=== PATIENT | female | born 1960 | race Caucasian/White ===

== ENCOUNTER 2016-12-20 06:02 | Observation (INO) | payer BC ==
[2016-12-20] MEDS ORDERED: NITROGLYCERIN SL TABS 0.4 MG TAB SUBLINGUAL STA ×3 (06:17)
[2016-12-20] MEDS ORDERED: SODIUM CHLORIDE 0.9% 1,000 ML IV STA (06:17)
[2016-12-20] MEDS ORDERED: ASPIRIN 81 MG CHEW PO STA (06:17)
--- NOTE | 2016-12-20 06:19 | ED ---
General Adult HPI - General Source: patient, RN notes reviewed Limitations: no limitations <Elian Burnham - Last Filed: 12/20/16 06:18> <Kevin Miller - Last Filed: 12/20/16 08:54> - General Stated complaint: Chest Pain Time Seen by Provider: 12/20/16 06:04 - History of Present Illness Initial comments: Patient is a pleasant 56-year-old female presenting to the emergency department complaining of chest discomfort. Onset was just prior to arrival. Patient was making pizza. Patient plaints of tightness in her chest with radiation to the back. There is some improvement since onset. Discomfort is currently rated 6/ 10. Patient does have some associated dyspnea. No nausea or diaphoresis. No history of similar symptoms previously. No leg pain or leg swelling. (Elian Burnham) - Related Data Home Medications Medication Instructions Recorded Confirmed Atenolol [Tenormin] 50 mg PO DAILY 11/26/14 12/20/16 Aspirin EC [Ecotrin] 81 mg PO DAILY 03/18/15 12/20/16 Niacin 500 mg PO DAILY 03/18/15 12/20/16 Vit C/E/Zn/Coppr/Lutein/Zeaxan 1 cap PO DAILY 03/18/15 12/20/16 [Preservision Areds 2 Softgel] Atorvastatin [Lipitor] 40 mg PO DAILY 12/20/16 12/20/16 Cholecalciferol [Vitamin D3] 1,000 unit PO DAILY 12/20/16 12/20/16 FLUoxetine HCL [PROzac] 20 mg PO DAILY 12/20/16 12/20/16 Omeprazole [PriLOSEC] 40 mg PO DAILY 12/20/16 12/20/16 metFORMIN HCL [Glucophage] 1,000 mg PO BID 12/20/16 12/20/16 sitaGLIPtin [Januvia] 100 mg PO DAILY 12/20/16 12/20/16 Allergies Allergy/AdvReac Type Severity Reaction Status Date / Time Gladwin And Derivatives Allergy Rash/Hives Verified 12/20/16 06:14 [Gladwin] metronidazole [From Flagyl] Allergy Rash/Hives Verified 12/20/16 06:14 adhesive AdvReac Rash/Hives Verified 12/20/16 06:14 Review of Systems ROS Other: All systems not noted in ROS Statement are negative. Constitutional: Denies: fever Eyes: Denies: eye pain ENT: Denies: ear pain Respiratory: Reports: dyspnea. Denies: cough Cardiovascular: Reports: chest pain Endocrine: Denies: fatigue Gastrointestinal: Denies: abdominal pain Genitourinary: Denies: dysuria Musculoskeletal: Denies: back pain Skin: Denies: rash Neurological: Denies: weakness <Elian Burnham Last Filed: 12/20/16 06:18> ROS Other: All systems not noted in ROS Statement are negative. <Kevin Miller - Last Filed: 12/20/16 08:54> ROS Statement: Those systems with pertinent positive or pertinent negative responses have been documented in the HPI. Past Medical History Past Medical History: Diabetes Mellitus, GERD/Reflux, Hyperlipidemia, Hypertension Additional Past Medical History / Comment(s): Kidney stones History of Any Multi-Drug Resistant Organisms: MRSA Date of last positivie culture/infection: 2007 MDRO Source:: buttock Past Surgical History: Cholecystectomy, Hysterectomy, Orthopedic Surgery Additional Past Surgical History / Comment(s): abd tumor, d & c, hammer toe, I& D OF ABSCESS, MYOMECTOMY Past Anesthesia/Blood Transfusion Reactions: No Reported Reaction Past Psychological History: Depression Smoking Status: Never smoker Past Alcohol Use History: Rare Past Drug Use History: None Reported - Past Family History Father Family Medical History: Cancer Additional Family Medical History / Comment(s): COLON <Elian Burnham - Last Filed: 12/20/16 06:18> General Exam Limitations: no limitations General appearance: alert, in no apparent distress Head exam: Present: atraumatic Eye exam: Present: normal appearance, PERRL ENT exam: Present: normal oropharynx Neck exam: Present: normal inspection Respiratory exam: Present: normal lung sounds bilaterally. Absent: chest wall tenderness Cardiovascular Exam: Present: regular rate, normal rhythm GI/Abdominal exam: Present: soft. Absent: tenderness Extremities exam: Present: normal inspection. Absent: pedal edema, calf tenderness Back exam: Present: normal inspection Neurological exam: Present: alert Psychiatric exam: Present: normal affect, normal mood Skin exam: Absent: rash <Elian Burnham Last Filed: 12/20/16 06:18> EKG Findings - EKG Comments: EKG Findings:: Normal sinus rhythm at 64. Normal intervals. Normal axis. Normal QRS. Normal ST-T. <Burnham,Elian - Last Filed: 12/20/16 06:18> Medical Decision Making <Elian Burnham - Last Filed: 12/20/16 06:18> - Lab Data Result diagrams: 12/20/16 06:27 12/20/16 06:27 <Kevin Miller - Last Filed: 12/20/16 08:54> - Medical Decision Making The patient was seen and examined. Report was received from previous shift. The patient does relate having some chest pain and shortness of breath which started at approximately 6 AM today. She describes it as a tightness and there is a pleuritic component. It seems to radiate posteriorly. She does relate that she had a heart catheterization 2 years ago which was negative. She denies any leg pain or swelling. She denies a history of known coronary artery disease, DVT, or pulmonary embolism. She denies any previous similar incidents. The chest x-ray did not show any acute processes. The laboratory is unremarkable. A CT angiogram of the chest was completed and this is negative for any pulmonary embolus. The possibility of her symptoms being related to cardiac disease certainly is possible. It is felt best that she be admitted to rule out the possibility of acute coronary syndrome. She is agreeable to this plan. Case will be discussed with primary care physician and patient be admitted to the hospital for further treatment. (Kevin Miller) - Lab Data Lab Results 12/20/16 12/20/16 12/20/16 Range/Units 06:27 06:27 06:27 WBC 7.6 (3.8-10.6) k/uL RBC 3.85 (3.80-5.40) m/uL Hgb 11.4 (11.4-16.0) gm/dL Hct 34.9 (34.0-46.0) % MCV 90.6 (80.0-100.0) fL MCH 29.5 (25.0-35.0) pg MCHC 32.5 (31.0-37.0) g/dL RDW 13.2 (11.5-15.5) % Plt Count 223 (150-450) k/uL Neutrophils % 72 % Lymphocytes % 21 % Monocytes % 4 % Eosinophils % 2 % Basophils % 0 % Neutrophils # 5.4 (1.3-7.7) k/uL Lymphocytes # 1.6 (1.0-4.8) k/uL Monocytes # 0.3 (0-1.0) k/uL Eosinophils # 0.1 (0-0.7) k/uL Basophils # 0.0 (0-0.2) k/uL PT (9.0-12.0) sec INR (<1.1) APTT (22.0-30.0) sec Sodium 142 (137-145) mmol/L Potassium 4.3 (3.5-5.1) mmol/L Chloride 104 (98-107) mmol/L Carbon Dioxide 26 (22-30) mmol/L Anion Gap 12 mmol/L BUN 20 H (7-17) mg/dL Creatinine 0.62 (0.52-1.04) mg/dL Est GFR (MDRD) Af Amer >60 (>60 ml/min/1.73 sqM) Est GFR (MDRD) Non-Af >60 (>60 ml/min/1.73 sqM) Glucose 145 H (74-99) mg/dL Calcium 9.5 (8.4-10.2) mg/dL Magnesium 1.6 (1.6-2.3) mg/dL Total Bilirubin 0.6 (0.2-1.3) mg/dL AST 13 L (14-36) U/L ALT 22 (9-52) U/L Alkaline Phosphatase 106 (38-126) U/L Total Creatine Kinase 30 (30-135) U/L CK-MB (CK-2) <0.2 (0.0-2.4) ng/mL CK-MB (CK-2) Rel Index Troponin I <0.012 (0.000-0.034) ng/mL Total Protein 6.7 (6.3-8.2) g/dL Albumin 3.8 (3.5-5.0) g/dL 12/20/16 Range/Units 06:27 WBC (3.8-10.6) k/uL RBC (3.80-5.40) m/uL Hgb (11.4-16.0) gm/dL Hct (34.0-46.0) % MCV (80.0-100.0) fL MCH (25.0-35.0) pg MCHC (31.0-37.0) g/dL RDW (11.5-15.5) % Plt Count (150-450) k/uL Neutrophils % % Lymphocytes % % Monocytes % % Eosinophils % % Basophils % % Neutrophils # (1.3-7.7) k/uL Lymphocytes # (1.0-4.8) k/uL Monocytes # (0-1.0) k/uL Eosinophils # (0-0.7) k/uL Basophils # (0-0.2) k/uL PT 10.2 (9.0-12.0) sec INR 1.0 (<1.1) APTT 22.5 (22.0-30.0) sec Sodium (137-145) mmol/L Potassium (3.5-5.1) mmol/L Chloride (98-107) mmol/L Carbon Dioxide (22-30) mmol/L Anion Gap mmol/L BUN (7-17) mg/dL Creatinine (0.52-1.04) mg/dL Est GFR (MDRD) Af Amer (>60 ml/min/1.73 sqM) Est GFR (MDRD) Non-Af (>60 ml/min/1.73 sqM) Glucose (74-99) mg/dL Calcium (8.4-10.2) mg/dL Magnesium (1.6-2.3) mg/dL Total Bilirubin (0.2-1.3) mg/dL AST (14-36) U/L ALT (9-52) U/L Alkaline Phosphatase (38-126) U/L Total Creatine Kinase (30-135) U/L CK-MB (CK-2) (0.0-2.4) ng/mL CK-MB (CK-2) Rel Index Troponin I (0.000-0.034) ng/mL Total Protein (6.3-8.2) g/dL Albumin (3.5-5.0) g/dL Disposition <Elian Burnham - Last Filed: 12/20/16 06:18> Time of Disposition: 08:54 <Kevin Miller - Last Filed: 12/20/16 08:54> Clinical Impression: Chest pain, Dyspnea, Unstable angina Disposition: ADMITTED IP TO THIS HOSP Condition: Fair
[2016-12-20 06:44] LABS: Basophils % (A) 0 %; CH 29.9; CHCM 33.1; Eosinophils # (A) 0.1 k/uL (0-0.7); Eosinophils % (A) 2 %; HCT 34.9 % (34.0-46.0); HDW 2.42; HGB 11.4 gm/dL (11.4-16.0); Luc # (Auto) 0.11; Luc % (Auto) 1; Lymphocytes # (A) 1.6 k/uL (1.0-4.8); Lymphocytes % (A) 21 %; MCH 29.5 pg (25.0-35.0); MCHC 32.5 g/dL (31.0-37.0); MCV 90.6 fL (80.0-100.0); Mean Platelet Volume 6.9; Monocytes # (A) 0.3 k/uL (0-1.0); Monocytes % (A) 4 %; Neutrophils # (A) 5.4 k/uL (1.3-7.7); Neutrophils % (A) 72 %; RBC 3.85 m/uL (3.80-5.40); RDW 13.2 % (11.5-15.5); WBC 7.6 k/uL (3.8-10.6); WBC (Perox) 7.91
[2016-12-20 06:49] LABS: ALT 22 U/L (9-52); AST 13 U/L (14-36); Alkaline Phosphatase 106 U/L (38-126); Anion Gap 12 mmol/L; Blood Urea Nitrogen 20 mg/dL (7-17); Calcium 9.5 mg/dL (8.4-10.2); Carbon Dioxide 26 mmol/L (22-30); Chloride 104 mmol/L (98-107); Glucose 145 mg/dL (74-99); Magnesium 1.6 mg/dL (1.6-2.3); Non-African American GFR(MDRD) >60 (>60 ml/min/1.73 sqM); Potassium 4.3 mmol/L (3.5-5.1); Prothrombin Time 10.2 sec (9.0-12.0); Sodium 142 mmol/L (137-145); Total Bilirubin 0.6 mg/dL (0.2-1.3); Total Protein 6.7 g/dL (6.3-8.2)
[2016-12-20 06:55] LABS: Partial Thromboplastin Time 22.5 sec (22.0-30.0)
--- NOTE | 2016-12-20 06:58 | XR ---
EXAM: XR Chest, 2 Views. CLINICAL HISTORY: Reason: Chest Pain TECHNIQUE: Frontal and lateral views of the chest. COMPARISON: 10/19/13 FINDINGS: Lungs: Unremarkable. No consolidation. Pleural spaces: Unremarkable. No pneumothorax. Heart: Unremarkable. No cardiomegaly. Mediastinum: Unremarkable. Bones: Unremarkable. No acute fracture. IMPRESSION: No evidence of active cardiopulmonary abnormality.
[2016-12-20 07:08] LABS: Creatine Kinase 30 U/L (30-135)
[2016-12-20 07:21] LABS: Creatine Kinase MB <0.2 ng/mL (0.0-2.4); Troponin I <0.012 ng/mL (0.000-0.034)
[2016-12-20] MEDS ORDERED: RX INFO: IV CONTRAST WAS GIVEN 1 EACH MISC MISCELLANE PRN (07:50)
--- NOTE | 2016-12-20 08:41 | CT ---
EXAMINATION TYPE: CT angio chest DATE OF EXAM: 12/20/2016 8:34 AM COMPARISON: NONE HISTORY: Chest pain. PE. CT DLP: 707 mGycm Automated exposure control for dose reduction was used. CONTRAST: CTA scan of the thorax is performed with IV Contrast, patient injected with 100 ml mL of Omnipaque 35 0, pulmonary embolism protocol. . FINDINGS: The lungs are clear. There is no significant axillary, internal mammary, mediastinal or hilar adenopathy. There is no evidence of pulmonary embolus. The aorta is normal in caliber without evidence of dissection. The heart is mildly enlarged. There is no pleural or pericardial fluid. Within the abdomen, the gallbladder is been removed. There is a small sliding hiatal hernia. The visu alized viscera are unremarkable. Mild hypertrophic spondylosis within the spine. IMPRESSION: 1. THIS EXAMINATION IS NEGATIVE FOR PULMONARY EMBOLUS. 2. CARDIOMEGALY. 3. MILD DEGENERATIVE CHANGES WITHIN THE SPINE.
[2016-12-20] MEDS ORDERED: HEPARIN SODIUM,PORCINE 5,000 UNIT/ML 1 ML VIAL IV ONE (08:55)
[2016-12-20] MEDS ORDERED: HEPARIN SODIUM,PORCINE 5,000 UNIT/ML 1 ML VIAL IV PRN (08:55)
[2016-12-20] MEDS ORDERED: NITROGLYCERIN SL TABS 0.4 MG TAB SUBLINGUAL PRN (08:55)
[2016-12-20] MEDS: HEPARIN SODIUM,PORCINE/D5W PMX 25,000 UNIT in DEXTROSE/WATER 1 500ML.BAG IV SCH ×2 (09:36→18:31)
[2016-12-20 09:37] LABS: Glucose,Whole Blood 125 mg/dL (75-99)
[2016-12-20 13:01] LABS: Creatine Kinase 31 U/L (30-135)
[2016-12-20 13:11] LABS: Creatine Kinase MB <0.2 ng/mL (0.0-2.4); Troponin I <0.012 ng/mL (0.000-0.034)
[2016-12-20] MEDS: FLUoxetine HCL 20 MG CAP PO SCH ×2 (13:21→13:22)
[2016-12-20] MEDS: CHOLECALCIFEROL 1,000 UNIT TAB PO SCH (13:23)
[2016-12-20] MEDS: ATENOLOL 50 MG TAB PO SCH (13:23)
[2016-12-20] MEDS: LINAGLIPTIN 5 MG TABLET PO SCH (13:23)
[2016-12-20] MEDS: ATORVASTATIN 40 MG TAB PO SCH (13:23)
[2016-12-20] MEDS: VIT A,C & E-LUTEIN-MINERALS 1 EACH TAB PO SCH (13:24)
[2016-12-20] MEDS: PANTOPRAZOLE 40 MG TABLET PO SCH (13:24)
[2016-12-20] MEDS: NIACIN TR 500 MG CAPSULE.ER PO SCH (13:24)
[2016-12-20] MEDS: metFORMIN 500 MG TAB PO SCH ×2 (13:24→22:13)
[2016-12-20] MEDS: NITROGLYCERIN OINT 1 INCH/GM PACKET TOPICAL SCH ×2 (13:25→20:25)
--- NOTE | 2016-12-20 14:07 | P.HPIM ---
History of Present Illness H&P Date: 12/20/16 Chief Complaint: chest pain Vonda is a nice 56 y/o female with h/o hypertension, hyperlipidemia and diabetes.she presented to the ER with Chest Pressure radiating to her back that was constant prressure like. she was ? dyspnic with pain. No nausea or vomitting she indicates sx better with NTG. Review of Systems All systems: negative Past Medical History Past Medical History: Coronary Artery Disease (CAD), Chest Pain / Angina, Diabetes Mellitus, GERD/Reflux, Hyperlipidemia, Hypertension, Renal Disease, Sleep Apnea/CPAP/BIPAP Additional Past Medical History / Comment(s): Mild CAD, NIDDM type II, KHOA with bipap, recently tx for R foot ingrown toenail with ABX, kidney stones, sinus problems. History of Any Multi-Drug Resistant Organisms: MRSA Date of last positivie culture/infection: 2007 MDRO Source:: buttock Past Surgical History: Bladder Surgery, Cholecystectomy, Hysterectomy, Orthopedic Surgery, Tubal Ligation Additional Past Surgical History / Comment(s): 2013 cardiac cath, EGD/ colonoscopy, open cholecystectomy, MYOMECTOMY, dermoid tumor removed from abdomin, R foot hammer toe, I&D perirectal abscess, anal fistula repair, monarc procedure. Past Anesthesia/Blood Transfusion Reactions: No Reported Reaction Past Psychological History: Anxiety, Depression Additional Psychological History / Comment(s): Pt resides with her spouse. She is independent. Smoking Status: Never smoker Past Alcohol Use History: Rare Past Drug Use History: None Reported - Past Family History Father Family Medical History: Cancer Additional Family Medical History / Comment(s): Father from COLON cancer in his 60's. Mother Family Medical History: Coronary Artery Disease (CAD), Diabetes Mellitus, Liver Disease, Renal Disease Medications and Allergies Home Medications Medication Instructions Recorded Confirmed Type Atenolol [Tenormin] 50 mg PO DAILY 11/26/14 12/20/16 History Aspirin EC [Ecotrin] 81 mg PO DAILY 03/18/15 12/20/16 History Niacin 500 mg PO DAILY 03/18/15 12/20/16 History Vit C/E/Zn/Coppr/Lutein/Zeaxan 1 cap PO DAILY 03/18/15 12/20/16 History [Preservision Areds 2 Softgel] Atorvastatin [Lipitor] 40 mg PO DAILY 12/20/16 12/20/16 History Cholecalciferol [Vitamin D3] 1,000 unit PO DAILY 12/20/16 12/20/16 History FLUoxetine HCL [PROzac] 20 mg PO DAILY 12/20/16 12/20/16 History Omeprazole [PriLOSEC] 40 mg PO DAILY 12/20/16 12/20/16 History metFORMIN HCL [Glucophage] 1,000 mg PO BID 12/20/16 12/20/16 History sitaGLIPtin [Januvia] 100 mg PO DAILY 12/20/16 12/20/16 History Allergies Allergy/AdvReac Type Severity Reaction Status Date / Time Mccrory And Derivatives Allergy Rash/Hives Verified 12/20/16 06:14 [Mccrory] metronidazole [From Flagyl] Allergy Rash/Hives Verified 12/20/16 06:14 adhesive AdvReac Rash/Hives Verified 12/20/16 06:14 Physical Exam Vitals: Vital Signs Temp Pulse Resp BP Pulse Ox 12/20/16 13:26 97.3 F L 56 L 16 137/65 96 12/20/16 11:32 97.6 F 64 16 137/75 95 12/20/16 10:10 97.5 F L 57 L 16 160/77 97 12/20/16 09:41 58 L 16 159/76 98 12/20/16 09:11 96.8 F L 61 14 170/74 97 - Constitutional General appearance: morbidly obese - EENT Eyes: EOMI, PERRLA - Neck Neck: no lymphadenopathy, no thyromegaly - Respiratory Respiratory: bilateral: CTA - Cardiovascular Rhythm: regular Heart sounds: normal: S1, S2 - Gastrointestinal General gastrointestinal: normal bowel sounds, no organomegaly - Neurologic Neurologic: CNII-XII intact Results CBC & Chem 7: 12/20/16 06:27 12/20/16 06:27 Labs: Abnormal Lab Results - Last 24 Hours (Table) 12/20/16 Range/Units 09:35 POC Glucose (mg/dL) 125 H (75-99) mg/dL Chest x-ray: report reviewed CT scan - chest: report reviewed Thrombosis Risk Factor Assmnt - DVT/VTE Prophylaxis DVT/VTE Prophylaxis: Pharmacologic Prophylaxis ordered - Choose All That Apply Any of the Below Risk Factors Present?: Yes Each Factor Represents 1 point: Age 41-60 years, Obesity (BMI >25) Other Risk Factors: No Other congenital or acquired thrombophilia - If yes, enter type in comment: No Thrombosis Risk Factor Assessment Total Risk Factor Score: 2 Thrombosis Risk Factor Assessment Level: Low Risk Assessment and Plan Plan: chest pain/eval for Unstable ANgina: cardiology consult to determine a proper test for her. IESHA given in ER DM2: cont januvia and Metformin. Metformin may need to be held depending on dye studies done Htn: cont atenolol hyperlipidemia; Cont atorvastatin morbid obesity: life style mods outpt gi prophylaxis: add pepcid DVT prophylaxis: cont Heparin drip await cardiology recommendations, possible D/C today
[2016-12-20] MEDS: FAMOTIDINE 20 MG TAB PO SCH (14:31)
--- NOTE | 2016-12-20 17:43 | CONS ---
DATE OF CONSULTATION: 12/20/2016 Mrs. Haley is a 56-year-old female with known history of hypertension, hyperlipidemia, history of diabetes mellitus, who presented to the emergency room with symptoms of chest discomfort. The discomfort occurred while she was standing today, radiating to her back, and worse when she takes a deep breath. It was not related to physical activity. She did not have any associated dizziness, palpitations or syncope. She has not been very active physically. She was last seen in our office in October of 2015. This is the first time she has had symptoms of chest discomfort since that time. She underwent cardiac catheterization in October of 2013. That showed minimal CAD, and her left ventricular systolic function by echocardiography in 2012 was normal. Patient denies any clear PND or orthopnea. She has no dizziness. No palpitation. No syncope. Her coronary risk factors are remarkable for diabetes, hypertension and hyperlipidemia. She is a nonsmoker. Her medications at home include: 1. Januvia. 2. Metformin 1 gram twice a day. 3. Omeprazole. 4. Fluoxetine. 5. Lipitor 40 mg daily. 6. Atenolol 50 mg daily. 7. Aspirin once a day. 8. Niacin. REVIEW OF SYSTEMS: RESPIRATORY SYSTEM: She has no history of obstructive lung disease. No recent wheezing or cough. GI SYSTEM: No recent GI bleeding. No peptic ulcer disease. She does have history of gastroesophageal reflux disease. SYSTEM: No dysuria or hematuria. NERVOUS SYSTEM: No stroke or seizure. MUSCULOSKELETAL: She has history of arthritis. PHYSICAL EXAMINATION: She is a 56-year-old female, alert, oriented, in no apparent distress. Obese. Blood pressure 137/70 with a heart rate in the 60s. HEAD: Normocephalic. EYES: Sclerae anicteric. NECK: Good carotid upstroke. No bruit. No jugular venous distention. LUNGS: Clear to auscultation. HEART: Regular rate, rhythm. S1, S2. No S3. Systolic murmur heard at the base, ejection type; no diastolic murmur. No rub. ABDOMEN: Soft, obese, nontender. Positive bowel sounds. No organomegaly. EXTREMITIES: No edema. Plus one distal pulses. Lab data revealed troponin less than 0.012. BUN and creatinine of 20 and 0.62. Hemoglobin 11.4. EKG reveals sinus mechanism, normal axis and intervals. Normal electrocardiogram. Chest x-ray revealed no evidence of acute infiltrate. CT angiogram of the chest revealed no evidence of pulmonary embolism. IMPRESSION: 1. Chest discomfort of unclear etiology; has some atypical features for ischemic heart disease, respirophasic in pattern in a patient with history of mild coronary artery disease by cardiac catheterization in 2013 as well as a history of hypertension, hyperlipidemia and diabetes mellitus. 2. History of hypertension. 3. Hyperlipidemia. 4. Diabetes mellitus. 5. Morbid obesity. RECOMMENDATION: I will obtain serial enzymes. If there is no evidence of any significant changes, then I would recommend proceeding with dobutamine stress echocardiogram. On the other hand, if she has abnormal lab data, then I would recommend proceeding with cardiac catheterization. The rationale behind that as well as the risks and complications were discussed with the patient, who was in full understanding and agreement. Thank you for this consult. Will follow with you.
[2016-12-20] MEDS ORDERED: ACETAMINOPHEN TAB 325 MG TAB PO PRN (19:35)
[2016-12-20 20:36] VITALS: RESP 16
[2016-12-20 20:54] LABS: Glucose,Whole Blood 143 mg/dL (75-99)
[2016-12-20 21:40] LABS: Creatine Kinase 28 U/L (30-135)
[2016-12-20 21:52] LABS: Creatine Kinase MB <0.2 ng/mL (0.0-2.4); Troponin I <0.012 ng/mL (0.000-0.034)
[2016-12-21] MEDS: NITROGLYCERIN OINT 1 INCH/GM PACKET TOPICAL SCH (03:15)
[2016-12-21] MEDS ORDERED: DOBUTamine DRIP for NUC MED 500 MG in DEXTROSE/WATER 1 250ML.BAG IV ONE (05:00)
[2016-12-21 06:43] LABS: Glucose,Whole Blood 146 mg/dL (75-99)
[2016-12-21 07:27] LABS: Mean Platelet Volume 6.9
[2016-12-21 07:33] LABS: Cholesterol 119 mg/dL (<200); HDL Cholesterol 38 mg/dL (40-60); Triglycerides 180 mg/dL (<150)
[2016-12-21] MEDS ORDERED: ASPIRIN 325 MG TAB PO SCH (09:00)
--- NOTE | 2016-12-21 10:24 | P.PN ---
Progress Note - Text Patient was seen and evaluated. The patient is pain free now. Cardiac enzymes are negative. Stress echo is pending. We will await those results and cardiology recommendations. Possible discharge this afternoon
--- NOTE | 2016-12-21 11:23 | PN ---
Mrs. Haley is a 56-year-old female with known history of hypertension, hyperlipidemia, and diabetes mellitus, who presented yesterday with chest discomfort. She is pain free at this time. Her breathing is stable. She denies any dizziness. She denies any palpitation. She is feeling quite well. She continues to be at this time on aspirin once a day, atenolol 50 mg daily, Lipitor 40 mg daily and metformin. PHYSICAL EXAMINATION: Blood pressure 132/60 with the heart rate in 90s. LUNGS: Clear. HEART: Regular rate and rhythm. S1, S2, no S3, no rub. ABDOMEN: Soft, obese, nontender. EXTREMITIES: No edema. Lab data revealed cholesterol 119, LDL of 45. Troponin less than 0.012. IMPRESSION: 1. Chest discomfort of unclear etiology. No evidence of acute coronary syndrome. 2. Hypertension. 3. Hyperlipidemia. 4. Diabetes mellitus. RECOMMENDATION: Will proceed with stress echocardiogram today and if there is no evidence of inducible ischemia, then no further cardiac workup will be needed.
[2016-12-21 12:10] LABS: Hemoglobin A1C 7.1 % (4.2-6.1)
--- NOTE | 2016-12-21 12:21 | ECHOF ---
Referral Reason:cp and sob MEASUREMENTS -------- HEIGHT: 162.6 cm WEIGHT: 118.4 kg BP: 135/64 IVSd: 1.3 cm (0.6 - 1.1) LVIDd: 6.1 cm (3.9 - 5.3) LVPWd: 1.4 cm (0.6 - 1.1) IVSs: 1.8 cm LVIDs: 4.9 cm LVPWs: 1.8 cm LA Diam: 4.1 cm (2.7 - 3.8) Ao Diam: 3.3 cm (2.0 - 3.7) AV Cusp: 2.5 cm (1.5 - 2.6) LA Diam: 4.3 cm (2.7 - 3.8) MV EXCURSION: 18.655 mm (> 18.000) MV EF SLOPE: 59 mm/s (70 - 150) EPSS: 1.3 cm MV E Keith: 0.60 m/s MV DecT: 268 ms MV A Keith: 0.71 m/s MV E/A Ratio: 0.84 RAP: 5.00 mmHg RVSP: 19.26 mmHg FINDINGS -------- Sinus rhythm. Morbid Obesity This was a techncally difficult study with suboptimal views, , Definity utilized for enhancement of images. There is mild concentric left ventricular hypertrophy. Overall left ventricular systolic function is low-normal with, an EF between 50 - 55 %. The right ventricle is normal in size. The left atrium is mildly dilated. The right atrial size is normal. There is mild aortic valve sclerosis. There is no evidence of aortic regurgitation. Mild mitral annular calcification present. Mild mitral regurgitation is present. Mild tricuspid regurgitation present. There is no evidence of pulmonary hypertension. The right ventricular systolic pressure, as measured by Doppler, is 19.26mmHg. There is no pulmonic regurgitation present. The aortic root size is normal. There is no pericardial effusion. CONCLUSIONS -------- 1. This was a techncally difficult study with suboptimal views, , Definity utilized for enhancement of images. 2. The right ventricular systolic pressure, as measured by Doppler, is 19.26mmHg. 3. There is mild concentric left ventricular hypertrophy. 4. Overall left ventricular systolic function is low-normal with, an EF between 50 - 55 %. 5. The left atrium is mildly dilated. 6. There is mild aortic valve sclerosis. 7. Mild mitral annular calcification present. 8. Mild mitral regurgitation is present. 9. Mild tricuspid regurgitation present. 10. There is no evidence of pulmonary hypertension. POWERSAW SUPERVISOR: Gosia Chin RDCS
[2016-12-21 12:27] LABS: Glucose,Whole Blood 111 mg/dL (75-99)
[2016-12-21 12:38] VITALS: BP 144/74; PULSE 72; TEMP 97.7
[2016-12-21] MEDS: metFORMIN 500 MG TAB PO SCH (12:38)
--- NOTE | 2016-12-21 12:47 | ECHOS ---
DATE OF SERVICE: 12/21/2016 AGE: 56Y SEX: F HT: 64" WT: 261 lbs. Protocol Bg: Others: Dobutamine Stress Echo Stage: 3 Dur. of Exercise: 7:45 *Heart Rate Blood Pressure *Rest: 65 Rest: 124/61 * *Max. Achieved: 151 Maximum BP: 174/70 85% PMHR: 140 100% PMHR: 165 *METS: - INDICATIONS: Chest pain. MEDICATIONS: - Patient was given dobutamine infusion according to the standard protocol. Peak heart rate of 151 was achieved. Maximum blood pressure of 174/70 mmHg was noted. The resting EKG shows normal sinus rhythm with normal VT interval and QRS duration and normal ST-T waves. No ST segment depression suggestive of ischemia is noted. The baseline echocardiographic images reveal a normal left ventricular chamber size with normal left ventricular systolic function. At the peak dose of dobutamine infusion, normal increase in the wall thickness and contractility is noted. FINAL IMPRESSION: 1. This dobutamine stress echocardiographic study is negative for stress-induced ischemia. 2. EKG portion of the stress test is not suggestive of ischemia.
[2016-12-21] MEDS: PANTOPRAZOLE 40 MG TABLET PO SCH (13:21)
[2016-12-21] MEDS: ATORVASTATIN 40 MG TAB PO SCH (13:21)
[2016-12-21] MEDS: CHOLECALCIFEROL 1,000 UNIT TAB PO SCH (13:21)
[2016-12-21] MEDS: VIT A,C & E-LUTEIN-MINERALS 1 EACH TAB PO SCH (13:21)
[2016-12-21] MEDS: FLUoxetine HCL 20 MG CAP PO SCH (13:21)
[2016-12-21] MEDS: FAMOTIDINE 20 MG TAB PO SCH (13:21)
[2016-12-21] MEDS: ATENOLOL 50 MG TAB PO SCH (13:21)
[2016-12-21] MEDS: LINAGLIPTIN 5 MG TABLET PO SCH (13:21)
[2016-12-21] MEDS: NIACIN TR 500 MG CAPSULE.ER PO SCH (13:21)
== END 2016-12-21 15:45 | disposition home or self-care (01) ==
LOC: EC 06:02 → 3OBS 08:55
PROVIDERS: ADMIT Family Medicine; ATTEND Family Medicine
DX: R07.89 Other chest pain (principal); K21.9 Gastro-esophageal reflux disease without esophagitis; E78.5 Hyperlipidemia, unspecified; I10 Essential (primary) hypertension; E11.9 Type 2 diabetes mellitus without complications; I25.110 Atherosclerotic heart disease of native coronary artery with unstable angina pectoris; G47.33 Obstructive sleep apnea (adult) (pediatric); F32.9 Major depressive disorder, single episode, unspecified; F41.9 Anxiety disorder, unspecified; Z82.49 Family history of ischemic heart disease and other diseases of the circulatory system; Z83.3 Family history of diabetes mellitus; Z79.82 Long term (current) use of aspirin; Z90.710 Acquired absence of both cervix and uterus; Z86.14 Personal history of Methicillin resistant Staphylococcus aureus infection; Z87.442 Personal history of urinary calculi; Z80.0 Family history of malignant neoplasm of digestive organs; Z79.84 Long term (current) use of oral hypoglycemic drugs; Z90.49 Acquired absence of other specified parts of digestive tract; Z79.899 Other long term (current) drug therapy
CPT/HCPCS: 99285 ×2; 96365 ×2; 96366 ×9; 96376 ×3; 36415; 93005; 93350; 93017; 93306; 80061; 80053; 83036; 82550; 82553; 83735; 84484; 85025; 85049; 85610; 85730 ×2; 71020; 71275; G0378 ×2; J1250; J1644 ×2; Q9967; Q9957 ×2

== ENCOUNTER → 2017-08-08 | Outpatient (CLI) | payer BC ==
--- NOTE | 2017-08-10 09:16 | MM ---
Reason for exam: screening (asymptomatic). Last mammogram was performed 1 year and 1 month ago. History: Patient is postmenopausal and is nulliparous. Family history of breast cancer in 2 maternal aunts at age 45. Took hormonal contraceptives for 7 years beginning at age 31. Physical Findings: A clinical breast exam by your physician is recommended on an annual basis and results should be correlated with mammographic findings. MG Screening Mammo w CAD Bilateral CC and MLO view(s) were taken. Prior study comparison: June 30, 2016, bilateral MG 3d screening mammo w/cad. June 11, 2015, bilateral MG screening mammo w CAD. The breast tissue is heterogeneously dense. This may lower the sensitivity of mammography. No suspicious abnormality. No significant changes when compared with prior studies. ASSESSMENT: Negative, BI-RAD 1 RECOMMENDATION: Routine screening mammogram of both breasts in 1 year.
== END | disposition home or self-care (01) ==
LOC: RADMAMWWP 14:11
PROVIDERS: ATTEND Obstetrics & Gynecology
DX: Z12.31 Encounter for screening mammogram for malignant neoplasm of breast (principal); Z80.3 Family history of malignant neoplasm of breast

== ENCOUNTER → 2018-04-19 | Outpatient (CLI) | payer BC ==
[2018-04-19 08:26] LABS: ALT 25 U/L (9-52); AST 27 U/L (14-36); Alkaline Phosphatase 99 U/L (38-126); Anion Gap 11 mmol/L; Blood Urea Nitrogen 18 mg/dL (7-17); Calcium 9.4 mg/dL (8.4-10.2); Carbon Dioxide 26 mmol/L (22-30); Chloride 104 mmol/L (98-107); Cholesterol 137 mg/dL (<200); Glucose 131 mg/dL (74-99); HDL Cholesterol 47 mg/dL (40-60); LDL Cholesterol,Calculated 76 mg/dL (0-99); Potassium 4.3 mmol/L (3.5-5.1); Sodium 141 mmol/L (137-145); Total Bilirubin 0.6 mg/dL (0.2-1.3); Total Protein 6.7 g/dL (6.3-8.2); Triglycerides 71 mg/dL (<150)
== END | disposition home or self-care (01) ==
LOC: LABWHC1 07:38
PROVIDERS: ATTEND Internal Medicine Interventional Cardiology
DX: E78.2 Mixed hyperlipidemia (principal)
CPT/HCPCS: 36415; 80053; 80061

== ENCOUNTER → 2018-08-11 | Outpatient (CLI) | payer BC ==
--- NOTE | 2018-08-14 11:56 | MM ---
Reason for exam: screening (asymptomatic). Last mammogram was performed 1 year ago. History: Patient is postmenopausal and is nulliparous. Family history of breast cancer in 2 maternal aunts at age 45. Took hormonal contraceptives for 7 years beginning at age 31. Physical Findings: A clinical breast exam by your physician is recommended on an annual basis and results should be correlated with mammographic findings. MG Screening Mammo w CAD Bilateral CC and MLO view(s) were taken. Prior study comparison: August 08, 2017, bilateral MG screening mammo w CAD. June 30, 2016, bilateral MG 3d screening mammo w/cad. The breast tissue is heterogeneously dense. This may lower the sensitivity of mammography. No significant changes when compared with prior studies. ASSESSMENT: Benign, BI-RAD 2 RECOMMENDATION: Routine screening mammogram of both breasts in 1 year.
== END | disposition home or self-care (01) ==
LOC: RADMAMWWP 07:32
PROVIDERS: ATTEND Obstetrics & Gynecology
DX: Z12.31 Encounter for screening mammogram for malignant neoplasm of breast (principal)
CPT/HCPCS: 77067

== ENCOUNTER → 2019-07-26 | Outpatient (CLI) | payer BC ==
[2019-07-26 08:02] LABS: Basophils % (A) 0 %; Eosinophils # (A) 0.2 k/uL (0-0.7); Eosinophils % (A) 2 %; HCT 35.2 % (34.0-46.0); HGB 11.2 gm/dL (11.4-16.0); Hypochromasia Slight; Lymphocytes # (A) 2.5 k/uL (1.0-4.8); Lymphocytes % (A) 27 %; MCH 28.1 pg (25.0-35.0); MCV 87.7 fL (80.0-100.0); Monocytes # (A) 0.4 k/uL (0-1.0); Monocytes % (A) 4 %; Neutrophils # (A) 5.8 k/uL (1.3-7.7); Neutrophils % (A) 64 %; Platelet Count 293 k/uL (150-450); RBC 4.01 m/uL (3.80-5.40); RDW 14.7 % (11.5-15.5)
[2019-07-26 12:04] LABS: T4, Free (Free Thyroxine) 1.1 ng/dL (0.80-1.80)
[2019-07-26 15:44] LABS: African American GFR (CKD) 110.7 (60.0-200.0); Albumin 4.4 g/dL (3.80-4.90); Albumin/Globulin Ratio 2.1 (1.60-3.17); Anion Gap 9.8 mmol/L (4.00-12.00); BUN/Creat Ratio 15.71 Ratio (12.00-20.00); Calcium 9.5 mg/dL (8.7-10.3); Carbon Dioxide 26.2 mmol/L (21.6-31.8); Chol/HDL Ratio 3.03; Globulin 2.1 g/dL (1.6-3.3); LDL Cholesterol,Calculated 64.8 mg/dL (0.0-131.0); Potassium 4.3 mmol/L (3.5-5.5); Total Bilirubin 0.5 mg/dL (0.3-1.2); Total Protein 6.5 g/dL (6.2-8.2); VLDL Calculation 14.2 mg/dL (5.00-40.00)
== END | disposition home or self-care (01) ==
LOC: LABWHC1 06:58
PROVIDERS: ATTEND Nurse Practitioner Women's Health
DX: Z00.00 Encounter for general adult medical examination without abnormal findings (principal); I10 Essential (primary) hypertension; E55.9 Vitamin D deficiency, unspecified; E11.9 Type 2 diabetes mellitus without complications; Z79.899 Other long term (current) drug therapy
CPT/HCPCS: 36415; 80053; 80061; 82306; 84439; 84443; 85025

== ENCOUNTER → 2019-09-13 | Outpatient (CLI) | payer BC ==
--- NOTE | 2019-09-14 10:22 | MM ---
Reason for exam: screening (asymptomatic). Last mammogram was performed 1 year and 1 month ago. History: Patient is postmenopausal and is nulliparous. Family history of breast cancer in 2 maternal aunts at age 45. Took hormonal contraceptives for 7 years beginning at age 31. Physical Findings: A clinical breast exam by your physician is recommended on an annual basis and results should be correlated with mammographic findings. MG Screening Mammo w CAD Bilateral CC and MLO view(s) were taken. XCCL view(s) were taken of the right breast. XCCM view(s) were taken of the left breast. Prior study comparison: August 11, 2018, bilateral MG screening mammo w CAD. August 08, 2017, bilateral MG screening mammo w CAD. There are scattered fibroglandular densities. No significant changes when compared with prior studies. ASSESSMENT: Negative, BI-RAD 1 RECOMMENDATION: Routine screening mammogram of both breasts in 1 year.
== END | disposition home or self-care (01) ==
LOC: RADMAMWWP 06:50
PROVIDERS: ATTEND Family Medicine
DX: Z12.31 Encounter for screening mammogram for malignant neoplasm of breast (principal); Z80.3 Family history of malignant neoplasm of breast
CPT/HCPCS: 77067

== ENCOUNTER → 2020-07-03 | Outpatient (CLI) | payer BC ==
--- NOTE | 2020-07-04 10:02 | MR ---
EXAMINATION TYPE: MR knee LT wo con DATE OF EXAM: 07/03/2020 COMPARISON: None HISTORY: Pain in left knee CONTRAST: None Technique: Multiplanar, multiecho imaging on a 3.0 Andreina magnet is performed through the knee. FINDINGS: There is a small joint effusion present. The posterior medial meniscus appears small. No d iscrete meniscal tears are identified. Minimal increased signal within the posterior horn lateral men iscus may be present which can be compatible with degenerative change or type I internal tear. There is loss of the articular cartilage within the medial compartment. There is increased signal wit hin the medial femoral condyle plateau. Milder loss of articular cartilage is present on the lateral compartment. Patellofemoral compartment has mild patellar thinning of articular cartilage. Posterior superior posterior inferior patellar spurring is noted. Distal quadriceps tendon and patellar tendon are intact. Posterior cruciate ligament is intact. The a nterior cruciate ligament may have a partial tear. The superior communication with the femur is poorl y visualized. Complete tear could be considered within the differential. Correlate with the history a nd clinical symptoms. Medial collateral ligament appears intact. Lateral collateral ligament appears intact. IMPRESSIONS: 1. There is at least partial tear of the anterior cruciate ligament. Orientation appears preserved. T he insertion on the femur however is not identified incomplete tear should be considered. 2. Small joint effusion. 3. Advanced osteoarthritic degenerative change with loss of the articular cartilage within the medial compartment. Adjacent bone contusion and edema is evident.
== END | disposition home or self-care (01) ==
LOC: RADMRIMAIN 11:06
PROVIDERS: ATTEND Orthopaedic Surgery
DX: M17.12 Unilateral primary osteoarthritis, left knee (principal); S83.512A Sprain of anterior cruciate ligament of left knee, initial encounter; S80.02XA Contusion of left knee, initial encounter; R60.0 Localized edema

== ENCOUNTER → 2020-07-18 | Outpatient (CLI) | payer BC ==
[2020-07-18 09:15] LABS: Basophils % (A) 1 %; Eosinophils # (A) 0.1 k/uL (0-0.7); Eosinophils % (A) 1 %; HGB 11.1 gm/dL (11.4-16.0); Lymphocytes # (A) 2.8 k/uL (1.0-4.8); Lymphocytes % (A) 38 %; MCH 29.6 pg (25.0-35.0); MCHC 31.7 g/dL (31.0-37.0); MCV 93.4 fL (80.0-100.0); Mean Platelet Volume 7.4; Monocytes # (A) 0.3 k/uL (0-1.0); Monocytes % (A) 4 %; Neutrophils # (A) 3.9 k/uL (1.3-7.7); Neutrophils % (A) 54 %; Platelet Count 218 k/uL (150-450); RBC 3.75 m/uL (3.80-5.40); RDW 13.4 % (11.5-15.5); WBC 7.3 k/uL (3.8-10.6)
[2020-07-18 09:24] LABS: Potassium 4.1 mmol/L (3.5-5.1)
== END | disposition home or self-care (01) ==
LOC: LABPAT 08:41
PROVIDERS: ATTEND Orthopaedic Surgery
DX: M23.92 Unspecified internal derangement of left knee (principal)
CPT/HCPCS: 80051; 85025; 93005

== ENCOUNTER → 2020-07-31 | Day surgery (SDC) | payer BC ==
[2020-07-29 15:59] VITALS: BMI 43.2
--- NOTE | 2020-07-30 15:23 | HP ---
HISTORY AND PHYSICAL DATE OF SURGERY: 07/31/2020 Vonda Haley is a 60-year-old patient seen with progressive left knee pain. We discussed options for treatment. She elected to proceed with left knee arthroscopy. Consent regarding the procedure was obtained. PAST MEDICAL HISTORY: Hypertension, hyperlipidemia, xkz-qjrmtik-vxmzsjxcc diabetes. PAST SURGICAL HISTORY: Cholecystectomy, foot surgery, hysterectomy, bladder suspension surgery. MEDICATIONS: Atenolol, Januvia, Lipitor, metformin. ALLERGIES: FLAGYL. SOCIAL HISTORY: She denies tobacco use. PHYSICAL EVALUATION OF THE LEFT KNEE: Range of motion is -3 to 115. Mild effusion. Tenderness medial joint line. Positive medial Howie's. Tenderness lateral joint line. Positive lateral Howie's. Ligaments stable. Hip rotation without pain. Distal neurovascular exam intact. RADIOGRAPHS OF THE LEFT KNEE: Revealed osteoarthritic changes. A left knee MRI revealed with the lateral meniscus and ACL tear, partial, along with osteoarthritis. IMPRESSION: 1. Internal derangement, left knee with meniscal tear, partial ACL tear. 2. Left knee osteoarthritis. 3. Hypertension. 4. Hyperlipidemia. 5. Dxd-ilfsxdn-ahuyuecam diabetes. PLAN: Left knee arthroscopy with partial meniscectomy, partial synovectomy, debridement, partial ACL tear. MMODL / IJN: [id number] /
[~2020-07-31] MED LIST: DEXAMETHASONE SOD PHOSPHATE 4 MG/ML 1 ML VIAL IV ONE; HYDROmorphone 0.5 MG/0.5 ML SYRINGE IVP PRN; LACTATED RINGERS 1,000 ML IV SCH; ONDANSETRON 4 MG/2 ML VIAL IVP ONE
[2020-07-31 09:37] VITALS: BP 177/81; PULSE 76; RESP 16; TEMP 97.4
== END ==
LOC: OR 08:52
PROVIDERS: ATTEND Orthopaedic Surgery
DX: Z53.8 Procedure and treatment not carried out for other reasons (principal)

== ENCOUNTER → 2020-08-20 | Outpatient (CLI) | payer BC ==
[2020-08-20 09:14] LABS: Basophils % (A) 0 %; Eosinophils # (A) 0.1 k/uL (0-0.7); Eosinophils % (A) 1 %; HGB 11.5 gm/dL (11.4-16.0); Lymphocytes # (A) 2.5 k/uL (1.0-4.8); Lymphocytes % (A) 32 %; MCH 28.4 pg (25.0-35.0); MCHC 31.9 g/dL (31.0-37.0); MCV 89.1 fL (80.0-100.0); Mean Platelet Volume 7.4; Monocytes # (A) 0.4 k/uL (0-1.0); Monocytes % (A) 5 %; Neutrophils # (A) 4.8 k/uL (1.3-7.7); Neutrophils % (A) 60 %; Platelet Count 246 k/uL (150-450); RBC 4.04 m/uL (3.80-5.40); RDW 13.6 % (11.5-15.5); WBC 8.1 k/uL (3.8-10.6)
[2020-08-20 15:09] LABS: African American GFR (CKD) 93.5 (60.0-200.0); Albumin 4.5 g/dL (3.80-4.90); Albumin/Globulin Ratio 2.05 (1.60-3.17); Anion Gap 9.5 mmol/L (4.00-12.00); BUN/Creat Ratio 23.75 Ratio (12.00-20.00); Carbon Dioxide 25.5 mmol/L (21.6-31.8); Chol/HDL Ratio 2.93; Globulin 2.2 g/dL (1.6-3.3); Non-African American GFR(CKD) 80.7 (60.0-200.0); Potassium 4.7 mmol/L (3.5-5.5); Total Bilirubin 0.6 mg/dL (0.2-1.2); Total Protein 6.7 g/dL (6.2-8.2)
[2020-08-20 15:16] LABS: T4, Free (Free Thyroxine) 0.9 ng/dL (0.80-1.80)
== END | disposition home or self-care (01) ==
LOC: LABWHC1 07:53
PROVIDERS: ATTEND Nurse Practitioner Women's Health
DX: Z13.21 Encounter for screening for nutritional disorder (principal); I10 Essential (primary) hypertension; E78.00 Pure hypercholesterolemia, unspecified; Z79.899 Other long term (current) drug therapy
CPT/HCPCS: 36415; 80053; 80061; 82306; 84439; 84443; 85025

== ENCOUNTER 2020-08-28 13:46 | Day surgery (SDC) | payer BC ==
[2020-08-26 11:54] VITALS: BMI 41.5
--- NOTE | 2020-08-27 18:21 | HP ---
HISTORY AND PHYSICAL DATE OF SURGERY: 08/28/2020 Vonda Haley is a 60-year-old patient seen with progressive left knee pain. Options for treatment were discussed. She elected to proceed with arthroscopy. Consent was obtained. PAST MEDICAL HISTORY: Hypertension, thi-nujwfys-zipjomfvk diabetes, hyperlipidemia. PAST SURGICAL HISTORY: Cholecystectomy, hysterectomy, bladder suspension surgery. DAILY MEDICATIONS: Atenolol, Januvia, Lipitor, metformin, omeprazole. ALLERGIES: FLAGYL. SOCIAL HISTORY: She denies tobacco use. PHYSICAL EVALUATION OF THE LEFT KNEE: Her range of motion is negative 3 to 115. Mild effusion. Tenderness along the medial and lateral joint lines. Positive medial Howie's. Positive lateral Howie's. Ligaments appear stable. Distal neurovascular exam is intact. IMAGING: Radiographs of the left knee revealed moderate osteoarthritic changes. Left knee MRI revealed an abnormal signal, lateral meniscus, partial ACL tear and osteoarthritic changes. IMPRESSION: 1. Internal derangement, left knee, with medial meniscal tear and partial ACL tear. 2. Left knee osteoarthritis. 3. Hypertension. 4. Hyperlipidemia. 5. Eqg-rmmjigr-wrmpwegnk diabetes. PLAN: Left knee arthroscopy with partial meniscectomy, partial synovectomy, debridement, partial ACL tear. MMODL / IJN: [id number] /
[~2020-08-28 13:46] MED LIST changes: +LIDOCAINE 1% (10MG/ML) FOR IV START INTRADERMA PRN; +MIDAZOLAM 2 MG/2 ML VIAL IV PRN
[2020-08-28] MEDS ORDERED: LACTATED RINGERS 1,000 ML IV ONE (14:03)
[2020-08-28 14:08] LABS: Glucose,Whole Blood 116 mg/dL (75-99)
[2020-08-28] MEDS ORDERED: LIDOCAINE 1% INJ 10MG/ML (20 ML MDV) ONE (14:46)
[2020-08-28] MEDS ORDERED: SUCCINYLCHOLINE CHLORIDE VIAL 200 MG/10 ML VIAL IV ONE (14:46)
[2020-08-28] MEDS ORDERED: MIDAZOLAM 2 MG/2 ML VIAL ONE (14:46)
[2020-08-28] MEDS ORDERED: fentaNYL (PF) 50 MCG/ML 2 ML AMP ONE (14:46)
[2020-08-28] MEDS ORDERED: PROPOFOL 10 MG/ML 20 ML VIAL IV ONE (14:46)
[2020-08-28] MEDS ORDERED: BUPIVACAINE (PF) 0.5% 30 ML VIAL SQ ONE (15:17)
[2020-08-28 15:43] LABS: Glucose,Whole Blood 120 mg/dL (75-99)
--- NOTE | 2020-08-28 15:43 | P.OP ---
Date of Procedure: 08/28/20 Preoperative Diagnosis: Internal derangement left knee Postoperative Diagnosis: 1. Tear medial meniscus left knee 2. Grade 4 chondromalacia medial femoral condyle left knee 3. Reactive synovitis medial, lateral and suprapatellar compartments left knee Procedure(s) Performed: 1. Arthroscopic partial medial meniscectomy left knee 2. Arthroscopic chondroplasty medial femoral condyle left knee 3. Arthroscopic partial synovectomy medial, lateral and suprapatellar compartments left knee Anesthesia: NKECHIA, local Surgeon: Nacho Narvaez Estimated Blood Loss (ml): 9 Pathology: none sent Condition: stable Disposition: PACU Indications for Procedure: 60-year-old patient seen with progressive left knee pain. After treatment options were discussed, she elected to proceed with arthroscopy. Operative Findings: See description of procedure Description of Procedure: Patient was taken to the operative suite. Patient underwent a general anesthetic by the department of anesthesia. Patient was given preoperative antibiotics. The left lower extremity was placed in a well-padded arthroscopic leg mohan. The left leg was prepped and draped in the normal sterile orthopedic fashion. A lateral parapatellar and suprapatellar incision was made. Trochars were inserted. Arthroscopy was initiated. Suprapatellar pouch revealed diffuse thick reactive synovitis. The patellofemoral joint appeared to articulate congruently. There was grade 2/3 chondromalacia of the patellofemoral joint with no osteochondral tears present. The scope was guided into the medial gutter. No loose bodies or plica were identified. The scope was then guided into the medial compartment. A medial parapatellar incision was made. Trocar inserted followed by probe. There was a complex tear involving the posterior horn of the medial meniscus. There were grade 4 chondromalacia changes of the medial femoral condyle and tibial plateau. There was a large area of exposed bone involving the medial femoral condyle and tibial plateau on the most medial aspect of the joint. There was thick reactive synovitis anteriorly. I performed a partial medial meniscectomy getting down to stable meniscal tissue. I performed a chondroplasty of the medial femoral condyle getting down to stable osteochondral tissue. I performed a partial synovectomy decompressing the reactive synovitis. The residual meniscus was stable there was good decompression of the synovitis and I again noted ajbc-hz-xxye arthritis involving the medial compartment. Scope and probe were then guided into the intercondylar notch. Cruciates were identified, probed and found to have some fraying of the ACL. That was debrided out. The residual ACL was stable. The scope and probe were then guided into lateral compartment. Lateral meniscus reveals some mild fraying along the mid body. There were grade 1/2 chondromalacia changes but no osteochondral tears. There was thick reactive synovitis anteriorly. I introduced a motorized shaver and performed a partial synovectomy. The shaver was removed. There was good decompression of the synovitis. The scope was in guided back into the suprapatellar compartment. Used a motorized shaver into the super patellar compartment. I debrided some piecemeal fragments of meniscus I encountered. I performed a partial synovectomy decompressing reactive synovitis. The shaver was removed. There was good decompression of the synovitis. I took one more look on the entire knee, no residual debris. Instruments were now removed from the joint. The joint was infiltrated with .25% Marcaine. Steri-Strips were applied to the portal sites. Sterile dressings were applied. The patient was placed into a ROHAN hose. No tourniquet was utilized. The patient was awakened, transferred to a bed and taken to recovery stable satisfactory condition.
[2020-08-28 15:45] VITALS: TEMP 96.9
[2020-08-28 15:55] VITALS: RESP 16
[2020-08-28] MEDS ORDERED: HYDROcodone/APAP 5-325MG 1 EACH TAB ONE (16:32)
[2020-08-28] MEDS ORDERED: HYDROcodone/APAP 5-325MG 1 EACH TAB PO ONE (16:35)
[2020-08-28 16:38] VITALS: BP 137/85; PULSE 64
== END 2020-08-28 17:10 | disposition home or self-care (01) ==
LOC: OR 13:46
PROVIDERS: ATTEND Orthopaedic Surgery
DX: M23.222 Derangement of posterior horn of medial meniscus due to old tear or injury, left knee (principal); M94.262 Chondromalacia, left knee; M65.862 Other synovitis and tenosynovitis, left lower leg; M17.12 Unilateral primary osteoarthritis, left knee; E11.9 Type 2 diabetes mellitus without complications; I10 Essential (primary) hypertension; E78.5 Hyperlipidemia, unspecified; G47.33 Obstructive sleep apnea (adult) (pediatric); F32.9 Major depressive disorder, single episode, unspecified; K21.9 Gastro-esophageal reflux disease without esophagitis; E66.01 Morbid (severe) obesity due to excess calories; Z88.1 Allergy status to other antibiotic agents; Z90.49 Acquired absence of other specified parts of digestive tract; Z90.710 Acquired absence of both cervix and uterus; Z98.890 Other specified postprocedural states; Z79.899 Other long term (current) drug therapy; Z79.84 Long term (current) use of oral hypoglycemic drugs; Z68.41 Body mass index [BMI] 40.0-44.9, adult; Z91.018 Allergy to other foods
CPT/HCPCS: 29881; J2250; J0330; J1100; J0690; J2405; J2001; J3010; J2704

== ENCOUNTER → 2020-11-05 | Outpatient (CLI) | payer BC ==
--- NOTE | 2020-11-07 11:09 | MM ---
Reason for exam: screening (asymptomatic). Last mammogram was performed 1 year and 2 months ago. History: Patient is postmenopausal and is nulliparous. Family history of breast cancer in 2 maternal aunts at age 45. Took hormonal contraceptives for 7 years beginning at age 31. Physical Findings: A clinical breast exam by your physician is recommended on an annual basis and results should be correlated with mammographic findings. MG Screening Mammo w CAD Bilateral CC, MLO, and XCCL view(s) were taken. Prior study comparison: September 13, 2019, bilateral MG screening mammo w CAD. August 11, 2018, bilateral MG screening mammo w CAD. The breast tissue is heterogeneously dense. This may lower the sensitivity of mammography. Scattered benign punctate calcifications on the right breast. No significant changes when compared with prior studies. ASSESSMENT: Negative, BI-RAD 1 RECOMMENDATION: Routine screening mammogram of both breasts in 1 year.
== END | disposition home or self-care (01) ==
LOC: RADMAMWWP 13:22
PROVIDERS: ATTEND Family Medicine
DX: Z12.31 Encounter for screening mammogram for malignant neoplasm of breast (principal); Z80.3 Family history of malignant neoplasm of breast
CPT/HCPCS: 77067

== ENCOUNTER → 2021-01-20 | Outpatient (CLI) | payer BC ==
[2021-01-20 07:56] LABS: Basophils % (A) 0 %; Eosinophils # (A) 0.1 k/uL (0-0.7); Eosinophils % (A) 2 %; HCT 32.6 % (34.0-46.0); HGB 10.5 gm/dL (11.4-16.0); Lymphocytes # (A) 2.2 k/uL (1.0-4.8); Lymphocytes % (A) 33 %; MCH 29.6 pg (25.0-35.0); MCHC 32.1 g/dL (31.0-37.0); MCV 92.2 fL (80.0-100.0); Mean Platelet Volume 6.8; Monocytes # (A) 0.3 k/uL (0-1.0); Monocytes % (A) 5 %; Neutrophils # (A) 3.9 k/uL (1.3-7.7); Neutrophils % (A) 59 %; Platelet Count 243 k/uL (150-450); RBC 3.54 m/uL (3.80-5.40); RDW 13.9 % (11.5-15.5); WBC 6.6 k/uL (3.8-10.6)
[2021-01-20 08:01] LABS: INR 0.9 (<1.2); Prothrombin Time 10.2 sec (9.0-12.0)
[2021-01-20 08:04] LABS: Potassium 4.8 mmol/L (3.5-5.1)
== END | disposition home or self-care (01) ==
LOC: LABPAT 06:53
PROVIDERS: ATTEND Orthopaedic Surgery
DX: Z01.812 Encounter for preprocedural laboratory examination (principal); E78.5 Hyperlipidemia, unspecified; I10 Essential (primary) hypertension; E11.9 Type 2 diabetes mellitus without complications; Z79.899 Other long term (current) drug therapy
CPT/HCPCS: 36415; 80051; 85025; 85610; 87070

== ENCOUNTER 2021-02-09 10:40 | Day surgery (SDC) | payer BC ==
[2021-02-03 15:21] VITALS: BMI 42.2
--- NOTE | 2021-02-08 12:05 | HP ---
HISTORY AND PHYSICAL REASON FOR ADMISSION: Surgery scheduled for 02/09/2021 HISTORY OF PRESENT ILLNESS: Vonda Haley is a 60-year-old patient seen with symptomatic left knee osteoarthritis. We discussed options for treatment. She elected to proceed with left total knee arthroplasty. Consent regarding the procedure was obtained. Medical clearance was provided by Dr. Dunlap. PAST MEDICAL HISTORY: Hypertension, hyperlipidemia, rvs-tdavqkz-iaepjxxuh diabetes, gastroesophageal reflux disease. PAST SURGICAL HISTORY: Cholecystectomy, hysterectomy, knee arthroscopy, bladder suspension surgery. MEDICATIONS: Atenolol, Januvia, Lipitor, metformin, omeprazole, Trulicity. ALLERGIES: FLAGYL. SOCIAL HISTORY: She denies tobacco use. PHYSICAL EXAMINATION: Evaluation of the left knee: Range of motion is -2/3-100. Mild effusion. Tenderness medial joint line. Crepitus medial patellofemoral compartments with range of motion. Pain with patellofemoral compression. Ligaments are stable. Hip rotation is without pain. Her distal neurovascular exam is intact. RADIOGRAPHS: Radiographs of the left knee reveal severe osteoarthritic changes. IMPRESSION: 1. Left knee osteoarthritis. 2. Hypertension. 3. Hyperlipidemia. 4. Insulin-dependent diabetes. PLAN: Left total knee arthroplasty. Surgery 02/09/2021. MMODL / IJN: [id number] /
[~2021-02-09 10:40] MED LIST changes: +ACETAMINOPHEN TAB 500 MG TAB PO PRN; -HYDROmorphone 0.5 MG/0.5 ML SYRINGE IVP PRN; -LIDOCAINE 1% (10MG/ML) FOR IV START INTRADERMA PRN; +MELOXICAM 7.5 MG TAB PO PRN; -MIDAZOLAM 2 MG/2 ML VIAL IV PRN; -ONDANSETRON 4 MG/2 ML VIAL IVP ONE; +ROPIVACAINE/EPI/CLONIDINE/KET 50 ML SYRINGE MISCELLANE PRN; +TRANEXAMIC ACID 1,000 MG in SODIUM CHLORIDE 0.9% 100 ML IVPB PRN
[2021-02-09 11:42] VITALS: RESP 16
[2021-02-09 11:55] LABS: Glucose,Whole Blood 102 mg/dL (75-99)
[2021-02-09] MEDS: ONDANSETRON 4 MG/2 ML VIAL IVP ONE ×2 (11:55→16:27)
[2021-02-09] MEDS ORDERED: MIDAZOLAM 2 MG/2 ML VIAL IVP ONE (12:05)
[2021-02-09] MEDS ORDERED: fentaNYL (PF) 50 MCG/ML 2 ML AMP IVP ONE (12:05)
[2021-02-09] MEDS ORDERED: LIDOCAINE 1% INJ 10MG/ML (20 ML MDV) ONE (12:41)
[2021-02-09] MEDS ORDERED: fentaNYL (PF) 50 MCG/ML 2 ML AMP ONE (12:41)
[2021-02-09] MEDS ORDERED: PROPOFOL 10 MG/ML 20 ML VIAL IV ONE (12:41)
[2021-02-09] MEDS ORDERED: SODIUM CHLORIDE 0.9% 100 ML BAG ONE (12:41)
[2021-02-09] MEDS ORDERED: SODIUM CHLORIDE 0.9% (PF) 10 ML VIAL ONE (12:41)
[2021-02-09] MEDS ORDERED: TRANEXAMIC ACID 1,000 MG/10 ML VIAL ONE (12:41)
[2021-02-09] MEDS ORDERED: SUCCINYLCHOLINE CHLORIDE VIAL 200 MG/10 ML VIAL IV ONE (12:41)
[2021-02-09] MEDS ORDERED: HYDROmorphone (PF) 1 MG/ML ONE (12:41)
[2021-02-09] MEDS ORDERED: ROPIVACAINE 5 MG/ML 30 ML VIAL ONE (12:41)
[2021-02-09] MEDS ORDERED: MIDAZOLAM 2 MG/2 ML VIAL ONE (12:41)
[2021-02-09] MEDS ORDERED: ceFAZolin 1,000 MG in SODIUM CHLORIDE 0.9% 1,000 ML IRRIGATION ONE (12:45)
[2021-02-09] MEDS ORDERED: LACTATED RINGERS 1,000 ML IV ONE ×2 (13:42→14:49)
[2021-02-09] MEDS ORDERED: HYDROcodone/APAP 5-325MG 1 EACH TAB PO PRN ×2 (14:49)
[2021-02-09] MEDS ORDERED: NALOXONE 0.4 MG/ML 1 ML VIAL IV PRN (14:49)
[2021-02-09] MEDS ORDERED: ONDANSETRON 4 MG/2 ML VIAL IVP PRN (14:49)
[2021-02-09] MEDS ORDERED: HYDROmorphone 0.5 MG/0.5 ML SYRINGE IVP PRN (14:49)
[2021-02-09] MEDS ORDERED: HYDROmorphone 1 MG/ML 1 ML SYRINGE IVP PRN (14:49)
[2021-02-09] MEDS ORDERED: HYDROmorphone 0.2 MG/1 ML SYRINGE IVP PRN (14:49)
--- NOTE | 2021-02-09 14:49 | P.OP ---
Date of Procedure: 02/09/21 Preoperative Diagnosis: Left knee osteoarthritis Postoperative Diagnosis: Left knee osteoarthritis Procedure(s) Performed: Left total knee arthroplasty Implants: 1. Depuy attune size 6 narrow left cruciate retaining cemented femur 2. Depuy attune size 6 cemented fixed bearing tibial baseplate 3. Depuy attune size 6 fixed bearing cruciate retaining 10 mm polyethylene tibial insert 4. Depuy attune 35 mm all polyethylene cemented patella Anesthesia: GETA, regional (Adductor canal catheter, I pack block) Surgeon: Nacho Narvaez Predatory Animal Exterminator #1: Alfonso Rowland Estimated Blood Loss (ml): 50 Pathology: other (Bone) Condition: stable Disposition: PACU Indications for Procedure: 60-year-old patient seen with symptomatic left knee osteoarthritis. After treatment options were discussed, she elected to proceed with total knee arthroplasty Operative Findings: See description of procedure Description of Procedure: Patient was taken to the operative suite after having an adductor canal catheter placed by the department of anesthesia. Patient underwent a general anesthetic by the department of anesthesia. Patient was given preoperative IV intake antibiotics and TXA. A well-padded tourniquet was placed about the left lower extremity. The lower extremity was then prepped and draped in the normal sterile orthopedic fashion. The extremity was elevated, a tourniquet was insufflated to 300. A standard anterior incision was made sharply through skin. Dissection was taken down through the subcutaneous soft tissues down to the extensor mechanism. A medial arthrotomy was performed, patella was everted and knee was flexed. There was advanced osteoarthritis noted. I introduced my distal intramedullary femoral drill. I then introduced the distal femoral cutting jig. Alfonso BASSETT secured the cutting jig with 2 pins. I held retractors in position while Syd BASSETT performed the distal femoral resection through the guide area we now removed her distal femoral cutting guide. We now placed our 4-in-1 femoral cutting block and positioned and it was secured with 2 pins by Alfonso BASSETT while I held the block in position. The distal femoral finishing was now completed. A proximal tibial cutting guide was positioned. I held the guide in the appropriate position with both hands well Alfonso BASSETT inserted stabilizing pins into the guide. Proximal tibial cut was made. We now placed a trial femoral component into position, along with an appropriate size tibial tray and insert. We now took the knee through range of motion and had full extension good flexion and good overall soft tissue balance noted. The patella was everted and stabilized with 2 towel clips held by Alfonso BASSETT while I performed a flush with patellar quad tendon utilizing a fresh sawblade. We templated the patella, appropriate drill holes were made. An appropriate trial patella was positioned, knee was taken through full range of motion with the patella tracking very nicely. The trial patella was removed. Drill holes were made through the femoral component. All trial components were removed after marking off the appropriate rotation of the tibia. Retractors were now positioned along the proximal tibia. An appropriate keel punch was made with the appropriate size tibial guide by myself on Alfonso BASSETT assisted by holding retractors. At this point appropriate size implants were chosen and opened. The joint was irrigated copiously with pulse lavage mechanical irrigation. The posterior capsule was infiltrated with local analgesic. The wound was irrigated with pulse lavage mechanical irrigation. We mixed antibiotic methylmethacrylate. We placed the knee into flexion. We placed multiple retractors assisted by Alfonso BASSETT to expose the proximal tibia. Once the methyl methacrylate was ready, the tibial component was cemented into place removing any excess methylmethacrylate form by both myself and Alfonso BASSETT. The femoral component was cemented into place removing the removing any excess methylmethacrylate performed by both myself and Alfonso BASSETT. We then inserted the appropriate size polyethylene tibial insert. We made sure that it was locked into position. We took the knee into full extension, and then back in a flexion making sure we had removed any excess methylmethacrylate. The patellar component was then cemented down and secured with clamp. Excess methylmethacrylate removed. We kept the knee in full extension, patellar clamp in position until methylmethacrylate had hardened. Once it had hardened the pat ellar clamp was removed. The knee was taken through full range of motion. The patella tracked nicely. There was good soft tissue balancing. The tourniquet was now released. Additional hemostasis was achieved via electrocautery. A second gram of TXA was given. The wound again was irrigated with pulse lavage mechanical irrigation. The superficial soft tissues were infiltrated local analgesic. The extensor mechanism was repaired with Ethibond. We checked the repair with range of motion and it was stable. The subcutaneous soft tissues were repaired with Vicryl in layers. The skin was approximated with pernio/Dermabond. Sterile dressings were applied followed by loose web roll and Adrian bandage. The patient was transferred to a bed, and taken to recovery in stable and satisfactory condition. Alfonso BASSETT assisted with this complex procedure.
[2021-02-09 15:09] VITALS: TEMP 97.6
[2021-02-09] MEDS: HYDROmorphone 0.5 MG/0.5 ML SYRINGE IVP PRN ×2 (15:10→15:15)
--- NOTE | 2021-02-09 15:29 | P.ANPRN ---
Procedure Note - Anesthesia - Nerve Block Performed Left Adductor Canal Infusion Time Out Performed: Yes (1203) Date of Procedure: 02/09/21 Procedure Start Time: 12:05 Procedure Stop Time: 12:12 Location of Patient: PreOp Indication: Acute Post-Operative Pain, Requested by Surgeon Specifically requested for management of pain by DrCelina: Nacho Narvaez Sedation Type: Sedate with meaningful contact maintained Preparation: Sterile Prep Position: Supine Catheter Depth at Skin (cm): 8 Catheter: Indwelling Needle Types: Pajunk Needle Gauge: 21 Ultrasound used to visualize needle placement: Yes Ultrasound used to observe medication spread: Yes Injectate: 0.5% Ropivacaine (see comment for volume) (15cc) Blood Aspirated: No Pain Paresthesia on Injection Noted: No Resistance on Injection: Normal Image Stored and Saved: Yes Events: Uneventful and Well Tolerated Left Popliteal Single Time Out Performed: Yes (1203) Date of Procedure: 02/09/21 Procedure Start Time: 12:13 Procedure Stop Time: 12:16 Location of Patient: PreOp Indication: Acute Post-Operative Pain, Requested by Surgeon Specifically requested for management of pain by DrCelina: Nacho Narvaez Sedation Type: Sedate with meaningful contact maintained Preparation: Sterile Prep Position: Supine Catheter: None Needle Types: Pajunk Needle Gauge: 21 Ultrasound used to visualize needle placement: Yes Ultrasound used to observe medication spread: Yes Injectate: 0.5% Ropivacaine (see comment for volume) (15cc) Blood Aspirated: No Pain Paresthesia on Injection Noted: No Resistance on Injection: Normal Image Stored and Saved: Yes Events: Uneventful and Well Tolerated
[2021-02-09] MEDS ORDERED: ONDANSETRON 4 MG/2 ML VIAL IVP ONE (15:31)
[2021-02-09] MEDS ORDERED: ROPIVACAINE 0.2%-NS ON-Q PUMP 2 MG/ML EACH MISCELLANE ONE (15:32)
--- NOTE | 2021-02-09 15:49 | XR ---
EXAMINATION TYPE: XR knee limited LT DATE OF EXAM: 02/09/2021 CLINICAL HISTORY: Left knee pain and arthritis status post total knee replacement. TECHNIQUE: Portable AP and crosstable lateral views of the left knee are obtained immediately postop eratively. COMPARISON: Outside left knee x-ray December 09, 2020 FINDINGS: Metallic hardware from total left knee arthroplasty is seen and appears satisfactory in al ignment and position. [place] osseous structures are somewhat demineralized. There is evidence of rec ent surgery with diffuse subcutaneous gas and some overlying superior vertical skin reginaldo are noted . IMPRESSION: METALLIC HARDWARE FROM TOTAL LEFT KNEE ARTHROPLASTY IS SATISFACTORY IN ALIGNMENT.
[2021-02-09 18:56] VITALS: BP 122/75; PULSE 88
== END 2021-02-09 19:15 | disposition home health service (06) ==
LOC: OR 10:40
PROVIDERS: ATTEND Orthopaedic Surgery
DX: M17.12 Unilateral primary osteoarthritis, left knee (principal); E78.00 Pure hypercholesterolemia, unspecified; G47.33 Obstructive sleep apnea (adult) (pediatric); Z87.442 Personal history of urinary calculi; K21.9 Gastro-esophageal reflux disease without esophagitis; Z79.84 Long term (current) use of oral hypoglycemic drugs; Z90.49 Acquired absence of other specified parts of digestive tract; Z98.890 Other specified postprocedural states; Z90.710 Acquired absence of both cervix and uterus; Z98.51 Tubal ligation status; Z79.891 Long term (current) use of opiate analgesic; Z79.899 Other long term (current) drug therapy; Z88.1 Allergy status to other antibiotic agents; Z88.5 Allergy status to narcotic agent; Z88.8 Allergy status to other drugs, medicaments and biological substances
CPT/HCPCS: 97110; 97161; 64999; 64448; 76942; 88300; 73560; 27447; C1776; C1713; J2250; J0330; J1100; J0690 ×2; J2405; J2001; J3010; J1170 ×2; J2795 ×2; J2704

== ENCOUNTER → 2021-09-02 | Outpatient (CLI) | payer BC ==
[2021-09-02 12:26] LABS: Basophils # (A) 0.05 X 10*3/uL (0.00-0.10); Basophils % (A) 0.7 %; Eosinophils # (A) 0.13 X 10*3/uL (0.04-0.35); Eosinophils % (A) 1.7 %; HCT 32.9 % (37.2-46.3); HGB 10.1 g/dL (12.0-15.0); Lymphocytes # (A) 2.12 X 10*3/uL (0.90-5.00); Lymphocytes % (A) 27.7 %; MCH 28.9 pg (27.0-32.0); MCHC 30.7 g/dL (32.0-37.0); MCV 94.3 fL (80.0-97.0); Mean Platelet Volume 10.3 fL (9.5-12.2); Monocytes # (A) 0.51 X 10*3/uL (0.20-1.00); Monocytes % (A) 6.7 %; Neutrophils # (A) 4.82 X 10*3/uL (1.80-7.70); Neutrophils % (A) 62.8 %; Platelet Count 279 X 10*3/uL (140-440); RBC 3.49 X 10*6/uL (4.10-5.20); RDW 13.8 % (11.5-14.5); WBC 7.66 X 10*3/uL (4.50-10.00)
[2021-09-02 13:07] LABS: ALT 20 U/L (8-44); AST 23 U/L (13-35); African American GFR (CKD) 79.2 (60.0-200.0); Albumin 4.4 g/dL (3.8-4.9); Albumin/Globulin Ratio 1.67 (1.60-3.17); Alkaline Phosphatase 116 U/L (41-126); Blood Urea Nitrogen 16.8 mg/dL (9.0-27.0); Calcium 9.7 mg/dL (8.7-10.3); Carbon Dioxide 22.8 mmol/L (20.0-27.5); Chloride 104 mmol/L (96-109); Chol/HDL Ratio 3.48 Ratio; Globulin 2.7 g/dL (1.6-3.3); Glucose 122 mg/dL (70-110); LDL Cholesterol,Calculated 75.2 mg/dL (0.0-131.0); Non-African American GFR(CKD) 68.3 (60.0-200.0); Potassium 4.6 mmol/L (3.5-5.5); Sodium 140 mmol/L (135-145); Total Protein 7.1 g/dL (6.2-8.2)
== END | disposition home or self-care (01) ==
LOC: LABWHC1 07:08
PROVIDERS: ATTEND Family Medicine
DX: Z00.00 Encounter for general adult medical examination without abnormal findings (principal); E78.00 Pure hypercholesterolemia, unspecified; I10 Essential (primary) hypertension; E11.9 Type 2 diabetes mellitus without complications; E55.9 Vitamin D deficiency, unspecified; F33.1 Major depressive disorder, recurrent, moderate; E66.01 Morbid (severe) obesity due to excess calories; Z68.41 Body mass index [BMI] 40.0-44.9, adult
CPT/HCPCS: 36415; 80053; 80061; 82306; 83036; 84439; 84443; 85025

== ENCOUNTER → 2021-09-08 | Outpatient (CLI) | payer BC ==
--- NOTE | 2021-09-08 16:17 | CONS ---
CONSULTATION DATE OF SERVICE: 09/08/2021 This 61-year-old lady has [facility] for obstructive sleep apnea- hypopnea. HISTORY OF PRESENT ILLNESS/SLEEP-WAKE EVALUATION: The last time I saw this patient was in 2013. She was on treatment with BiPAP 16/12 cm of water. The patient was diagnosed with obstructive sleep apnea in 2009; obstructive sleep apnea- hypopnea syndrome in severe range, apnea-hypopnea index 65.7 at that time. At present she continues to use her BiPAP unit every night. At present her BiPAP unit is not working properly. Her sleep schedule is from 5 p.m. until 4 a.m. on weekdays and from 6 p.m. until 6 a.m. on weekends. She does have problems with falling asleep, although no TV in the bedroom. She wakes up multiple times from sleep and has 2 episodes of nocturia. No history of hypnagogic hallucinations, sleep paralysis or cataplexy. [place] Sleepiness Scale is 2. PAST MEDICAL HISTORY: Positive for periodic limb movements, hypertension, depression, diabetes mellitus, acid reflux. PAST SURGICAL HISTORY: Total left knee replacement, partial hysterectomy, bladder suspension. MEDICATIONS: 1. Atenolol 50 mg once a day. 2. Januvia 100 mg once a day. 3. Metformin 1000 mg once a day. 4. Trulicity 1.5 mg once a week. 5. Atorvastatin 40 mg once a day. 6. Prozac 20 mg once a day. 7. Omeprazole 40 mg once a day. SOCIAL HISTORY: Negative for smoking. Alcohol consumption occasional. FAMILY HISTORY: Positive for hyperlipidemia, heart problems. PHYSICAL EXAMINATION: GENERAL APPEARANCE: Pleasant lady without distress. VITAL SIGNS: BP 128/64, HR 83, RR 15, height 5 feet 3-3/4 inches, weight 259.4 pounds, body mass index 44.8, temperature 97.1, oxygen saturation at room air 97%. HEENT: PERRLA, EOMI, evaluation of oropharynx showed tongue protrudes midline. Low position of soft palate. NECK: Supple, no JVD. Thyroid is not palpable. Neck measures 18 inches in circumference. LUNGS: Clear to percussion and to auscultation. Good air exchange. No wheezing or rhonchi. HEART: S1, S2 regular. No murmurs, gallops, or rubs. ABDOMEN: Obese. EXTREMITIES: No clubbing or cyanosis. HEALTH MANAGEMENT CONSULTANT: Awake, alert, and oriented X3. Cranial nerves 2 to 7 intact. There is no fasciculation or atrophy. noted. No focal deficits observed. IMPRESSION: 1. History of snoring, multiple awakenings from sleep, low position of soft palate, wide neck, 18 inches in circumference, history of obstructive sleep apnea-hypopnea syndrome; obstructive sleep apnea-hypopnea syndrome. Patient is on treatment with BiPAP but has some awakenings from sleep while on therapy. 2. Obesity. Body mass index 44.8. 3. History of periodic limb movements. 4. Hypertension. 5. History of depression. 6. Status post partial hysterectomy. 7. Status post bladder suspension. 8. Status post total left knee replacement. PLAN: 1. Home sleep apnea test for reevaluation of patient's breathing at the present time. 2. Patient will need to repeat titration. She is at present on treatment with BiPAP. 3. After testing, patient should get new PAP equipment with a Mirage FX standard nasal mask. 4. Losing weight. 5. No driving if feeling any sleepiness. Thank you very much for allowing me to participate in the management of your patient. Sincerely, Perez Montes MD, PhD, FAASM Diplomat of [employer] Sleep Medicine Board of [employer] Designer of [facility] [place] MMBELINDAL / COURTNEYN: [id number] /
== END ==
LOC: SLEEP 14:05
PROVIDERS: ATTEND Internal Medicine
DX: G47.33 Obstructive sleep apnea (adult) (pediatric) (principal); E66.9 Obesity, unspecified; I10 Essential (primary) hypertension; F32.A Depression, unspecified; Z96.652 Presence of left artificial knee joint; Z90.711 Acquired absence of uterus with remaining cervical stump; Z87.448 Personal history of other diseases of urinary system; Z68.41 Body mass index [BMI] 40.0-44.9, adult; Z79.899 Other long term (current) drug therapy; Z88.1 Allergy status to other antibiotic agents; Z91.018 Allergy to other foods; Z91.048 Other nonmedicinal substance allergy status
CPT/HCPCS: 99211

== ENCOUNTER 2021-09-17 06:16 | Day surgery (SDC) | payer BC ==
[2021-09-14 14:44] VITALS: BMI 41.5
[~2021-09-17 06:16] MED LIST changes: -ACETAMINOPHEN TAB 500 MG TAB PO PRN; -DEXAMETHASONE SOD PHOSPHATE 4 MG/ML 1 ML VIAL IV ONE; -MELOXICAM 7.5 MG TAB PO PRN; -ROPIVACAINE/EPI/CLONIDINE/KET 50 ML SYRINGE MISCELLANE PRN; -TRANEXAMIC ACID 1,000 MG in SODIUM CHLORIDE 0.9% 100 ML IVPB PRN
[2021-09-17 06:47] VITALS: TEMP 97.5
[2021-09-17 07:00] LABS: Glucose,Whole Blood 139 mg/dL (75-99)
[2021-09-17] MEDS ORDERED: PROPOFOL 10 MG/ML 20 ML VIAL IV ONE (07:20)
--- NOTE | 2021-09-17 07:39 | P.PCN ---
Date of Procedure: 09/17/21 Procedure(s) Performed: BRIEF HISTORY: Patient is a 61-year-old pleasant white female scheduled for an elective colonoscopy as a part of screening for colon cancer and family history of colon cancer diagnosed in her father at age 60. PROCEDURE PERFORMED: Colonoscopy with snare polypectomy. PREOPERATIVE DIAGNOSIS: Screening for colon cancer and family history of colon cancer. IV sedation per Anesthesia. PROCEDURE: After informed consent was obtained, the patient, was brought into the endoscopy unit. IV sedation was administered by Anesthesia under continuous monitoring. Digital rectal examination was normal. Initially the Olympus CF-160 flexible video colonoscope was then inserted in the rectum, gradually advanced into the cecum without any difficulty. Careful examination was performed as the scope was gradually being withdrawn. Ileocecal valve and the appendiceal orifice were visualized and appeared normal. Prep was excellent. Mucosa of the cecum, ascending colon, appeared normal. In the proximal transverse colon there was a 7-8 mm flat polyp that was removed by snare polypectomy. The transverse colon, descending colon, sigmoid colon, and rectum appeared normal. In the proximal rectum there was a 3 mm polyp that was removed by snare polypectomy. Retroflexion was performed in the rectum and no lesions were seen. The patient tolerated the procedure well. IMPRESSION: 7-8 mm flat transverse colon polyp status post polypectomy 3 mm proximal rectal polyp status post snare polypectomy RECOMMENDATIONS: Findings of this examination were discussed with the patient as well as a family. She was advised to follow with the biopsy doesn't have a repeat colonoscopy in 5 years from now because of family history of colon cancer.
[2021-09-17 08:02] VITALS: BP 129/78; PULSE 70; RESP 16
== END 2021-09-17 08:22 | disposition home or self-care (01) ==
LOC: ORWHC2ENDO 06:16
PROVIDERS: ATTEND Internal Medicine Gastroenterology
DX: Z12.11 Encounter for screening for malignant neoplasm of colon (principal); Z80.0 Family history of malignant neoplasm of digestive organs; K63.5 Polyp of colon; K62.1 Rectal polyp; K21.9 Gastro-esophageal reflux disease without esophagitis; I10 Essential (primary) hypertension; E78.5 Hyperlipidemia, unspecified; G47.33 Obstructive sleep apnea (adult) (pediatric); Z79.899 Other long term (current) drug therapy; Z79.84 Long term (current) use of oral hypoglycemic drugs; Z88.1 Allergy status to other antibiotic agents; Z91.09 Other allergy status, other than to drugs and biological substances
CPT/HCPCS: 88305; 45385; J2704

== ENCOUNTER → 2021-09-27 | Outpatient (CLI) | payer BC | END | disposition home or self-care (01) | LOC: LABWHC1 10:38 | PROVIDERS: ATTEND Emergency Medicine | DX: U07.1 COVID-19 (principal) | CPT/HCPCS: 87635 ==

== ENCOUNTER 2021-10-06 15:26 | Emergency (ER) | payer BC ==
[2021-10-06] MEDS ORDERED: SODIUM CHLORIDE 0.9% 50 ML IVPB ONE (17:45)
--- NOTE | 2021-10-06 17:57 | ED ---
General Adult HPI - General Chief complaint: Upper Respiratory Infection Stated complaint: covid+, wants infusion Time Seen by Provider: 10/06/21 17:07 Source: patient Mode of arrival: ambulatory Limitations: no limitations - History of Present Illness Initial comments: 61-year-old female with a past medical history of diabetes mellitus, hyperlipidemia, hypertension, renal disease presents to the emergency room for a chief complaint of antibody infusion. Patient states that she is covid positive as of 10 days ago. Patient states she tested positive here at this hospital. Patient states she has had a cough. Minimal shortness of breath. No chest pain. Fevers on and off.Patient has no other complaints at this time including shortness of breath, chest pain, abdominal pain, nausea or vomiting, headache, or visual changes. - Related Data Home Medications Medication Instructions Recorded Confirmed Atorvastatin [Lipitor] 40 mg PO DAILY 12/20/16 09/17/21 FLUoxetine HCL [PROzac] 20 mg PO QAM 12/20/16 09/17/21 Omeprazole [PriLOSEC] 40 mg PO QAM 12/20/16 09/17/21 metFORMIN HCL [Glucophage] 1,000 mg PO BID 12/20/16 09/17/21 sitaGLIPtin [Januvia] 100 mg PO DAILY 12/20/16 09/17/21 Multivitamins, Thera [Multivitamin 1 tab PO DAILY 07/29/20 09/17/21 (formulary)] Dulaglutide [Trulicity] 1.5 mg SQ SA 10/06/21 10/06/21 atenoloL [Tenormin] 25 mg PO BID 10/06/21 10/06/21 Previous Rx's Medication Instructions Recorded Dexamethasone [Decadron] 6 mg PO DAILY #6 tablet 10/06/21 Allergies Allergy/AdvReac Type Severity Reaction Status Date / Time bacitracin Allergy Rash/Hives/ Verified 10/06/21 18:16 [From Triple Antibiotic] blisters [place] And Derivatives Allergy Rash/Hives Verified 10/06/21 18:16 [[place]] metronidazole [From Flagyl] Allergy Rash/Hives Verified 10/06/21 18:16 neomycin Allergy Rash/Hives/ Verified 10/06/21 18:16 [From Triple Antibiotic] blisters polymyxin B Allergy Rash/Hives/ Verified 10/06/21 18:16 [From Triple Antibiotic] blisters adhesive AdvReac Rash/Hives Verified 10/06/21 18:16 Review of Systems ROS Statement: Those systems with pertinent positive or pertinent negative responses have been documented in the HPI. ROS Other: All systems not noted in ROS Statement are negative. Past Medical History Past Medical History: Diabetes Mellitus, GERD/Reflux, Hyperlipidemia, Hypertension, Renal Disease, Sleep Apnea/CPAP/BIPAP Additional Past Medical History / Comment(s): hx of kidney stones, hx sinus problems. History of Any Multi-Drug Resistant Organisms: MRSA Date of last positivie culture/infection: 2007 MDRO Source:: buttock Past Surgical History: Bladder Surgery, Cholecystectomy, Heart Catheterization, Hysterectomy, Orthopedic Surgery, Tubal Ligation Additional Past Surgical History / Comment(s): 2013 cardiac cath, EGD/colonoscopy, open cholecystectomy, MYOMECTOMY, dermoid tumor removed from abdomen, R foot hammer toe, I&D perirectal abscess, anal fistula repair, monarc procedure. Past Anesthesia/Blood Transfusion Reactions: No Reported Reaction Additional Past Anesthesia/Blood Transfusion Reaction / Comment(s): no hx blood transfusion Past Psychological History: No Psychological Hx Reported Smoking Status: Never smoker Past Alcohol Use History: None Reported Past Drug Use History: None Reported - Past Family History Father Family Medical History: Cancer Additional Family Medical History / Comment(s): Father from COLON cancer in his 60's. Mother Family Medical History: Coronary Artery Disease (CAD), Diabetes Mellitus, Liver Disease, Renal Disease General Exam Limitations: no limitations General appearance: alert, in no apparent distress Head exam: Present: atraumatic Eye exam: Present: normal appearance, PERRL, EOMI. Absent: scleral icterus, conjunctival injection ENT exam: Present: normal exam, mucous membranes moist Neck exam: Present: normal inspection, full ROM. Absent: tenderness Respiratory exam: Present: normal lung sounds bilaterally. Absent: respiratory distress, wheezes Cardiovascular Exam: Present: regular rate, normal rhythm, normal heart sounds GI/Abdominal exam: Present: soft, normal bowel sounds. Absent: distended, tenderness Neurological exam: Present: alert Course Vital Signs 10/06/21 10/06/21 16:58 18:21 Temperature 98.2 F 98.4 F Pulse Rate 90 Pulse Rate [ 79 Pulse Oximetery ] Respiratory 20 18 Rate Blood Pressure 121/72 Blood Pressure 129/76 [Left Arm] O2 Sat by Pulse 94 L 94 L Oximetry Medical Decision Making - Medical Decision Making Vitals are stable. Patient is 94% on room air.Chest x-ray was obtained which did show a patchy pneumonia. Patient was given Decadron for Covid pneumonia. Patient was given antibody infusion as this is what she was sent in by her doctor for. At this time she is stable for outpatient follow-up. However due discussed return parameters. She'll return here for any worsening symptoms. Disposition Clinical Impression: COVID-19 Disposition: HOME SELF-CARE Condition: Good Instructions (If sedation given, give patient instructions): Coronavirus Disease 2019 (COVID-19) Additional Instructions: Take steroid as directed. Follow-up with your doctor. Return to the emergency room for any worsening symptoms. Prescriptions: Dexamethasone [Decadron] 6 mg PO DAILY #6 tablet Is patient prescribed a controlled substance at d/c from ED?: No Referrals: Skip Dunlap MD [Primary Care Provider] - 1-2 days Time of Disposition: 19:00
[2021-10-06] MEDS ORDERED: BAMLANIVIMAB (EUA) 700 MG, ETESEVIMAB (EUA) 1,400 MG in SODIUM CHLORIDE 0.9% 100 ML IVPB ONE (18:00)
[2021-10-06 18:22] VITALS: RESP 18
[2021-10-06 18:42] VITALS: TEMP 98.4
--- NOTE | 2021-10-06 18:51 | XR ---
EXAMINATION TYPE: XR chest 2V DATE OF EXAM: 10/06/2021 COMPARISON: 12/20/2016 HISTORY: Cough TECHNIQUE: 2 views FINDINGS: There is some patchy interstitial and airspace infiltrate in the right upper lobe and right lower lobe. Left lung is fairly clear. Heart size is normal. There are no hilar masses. There is no heart failure. IMPRESSION: There is patchy right-sided pneumonia. Normal heart. Pneumonia appears new compared to ol d exam.
[2021-10-06] MEDS ORDERED: DEXAMETHASONE SOD PHOSPHATE 10 MG/ML 1 ML VIAL IVP STA (18:59)
[2021-10-06 19:40] VITALS: BP 117/72; PULSE 84
== END 2021-10-06 19:57 | disposition home or self-care (01) ==
LOC: EC 15:26
DX: U07.1 COVID-19 (principal); E11.9 Type 2 diabetes mellitus without complications; I10 Essential (primary) hypertension; E78.5 Hyperlipidemia, unspecified; K21.9 Gastro-esophageal reflux disease without esophagitis; Z79.84 Long term (current) use of oral hypoglycemic drugs; Z79.899 Other long term (current) drug therapy
CPT/HCPCS: 71046; 99283; 96374; J1100; J3490

== ENCOUNTER → 2021-11-19 | Outpatient (CLI) | payer BC ==
--- NOTE | 2021-11-20 12:41 | MM ---
Reason for exam: screening (asymptomatic). Last mammogram was performed 1 year ago. History: Patient is postmenopausal and is nulliparous. Family history of breast cancer in 2 maternal aunts at age 45. Took hormonal contraceptives for 7 years beginning at age 31. Physical Findings: A clinical breast exam by your physician is recommended on an annual basis and results should be correlated with mammographic findings. MG Screening Mammo w CAD Bilateral CC, MLO, and XCCL view(s) were taken. Prior study comparison: November 05, 2020, bilateral MG screening mammo w CAD. September 13, 2019, bilateral MG screening mammo w CAD. The breast tissue is heterogeneously dense. This may lower the sensitivity of mammography. Stable benign calcifications. Focal asymmetry upper outer left breast is stable since 06/30/16. ASSESSMENT: Benign, BI-RAD 2 RECOMMENDATION: Routine screening mammogram of both breasts in 1 year.
== END | disposition home or self-care (01) ==
LOC: RADMAMWWP 13:37
PROVIDERS: ATTEND Family Medicine
DX: Z12.31 Encounter for screening mammogram for malignant neoplasm of breast (principal); Z78.0 Asymptomatic menopausal state; Z80.3 Family history of malignant neoplasm of breast
CPT/HCPCS: 77067

== ENCOUNTER → 2021-12-02 | Outpatient (CLI) | payer BC | END | disposition home or self-care (01) | LOC: LABWHC1 13:32 | PROVIDERS: ATTEND Nurse Practitioner Family | DX: E11.9 Type 2 diabetes mellitus without complications (principal) | CPT/HCPCS: 36415; 83036 ==

== ENCOUNTER → 2022-01-18 | Outpatient (CLI) | payer BC ==
[2022-01-18 18:05] LABS: Basophils # (A) 0.06 X 10*3/uL (0.00-0.10); Basophils % (A) 0.6 %; Eosinophils # (A) 0.14 X 10*3/uL (0.04-0.35); Eosinophils % (A) 1.5 %; HCT 32.1 % (37.2-46.3); Immature Grans, Automated 0.3 %; Lymphocytes # (A) 3.32 X 10*3/uL (0.90-5.00); Lymphocytes % (A) 35.2 %; MCH 29.3 pg (27.0-32.0); MCHC 31.2 g/dL (32.0-37.0); MCV 94.1 fL (80.0-97.0); Mean Platelet Volume 10.4 fL (9.5-12.2); Monocytes # (A) 0.56 X 10*3/uL (0.20-1.00); Monocytes % (A) 5.9 %; NRBC Per 100 WBC 0 /100 WBCS (0.0-0.0); Neutrophils # (A) 5.31 X 10*3/uL (1.80-7.70); Neutrophils % (A) 56.5 %; Platelet Count 246 X 10*3/uL (140-440); RBC 3.41 X 10*6/uL (4.10-5.20); RDW 13.8 % (11.5-14.5); WBC 9.42 X 10*3/uL (4.50-10.00)
[2022-01-19 03:51] LABS: Potassium 4.4 mmol/L (3.5-5.5)
[2022-01-19 03:53] LABS: Anion Gap 14.9 mmol/L (10.00-18.00); Carbon Dioxide 19.7 mmol/L (20.0-27.5)
== END | disposition home or self-care (01) ==
LOC: LABPAT 13:29
PROVIDERS: ATTEND Orthopaedic Surgery
DX: Z01.812 Encounter for preprocedural laboratory examination (principal); M65.311 Trigger thumb, right thumb; G56.03 Carpal tunnel syndrome, bilateral upper limbs
CPT/HCPCS: 80051; 85025

== ENCOUNTER 2022-01-27 10:39 | Day surgery (SDC) | payer BC ==
[2022-01-26 10:53] VITALS: BMI 42.9
--- NOTE | 2022-01-26 19:12 | HP ---
HISTORY AND PHYSICAL DATE OF SURGERY: 01/27/2022 Vonda Haley is a 61-year-old patient seen with symptomatic right carpal tunnel syndrome and a right trigger thumb. We discussed options for treatment. She elected to proceed with decompression of right median nerve and release of A1 marilia, right thumb. Consent was obtained. PAST MEDICAL HISTORY: Usx-fvkdqrv-uatgudria diabetes, hyperlipidemia, hypertension. PAST SURGICAL HISTORY: Cholecystectomy, hysterectomy, bladder suspension surgery, left knee arthroscopy, left total knee arthroplasty. DAILY MEDICATIONS: Atenolol, Januvia, Lipitor, metformin, Trulicity. ALLERGIES: FLAGYL. SOCIAL HISTORY: She denies tobacco use. PHYSICAL EVALUATION OF THE RIGHT HAND: She has positive carpal compression, positive carpal Tinel's, increasing numbness. Tender throughout the median nerve distribution. She has some decreased sensation throughout the median nerve distribution. She is tender along the A1 marilia of the right thumb. There is clicking and catching of the right thumb with range of motion. She has a good radial pulse present. Radiographs of the right wrist reveal some osteoarthritic changes. MRI right upper extremities revealed carpal tunnel. IMPRESSION: 1. Right carpal tunnel syndrome. 2. Right trigger thumb. 3. Hypertension. 4. Hyperlipidemia. 5. Gvv-jmhmrcr-lzbtlxjhp diabetes. PLAN: 1. Decompression of right median nerve. 2. Release of A1 marilia, right thumb. MMODL / IJN: [id number] /
[~2022-01-27 10:39] MED LIST changes: +HYDROmorphone 0.5 MG/0.5 ML SYRINGE IVP PRN; +LIDOCAINE 1% (10MG/ML) FOR IV START INTRADERMA PRN
[2022-01-27 11:31] VITALS: TEMP 98.1
[2022-01-27 11:31] LABS: Glucose,Whole Blood 100 mg/dL (75-99)
[2022-01-27] MEDS ORDERED: ONDANSETRON 4 MG/2 ML VIAL ONE (11:32)
[2022-01-27] MEDS ORDERED: ONDANSETRON 4 MG/2 ML VIAL IVP ONE (11:33)
[2022-01-27] MEDS ORDERED: BUPIVACAINE (PF) 0.25% 30 ML VIAL SQ ONE (12:14)
[2022-01-27] MEDS ORDERED: LIDOCAINE 2% INJ 20 MG/ML (2 ML VIAL) ONE (12:19)
[2022-01-27] MEDS ORDERED: PROPOFOL 10 MG/ML 20 ML VIAL IV ONE (12:19)
[2022-01-27] MEDS ORDERED: MIDAZOLAM 2 MG/2 ML VIAL ONE (12:19)
[2022-01-27] MEDS ORDERED: fentaNYL (PF) 50 MCG/ML 2 ML AMP ONE (12:19)
--- NOTE | 2022-01-27 13:00 | P.OP ---
Date of Procedure: 01/27/22 Preoperative Diagnosis: 1. Right carpal tunnel syndrome 2. Right trigger thumb Postoperative Diagnosis: Same Procedure(s) Performed: 1. Decompression right median nerve 2. Release A1 marilia right thumb Anesthesia: MAC, local Surgeon: Nacho Narvaez Estimated Blood Loss (ml): 0 Pathology: none sent Condition: stable Disposition: PACU Indications for Procedure: 61-year-old patient seen with symptomatic right carpal tunnel syndrome as well as a symptomatic right trigger thumb. We discussed options for treatment. She elected to proceed with surgical intervention to include decompression right median nerve and release A1 marilia right thumb. Operative Findings: See description of procedure Description of Procedure: The patient was taken to the operative suite. She received preoperative IV antibiotics. A well-padded tourniquet was placed along the proximal right upper extremity. The right upper extremity was prepped and draped in the normal sterile orthopedic fashion. She underwent IV sedation by the department of anesthesia. We infiltrated the proposed incision sites with quarter percent plain Marcaine totaling 14 mL. Once sufficient local analgesia was noted the extremity was elevated and the tourniquet was insufflated to 250. I now made an incision beginning at the distal volar wrist crease extending distally approximately 3 cm in line with the fourth metacarpal. I dissected down through subcu soft tissues to the palmar fascia. I dissected through the palmar fascia to the transverse carpal ligament. I made a small incision through central portion of the transcarpal ligament. I completed the release proximally and distally with blunt Metzenbaums. I noted complete release of the transverse carpal ligament and good decompression of the median nerve. I now turned my attention to the A1 marilia area of the right thumb. Made a small incision over that area. I carefully dissected down to the A1 marilia area. I made a small leanna incision through the A1 marilia area. I completed the release proximally and distally with blunt Metzenbaums. I noted complete release of A1 marilia with good excursion of the tendon. Both wounds were irrigated. Both incisions were repaired with nylon suture. We applied sterile dressings. The tourniquet was released and immediate capillary refill all digits noted. A sterile webril and Adrian bandage were applied. The patient was awakened and taken to recovery in stable condition.
[2022-01-27 13:03] VITALS: RESP 16
[2022-01-27 13:20] VITALS: BP 118/75; PULSE 75
== END 2022-01-27 13:38 | disposition home or self-care (01) ==
LOC: OR 10:39
PROVIDERS: ATTEND Orthopaedic Surgery
DX: G56.01 Carpal tunnel syndrome, right upper limb (principal); M65.311 Trigger thumb, right thumb; E11.9 Type 2 diabetes mellitus without complications; E78.5 Hyperlipidemia, unspecified; I10 Essential (primary) hypertension; Z79.84 Long term (current) use of oral hypoglycemic drugs; Z88.1 Allergy status to other antibiotic agents; Z90.49 Acquired absence of other specified parts of digestive tract; Z90.710 Acquired absence of both cervix and uterus
CPT/HCPCS: 26055; 64721; J2250; J0690; J2405; J3010; J2704; J2001

== ENCOUNTER 2022-02-10 08:16 | Day surgery (SDC) | payer BC ==
[2022-02-09 10:27] VITALS: BMI 41.5
--- NOTE | 2022-02-09 15:51 | HP ---
HISTORY AND PHYSICAL DATE OF SURGERY: 02/10/2022 Vonda Haley is a 61-year-old patient seen with symptomatic left carpal tunnel syndrome. We discussed options for treatment. She elected to proceed with decompression of the left median nerve. Consent was obtained. PAST MEDICAL HISTORY: Ogp-mebezti-nwfotdepf diabetes, hyperlipidemia, hypertension. PAST SURGICAL HISTORY: Cholecystectomy, bladder suspension surgery, knee arthroscopy, left total knee arthroplasty, decompression of right median nerve. DAILY MEDICATIONS: Atenolol, Januvia, Lipitor, metformin, omeprazole, Trulicity. ALLERGIES: NONE REPORTED. SOCIAL HISTORY: She denies tobacco use. PHYSICAL EVALUATION OF THE LEFT WRIST: She has a positive carpal compression, carpal Tinel's, exacerbating numbness, tender throughout the median nerve distribution. There is decreased sensation throughout the median nerve distribution. There is good range of motion of the digits. There is good perfusion distally. There is a good radial pulse present. Radiographs revealed some mild osteoarthritic changes. EMG revealed carpal tunnel syndrome. IMPRESSION: 1. Left carpal tunnel syndrome. 2. Hypertension. 3. Jac-rwjzays-gjinicieh diabetes. 4. Hyperlipidemia. PLAN: Decompression of left median nerve. MMODL / IJN: [id number] /
[~2022-02-10 08:16] MED LIST changes: +DEXAMETHASONE SOD PHOSPHATE 4 MG/ML 1 ML VIAL IV ONE
[2022-02-10 09:12] VITALS: TEMP 98.5
[2022-02-10 09:23] LABS: Glucose,Whole Blood 151 mg/dL (75-99)
[2022-02-10] MEDS ORDERED: ONDANSETRON 4 MG/2 ML VIAL ONE (09:23)
[2022-02-10] MEDS ORDERED: BUPIVACAINE (PF) 0.25% 30 ML VIAL SQ ONE ×2 (10:16→10:27)
[2022-02-10] MEDS ORDERED: MIDAZOLAM 2 MG/2 ML VIAL ONE (10:25)
[2022-02-10] MEDS ORDERED: fentaNYL (PF) 50 MCG/ML 2 ML AMP ONE (10:25)
[2022-02-10] MEDS ORDERED: PROPOFOL 10 MG/ML 20 ML VIAL IV ONE (10:25)
[2022-02-10] MEDS ORDERED: KETAMINE 10 MG/ML 20 ML VIAL ONE (10:25)
--- NOTE | 2022-02-10 10:51 | P.OP ---
Date of Procedure: 02/10/22 Preoperative Diagnosis: Left carpal tunnel syndrome Postoperative Diagnosis: Left carpal tunnel syndrome Procedure(s) Performed: Decompression left median nerve Anesthesia: MAC, local Surgeon: Nacho Narvaez Estimated Blood Loss (ml): 0 Pathology: none sent Condition: stable Disposition: PACU Indications for Procedure: 61-year-old patient seen with symptomatic left carpal tunnel syndrome. After treatment options were discussed, she elected to proceed with decompression left median nerve. Operative Findings: see description of procedure Description of Procedure: The patient was taken to the operative suite. She received preoperative IV antibiotics. A well-padded tourniquet was placed proximal left upper extremity. The left upper extremity was prepped and draped in the normal sterile orthopedic fashion. The proposed incision site was infiltrated with 10 mL quarter percent plain Marcaine. When sufficient local analgesia was noted the extremity was elevated and the tourniquet was insufflated to 250. I now made an incision beginning at the distal volar wrist crease extending distally approximately 3 cm in line with the fourth metacarpal. I now dissected down through the subcutaneous soft tissues and through the palmar fascia to the transverse carpal ligament. I made a small incision through the central portion of the transverse carpal ligament. I completed the release proximally and distally with blunt Metzenbaums. There was complete release of the ligament with good decompression of the nerve. There was good hemostasis. The skin margins were approximated with nylon suture. We applied sterile dressings. The tourniquet was now released with immediate capillary refill of all digits noted. The patient was transferred to recovery stable condition.
[2022-02-10 10:55] VITALS: RESP 18
[2022-02-10 11:21] VITALS: BP 137/78; PULSE 72
== END 2022-02-10 11:24 | disposition home or self-care (01) ==
LOC: OR 08:16
PROVIDERS: ATTEND Orthopaedic Surgery
DX: G56.02 Carpal tunnel syndrome, left upper limb (principal); E11.9 Type 2 diabetes mellitus without complications; E78.5 Hyperlipidemia, unspecified; I10 Essential (primary) hypertension; Z90.49 Acquired absence of other specified parts of digestive tract; Z96.652 Presence of left artificial knee joint; Z98.890 Other specified postprocedural states; G47.33 Obstructive sleep apnea (adult) (pediatric); Z87.442 Personal history of urinary calculi; K21.9 Gastro-esophageal reflux disease without esophagitis; Z88.1 Allergy status to other antibiotic agents; Z79.899 Other long term (current) drug therapy; Z79.84 Long term (current) use of oral hypoglycemic drugs; Z88.3 Allergy status to other anti-infective agents; Z91.018 Allergy to other foods; Z91.09 Other allergy status, other than to drugs and biological substances
CPT/HCPCS: 64721; J2250; J1100; J0690; J2405; J3010; J2704

== ENCOUNTER → 2022-07-12 | Outpatient (CLI) | payer BC ==
--- NOTE | 2022-07-13 01:53 | MR ---
EXAMINATION TYPE: MR shoulder LT wo con DATE OF EXAM: 07/12/2022 COMPARISON: None HISTORY: LEFT SHOULDER PAIN AND LACK OF MOVEMENT Multiplanar multiecho imaging of the left shoulder with no contrast. There is intact subscapularis tendon. The biceps tendon is intact. Glenoid boubacar appear intact. There is severe narrowing of the shoulder joint space with spurring at the shoulder joint. There are subch ondral cystic changes in the glenoid. There is also subchondral degenerative changes in the articular humeral head. There is small effusion and fluid around the subscapularis tendon. There is large hypertrophic osteop hyte on the inferior aspect of the humeral head. There is spurring at the AC joint and subacromial leonardo int space narrowing and impingement. Supraspinatus tendon shows no retraction. There are small full-t hickness tear of the supraspinatus tendon near the attachment on the greater tuberosity. The infraspi natus tendon is intact. IMPRESSION: Moderate hypertrophic osteoarthritis with subchondral cystic changes on both sides of the shoulder leonardo int. Large hypertrophic osteophyte formation on the humeral head. Small full-thickness tear of the supraspinatus tendon at the attachment on the greater tuberosity. No retraction. Small shoulder joint effusion.
== END | disposition home or self-care (01) ==
LOC: RADMRIMAIN 10:44
PROVIDERS: ATTEND Orthopaedic Surgery
DX: M75.112 Incomplete rotator cuff tear or rupture of left shoulder, not specified as traumatic (principal); M19.012 Primary osteoarthritis, left shoulder

== ENCOUNTER 2022-08-02 06:48 | Observation (INO) | payer BC ==
[2022-08-02] MEDS ORDERED: ASPIRIN 81 MG PO STA (06:59)
--- NOTE | 2022-08-02 07:01 | ED ---
Chest Pain HPI - General Source: patient, RN notes reviewed Mode of arrival: wheelchair Limitations: no limitations <Zachary Wolfe - Last Filed: 08/02/22 09:05> <Kevin Dick - Last Filed: 08/02/22 09:19> - General Chief Complaint: Chest Pain Stated Complaint: Chest pain Time Seen by Provider: 08/02/22 06:49 - History of Present Illness Initial Comments: This is an 62-year-old female presents emergency Department with chief complaint left-sided chest pain. Patient states started approximately one hour prior a rrival. Patient states is left-sided pressure-type pain. Patient states does hurt when she takes a deep inspiration. She has meant that she take medications for hyperlipidemia, hypertension. She has no other prior cardiac disease. She is scheduled for left shoulder surgery one month from now but states this is not really containing salt in the past. She states it feels like her heart is raci ng again hurts when she takes a deep inspiration. Patient has no history DVT, PE no recent traveling no leg pain or leg swelling (Zachary Wolfe) - Related Data Home Medications Medication Instructions Recorded Confirmed Atorvastatin [Lipitor] 40 mg PO DAILY 12/20/16 08/02/22 FLUoxetine HCL [PROzac] 20 mg PO DAILY 12/20/16 08/02/22 metFORMIN HCL [Glucophage] 1,000 mg PO BID 12/20/16 08/02/22 sitaGLIPtin [Januvia] 100 mg PO DAILY 12/20/16 08/02/22 Dulaglutide [Trulicity] 1.5 mg SQ SA 10/06/21 08/02/22 atenoloL [Tenormin] 50 mg PO DAILY 10/06/21 08/02/22 Allergies Allergy/AdvReac Type Severity Reaction Status Date / Time adhesive Allergy Rash/Hives Verified 08/02/22 07:32 bacitracin Allergy Rash/Hives/ Verified 08/02/22 07:32 [From Triple Antibiotic] blisters [place] And Derivatives Allergy Rash/Hives Verified 08/02/22 07:32 [[place]] metronidazole [From Flagyl] Allergy Rash/Hives Verified 08/02/22 07:32 neomycin Allergy Rash/Hives/ Verified 08/02/22 07:32 [From Triple Antibiotic] blisters polymyxin B Allergy Rash/Hives/ Verified 08/02/22 07:32 [From Triple Antibiotic] blisters propoxyphene AdvReac Hallucinati Verified 08/02/22 07:32 [From Darvocet-N] ons Review of Systems ROS Other: All systems not noted in ROS Statement are negative. <Zachary Wolfe - Last Filed: 08/02/22 09:05> ROS Other: All systems not noted in ROS Statement are negative. <Kevin Dick - Last Filed: 08/02/22 09:19> ROS Statement: Those systems with pertinent positive or pertinent negative responses have been documented in the HPI. EKG Findings - EKG Comments: EKG Findings:: EKG performed at 7:02 to interpreted by ia sinus rhythm rate of 80 09/19/1996 QRS 106 QTC is QTC 412/449 - EKG Results: EKG: interpreted by ERMD <Zachary Wolfe - Last Filed: 08/02/22 09:05> Past Medical History Past Medical History: Diabetes Mellitus, GERD/Reflux, Hyperlipidemia, Hypertension, Renal Disease, Sleep Apnea/CPAP/BIPAP Additional Past Medical History / Comment(s): hx of kidney stones, hx sinus problems. History of Any Multi-Drug Resistant Organisms: MRSA Date of last positivie culture/infection: 2007 MDRO Source:: buttock Past Surgical History: Bladder Surgery, Cholecystectomy, Heart Catheterization, Hysterectomy, Orthopedic Surgery, Tubal Ligation Additional Past Surgical History / Comment(s): 2013 cardiac cath, EGD/colonoscopy, open cholecystectomy, MYOMECTOMY, dermoid tumor removed from abdomen, R foot hammer toe, I&D perirectal abscess, anal fistula repair, monarc procedure. Past Anesthesia/Blood Transfusion Reactions: No Reported Reaction Additional Past Anesthesia/Blood Transfusion Reaction / Comment(s): no hx blood transfusion Past Psychological History: No Psychological Hx Reported Smoking Status: Never smoker Past Alcohol Use History: None Reported Past Drug Use History: None Reported - Past Family History Father Family Medical History: Cancer Additional Family Medical History / Comment(s): Father from COLON cancer in his 60's. Mother Family Medical History: Coronary Artery Disease (CAD), Diabetes Mellitus, Liver Disease, Renal Disease Sister(s) Family Medical History: Deep Vein Thrombosis (DVT) <Zachary Wolfe - Last Filed: 08/02/22 09:05> General Exam Limitations: no limitations General appearance: alert, in no apparent distress Head exam: Present: atraumatic, normocephalic, normal inspection Eye exam: Present: normal appearance, PERRL, EOMI. Absent: scleral icterus, conjunctival injection, periorbital swelling ENT exam: Present: normal exam, mucous membranes moist Neck exam: Present: normal inspection, full ROM. Absent: tenderness, meningismus, lymphadenopathy Respiratory exam: Present: normal lung sounds bilaterally, chest wall tenderness (Mild left-sided). Absent: respiratory distress, wheezes, rales, rhonchi, stridor Cardiovascular Exam: Present: regular rate, normal rhythm, normal heart sounds. Absent: systolic murmur, diastolic murmur, rubs, gallop, clicks Neurological exam: Present: alert Skin exam: Present: warm, dry, intact, normal color. Absent: rash <Zachary Wolfe - Last Filed: 08/02/22 09:05> Course Vital Signs 08/02/22 06:50 Temperature 98.2 F Pulse Rate 90 Respiratory 16 Rate Blood Pressure 145/86 O2 Sat by Pulse 98 Oximetry Chest Pain MDM <Zachary Wolfe - Last Filed: 08/02/22 09:05> - [facility] 62-year-old female presented for chest pain. Initial workup including labs, EKG and chest x-ray revealed mild hypomagnesemia, elevated d-dimer. CT was read showing no evidence of PE. Patiently admitted for cardiac rule out. Patient does have multiple risk factors. (Zachary Wolfe) Disposition Time of Disposition: 08:50 <Zachary Wolfe - Last Filed: 08/02/22 09:05> <Kevin Dick - Last Filed: 08/02/22 09:19> Clinical Impression: Chest pain Disposition: ADMITTED IP TO THIS HOSP Referrals: Deandre Roper Jr, DO [Primary Care Provider] - 1-2 days
[2022-08-02 07:21] LABS: Basophils # (A) 0.1 k/uL (0-0.2); Basophils % (A) 1 %; Eosinophils # (A) 0.1 k/uL (0-0.7); Eosinophils % (A) 1 %; HCT 34.5 % (34.0-46.0); HGB 11.8 gm/dL (11.4-16.0); Lymphocytes # (A) 2.6 k/uL (1.0-4.8); Lymphocytes % (A) 28 %; MCH 30.8 pg (25.0-35.0); MCHC 34.1 g/dL (31.0-37.0); MCV 90.4 fL (80.0-100.0); Mean Platelet Volume 7.5; Monocytes # (A) 0.4 k/uL (0-1.0); Monocytes % (A) 5 %; Neutrophils % (A) 64 %; Platelet Count 258 k/uL (150-450); RBC 3.82 m/uL (3.80-5.40); WBC 9.4 k/uL (3.8-10.6)
--- NOTE | 2022-08-02 07:27 | XR ---
EXAMINATION TYPE: XR chest 2V DATE OF EXAM: 08/02/2022 COMPARISON: Chest x-ray October 06, 2021 HISTORY: Chest pain. TECHNIQUE: Frontal and lateral views of the chest are obtained. FINDINGS: There is mild bibasilar linear scarring and/or atelectasis. No pleural effusion or pneumot horax seen bilaterally. The cardiac silhouette size is stable and upper limits of normal. The osse ous structures are intact. Cholecystectomy clips are redemonstrated. IMPRESSION: Mild bibasilar linear scarring and/or atelectasis.
[2022-08-02 07:38] LABS: Partial Thromboplastin Time 22.5 sec (22.0-30.0); Prothrombin Time 10.5 sec (9.0-12.0)
[2022-08-02 07:40] LABS: Albumin 4.6 g/dL (3.5-5.0); Calcium 9.5 mg/dL (8.4-10.2); Magnesium 1.4 mg/dL (1.6-2.3); Potassium 4.3 mmol/L (3.5-5.1); Total Bilirubin 0.8 mg/dL (0.2-1.3); Total Protein 7.4 g/dL (6.3-8.2)
[2022-08-02] MEDS ORDERED: MAGNESIUM OXIDE 400 MG TAB PO STA (08:01)
--- NOTE | 2022-08-02 08:41 | CT ---
EXAMINATION TYPE: CT chest angio for PE DATE OF EXAM: 08/02/2022 COMPARISON: Same-day chest x-ray HISTORY: pe. Chest pain. Elevated d-dimer. Shortness of breath. CT DLP: 916.5 mGycm. Automated Exposure Control for Dose Reduction was Utilized. CONTRAST: CTA scan of the thorax is performed with IV Contrast, patient injected with 75 mL of Isovue 370, pulm onary embolism protocol. MIP Images are created on CT scanner and reviewed. FINDINGS: LUNGS: Mild bibasilar linear scarring and/or atelectasis is confirmed. No suspicious focal consolidat ion. No concerning masses. There is no pleural effusion or pneumothorax seen. The tracheobronchial tree is patent. MEDIASTINUM: Suboptimal study with more dense contrast in the aorta versus pulmonary arteries. Most d ense contrast in the SVC is noted. Bovine type arch is seen which is normal variant. Ascending aorta measures up to 3.7 cm in diameter. No linear density to suggest aortic dissection. No central pulmona ry embolism. Heterogeneity in the periphery. Cannot entirely exclude peripheral segmental and subsegm ental PE in this exam. There are no greater than 1 cm hilar or mediastinal lymph nodes. No cardiome zaina or pericardial effusion is seen. Coronary artery calcification is present which is noted marker for underlying coronary artery disease. OTHER: Cholecystectomy clips are present. Slight scoliotic curvature with mild to moderate multilevel spurring of the spine. Probable deep lower chest wall lipoma lateral right upper abdomen measuring 4 .0 x 1.5 cm axial image 136 is partially imaged. Inverted right breast nipple axial image 67 should b e correlated clinically. IMPRESSION: 1. No CT evidence for acute central pulmonary embolism. Cannot entirely exclude smaller segmental and subsegmental PE.No suspicious acute pulmonary process.
[2022-08-02] MEDS ORDERED: NITROGLYCERIN SL TABS 0.4 MG TAB SUBLINGUAL PRN (09:06)
[2022-08-02] MEDS ORDERED: Magnesium Replacement Protocol 1 EACH MISC MISCELLANE PRN (10:10)
[2022-08-02] MEDS ORDERED: DOBUTamine DRIP for NUC MED 500 MG in DEXTROSE/WATER 1 250ML.BAG IV PRN (10:44)
--- NOTE | 2022-08-02 11:52 | P.CRDCN ---
History of Present Illness Consult date: 08/02/22 History of present illness: History of Present Illness: The patient is a 62-year-old female with no prior documented history of CAD who has been complaining of chest discomfort. She presented with left-sided chest discomfort, respirophasic and worse with palpation associated with mild dyspnea. She is not very active physically. She has no prior history of cardiac d isease, CHF or myocardial infarction. She denies any PND, orthopnea or peripheral edema. She has no recent viral infection or unusual physical activity. In the emergency room her EKG showed no acute changes and her initial troponin was unremarkable. She underwent a CT angiogram of the chest because of mild elevation of her d-dimer, there was no evidence of central pulmonary embolus. Her coronary risks factor are positive for hypertension, diabetes and hyperlipidemia, she is a nonsmoker. Medications: Januvia 100 mg daily, metformin 1 g twice a day, atenolol 50 mg daily, Trulicity, Lipitor 40 mg daily, Prozac Review of Systems: Respiratory: She had dyspnea on exertion but no cough or fever GI: No nausea or vomiting . No history of peptic ulcer disease. No recent GI bleed. : No hematuria or dysuria. Nervous System: No stroke or seizure. Physical Examination: 62-year-old female, alert and oriented no apparent distress ,Blood pressure 139/80, Heart rate 75 Head: Normocephalic. Eyes: Sclerae nonicteric. Neck: Good carotid upstroke, no bruit, no jugular venous distention. Lungs: Clear to auscultation. Heart: Regular rate and rhythm, S1-S2, no S3, no rub. No murmur. Abdomen: Soft nontender, positive bowel sounds no organomegaly. Extremities: No edema, intact distal pulses. Labs: Hemoglobin 11.8, d-dimer 0.68, BUN 20, creatinine 0.94. Troponin less than 0.012. Chest x-ray mild bibasilar linear scarring EKG: Sinus mechanism, rate of 81, no acute ST segment changes Impression: 1. Chest discomfort, appears to be noncardiac, respirophasic in pattern 2. History of hypertension 3. History of hyperlipidemia 4. History of diabetes Plan: 1. Continue home medications 2. Obtain serial enzymes 3. Obtain an echocardiogram with Doppler 4. Depending on her progress and the results for lab data she may benefit from dobutamine stress echocardiogram in view of her multiple risk factors 5. Thank you for this consult we will follow with you Past Medical History Past Medical History: Diabetes Mellitus, GERD/Reflux, Hyperlipidemia, Hypertension, Renal Disease, Sleep Apnea/CPAP/BIPAP Additional Past Medical History / Comment(s): hx of kidney stones, hx sinus problems. History of Any Multi-Drug Resistant Organisms: MRSA Date of last positivie culture/infection: 2007 MDRO Source:: buttock Past Surgical History: Bladder Surgery, Cholecystectomy, Heart Catheterization, Hysterectomy, Orthopedic Surgery, Tubal Ligation Additional Past Surgical History / Comment(s): 2013 cardiac cath, EGD/colonoscopy, open cholecystectomy, MYOMECTOMY, dermoid tumor removed from abdomen, R foot hammer toe, I&D perirectal abscess, anal fistula repair, monarc procedure. Past Anesthesia/Blood Transfusion Reactions: No Reported Reaction Additional Past Anesthesia/Blood Transfusion Reaction / Comment(s): no hx blood transfusion Past Psychological History: No Psychological Hx Reported Smoking Status: Never smoker Past Alcohol Use History: None Reported Past Drug Use History: None Reported - Past Family History Father Family Medical History: Cancer Additional Family Medical History / Comment(s): Father from COLON cancer in his 60's. Mother Family Medical History: Coronary Artery Disease (CAD), Diabetes Mellitus, Liver Disease, Renal Disease Sister(s) Family Medical History: Deep Vein Thrombosis (DVT) Medications and Allergies Home Medications Medication Instructions Recorded Confirmed Type Atorvastatin [Lipitor] 40 mg PO DAILY 12/20/16 08/02/22 History FLUoxetine HCL [PROzac] 20 mg PO DAILY 12/20/16 08/02/22 History metFORMIN HCL [Glucophage] 1,000 mg PO BID 12/20/16 08/02/22 History sitaGLIPtin [Januvia] 100 mg PO DAILY 12/20/16 08/02/22 History Dulaglutide [Trulicity] 1.5 mg SQ SA 10/06/21 08/02/22 History atenoloL [Tenormin] 50 mg PO DAILY 10/06/21 08/02/22 History Allergies Allergy/AdvReac Type Severity Reaction Status Date / Time adhesive Allergy Rash/Hives Verified 08/02/22 07:32 bacitracin Allergy Rash/Hives/ Verified 08/02/22 07:32 [From Triple Antibiotic] blisters [place] And Derivatives Allergy Rash/Hives Verified 08/02/22 07:32 [[place]] metronidazole [From Flagyl] Allergy Rash/Hives Verified 08/02/22 07:32 neomycin Allergy Rash/Hives/ Verified 08/02/22 07:32 [From Triple Antibiotic] blisters polymyxin B Allergy Rash/Hives/ Verified 08/02/22 07:32 [From Triple Antibiotic] blisters propoxyphene AdvReac Hallucinati Verified 08/02/22 07:32 [From Darvocet-N] ons Physical Exam Vitals: Vital Signs Temp Pulse Resp BP Pulse Ox 08/02/22 06:50 98.2 F 90 16 145/86 98 Intake and Output 08/01/22 08/02/22 08/02/22 22:59 06:59 14:59 Other: Weight 110.677 kg Results 08/02/22 07:12 08/02/22 07:12 Cardiac Enzymes 08/02/22 08/02/22 Range/Units 07:12 07:12 AST 22 (14-36) U/L Troponin I <0.012 (0.000-0.034) ng/mL Coagulation 08/02/22 Range/Units 07:12 PT 10.5 (9.0-12.0) sec APTT 22.5 (22.0-30.0) sec CBC 08/02/22 Range/Units 07:12 WBC 9.4 (3.8-10.6) k/uL RBC 3.82 (3.80-5.40) m/uL Hgb 11.8 (11.4-16.0) gm/dL Hct 34.5 (34.0-46.0) % Plt Count 258 (150-450) k/uL Comprehensive Metabolic Panel 08/02/22 Range/Units 07:12 Sodium 139 (137-145) mmol/L Potassium 4.3 (3.5-5.1) mmol/L Chloride 104 (98-107) mmol/L Carbon Dioxide 20 L (22-30) mmol/L BUN 20 H (7-17) mg/dL Creatinine 0.94 (0.52-1.04) mg/dL Glucose 134 H (74-99) mg/dL Calcium 9.5 (8.4-10.2) mg/dL AST 22 (14-36) U/L ALT 23 (4-34) U/L Alkaline Phosphatase 106 (38-126) U/L Total Protein 7.4 (6.3-8.2) g/dL Albumin 4.6 (3.5-5.0) g/dL Current Medications Generic Name Dose Route Start Last Admin Trade Name Freq PRN Reason Stop Dose Admin Aspirin 325 mg 08/03/22 09:00 Aspirin 325 Mg Tab PO DAILY YASMANY Dobutamine HCl/Dextrose 500 mg 250 mls @ 33.203 mls/hr 08/02/22 10:44 / IV Solution IV 08/02/22 14:44 .[id number] PRN Per Protocol Protocol 10 MCG/KG/MIN Miscellaneous Information 1 each 08/02/22 10:10 Magnesium Replacement Protocol 1 Each Misc MISCELLANE DAILY PRN Per Protocol Protocol Nitroglycerin 0.4 mg 08/02/22 09:06 Nitroglycerin Sl Tabs 0.4 Mg Tab SUBLINGUAL Q5M PRN Chest Pain Intake and Output 08/01/22 08/02/22 08/02/22 22:59 06:59 14:59 Other: Weight 110.677 kg 08/02/22 07:12 08/02/22 07:12
[2022-08-02] MEDS ORDERED: HEPARIN SODIUM 1,000 UN/ML (10ML VL) IV ONE (14:23)
[2022-08-02] MEDS ORDERED: HEPARIN SODIUM 1,000 UN/ML (10ML VL) IV PRN (14:23)
--- NOTE | 2022-08-02 14:28 | P.HPIM ---
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 Mildly elevated d-dimer 0.68. Denies lightheadedness dizziness or focal deficits. Denies diaphoresis. Reports event occurred while at work removing something from the oven, denies heavy lifting or strenuous activity t hat day or prior to the event. She described left-sided chest pain as both pressure and sharp, worsened by moving her left arm, from left to right. Reports she is scheduled to have left rotator surgery with Dr. Narvaez in 1 month. Left-sided chest pain reproducible.Reports event lasted approximately 2 hours until she received aspirin in the ER. Troponins negative 2. Magnesium 1.4, potassium 4.3, BUN 20, creatinine 0.94. Chest CT reported no evidence for acute central PE,cannot entirely exclude smaller segmental and subsegmental PE. EKG reporting sinus rhythm. Cardiology consult in place, recommendations pending. Review of Systems ROS Other: All systems not noted in ROS Statement are negative. ROS Statement: Those systems with pertinent positive or pertinent negative responses have been documented in the HPI. Past Medical History Past Medical History: Diabetes Mellitus, GERD/Reflux, Hyperlipidemia, Hypertension, Renal Disease, Sleep Apnea/CPAP/BIPAP Additional Past Medical History / Comment(s): hx of kidney stones, hx sinus problems. History of Any Multi-Drug Resistant Organisms: MRSA Date of last positivie culture/infection: 2007 MDRO Source:: buttock Past Surgical History: Bladder Surgery, Cholecystectomy, Heart Catheterization, Hysterectomy, Orthopedic Surgery, Tubal Ligation Additional Past Surgical History / Comment(s): 2013 cardiac cath, EGD/colonoscopy, open cholecystectomy, MYOMECTOMY, dermoid tumor removed from abdomen, R foot hammer toe, I&D perirectal abscess, anal fistula repair, monarc procedure. Past Anesthesia/Blood Transfusion Reactions: No Reported Reaction Additional Past Anesthesia/Blood Transfusion Reaction / Comment(s): no hx blood transfusion Past Psychological History: No Psychological Hx Reported Smoking Status: Never smoker Past Alcohol Use History: None Reported Past Drug Use History: None Reported - Past Family History Father Family Medical History: Cancer Additional Family Medical History / Comment(s): Father from COLON cancer in his 60's. Mother Family Medical History: Coronary Artery Disease (CAD), Diabetes Mellitus, Liver Disease, Renal Disease Sister(s) Family Medical History: Deep Vein Thrombosis (DVT) Medications and Allergies Home Medications Medication Instructions Recorded Confirmed Type Atorvastatin [Lipitor] 40 mg PO DAILY 12/20/16 08/02/22 History FLUoxetine HCL [PROzac] 20 mg PO DAILY 12/20/16 08/02/22 History metFORMIN HCL [Glucophage] 1,000 mg PO BID 12/20/16 08/02/22 History sitaGLIPtin [Januvia] 100 mg PO DAILY 12/20/16 08/02/22 History Dulaglutide [Trulicity] 1.5 mg SQ SA 10/06/21 08/02/22 History atenoloL [Tenormin] 50 mg PO DAILY 10/06/21 08/02/22 History Allergies Allergy/AdvReac Type Severity Reaction Status Date / Time adhesive Allergy Rash/Hives Verified 08/02/22 07:32 bacitracin Allergy Rash/Hives/ Verified 08/02/22 07:32 [From Triple Antibiotic] blisters [place] And Derivatives Allergy Rash/Hives Verified 08/02/22 07:32 [[place]] metronidazole [From Flagyl] Allergy Rash/Hives Verified 08/02/22 07:32 neomycin Allergy Rash/Hives/ Verified 08/02/22 07:32 [From Triple Antibiotic] blisters polymyxin B Allergy Rash/Hives/ Verified 08/02/22 07:32 [From Triple Antibiotic] blisters propoxyphene AdvReac Hallucinati Verified 08/02/22 07:32 [From Darvocet-N] ons Physical Exam Vitals: Vital Signs Temp Pulse Resp BP Pulse Ox 08/02/22 06:50 98.2 F 90 16 145/86 98 Intake and Output 08/01/22 08/02/22 08/02/22 22:59 06:59 14:59 Other: Weight 110.677 kg PHYSICAL EXAM: VITAL SIGNS: [As above] GENERAL: Obese, Sitting up at side of bed, no acute distress HEENT: Conjunctivae normal. eyes normal. MMM/ NECK: No JVD. No thyroid enlargement. No LNs CARDIOVASCULAR: S1, S2 regular. No murmur RESPIRATION: Breath sounds diminished in the bases. No rhonchi or crackles. No bronchial breathing. ABDOMEN: Soft, nontender . No guarding. no masses palpable. No ascites, No hepatosplenomegaly.Bowel sounds heard. LEGS: No edema. no swelling PSYCHIATRY: Alert and oriented X3, mood and affect normal. NERVOUS SYSTEM: Cranial N 2-12 grossly normal. No focal deficits. Strength and sensation grossly intact. Skin: Warm and dry,no rash Results CBC & Chem 7: 08/02/22 07:12 08/02/22 07:12 Labs: Abnormal Lab Results - Last 24 Hours (Table) 08/02/22 08/02/22 Range/Units 07:12 07:12 D-Dimer 0.68 H (<0.60) mg/L FEU Carbon Dioxide 20 L (22-30) mmol/L BUN 20 H (7-17) mg/dL Glucose 134 H (74-99) mg/dL Magnesium 1.4 L (1.6-2.3) mg/dL Assessment and Plan Assessment: Acute left chest pain, negative troponins, reproducible, suspect muscle s keletal, in a patient scheduled for left rotator cuffs surgery in 1 month. Possible acute PE Chest CTA reported no evidence for acute central PE,cannot entirely exclude smaller segmental and subsegmental PE. D-dimer 0.68 Hypertension Hyperlipidemia Diabetes mellitus, hemoglobin A1c pending. Morbid obesity, BMI 43.2 Obstructive sleep apnea, uses CPAP Hypomagnesemia Chronic kidney disease, stage II Plan: Continue on current medication regime ,monitoring and symptomatic treatment. Echo pending. Pulmonary to review CTA. Heparin drip initiated. Evaluated by cardiology and patient scheduled for stress test in a.m. discharge planning in progress for tomorrow pending stress test results, final DC recommendations and clearance per cardiology. The impression and plan of care has been dictated as directed. : I performed a history and examination of this patient, discussed the same with the dictator. I agree with the dictator's note ,documented as a scribe. Any additional findings or plans will be noted.
[2022-08-02 15:03] LABS: Partial Thromboplastin Time 22.6 sec (22.0-30.0); Prothrombin Time 10.5 sec (9.0-12.0)
[2022-08-02] MEDS: HEPARIN SOD,PORK IN 0.45% NACL 25,000 UNIT in 0.45% NACL 1 250ML.BAG IV SCH (15:27)
[2022-08-03] MEDS: HEPARIN SOD,PORK IN 0.45% NACL 25,000 UNIT in 0.45% NACL 1 250ML.BAG IV SCH (04:12)
--- NOTE | 2022-08-03 06:40 | P.CNPUL ---
History of Present Illness Consult date: 08/03/22 Requesting physician: Deandre Roper Jr Reason for consult: chest pain Chief complaint: Chest pain. History of present illness: Pulmonary/critical care consultation dated 08/03/2022. 62-year-old female, who is employed at this hospital, in the kitchen, who presents to the emergency department on August 02, with chest pain. The pain is sharp. It is definitely worse on deep breathing, coughing, and moving about. It's actually also reproducible. The pain started about 1 day prior to admi ssion. The pain is worse when she takes a deep breath. It is sharp. It does not radiate. She denies any shortness of breath, cough, fever, chills, phlegm production, etc. She does not smoke, does not have any history of any lung disease. She does have a history of diabetes, hyperlipidemia, and hypertension. She is currently on IV heparin, and room air. Her chest x-ray was essentially normal. Her CT angiogram in my opinion was normal. CBC was normal. D-dimer was minimally abnormal at 0.68. Sodium potassium chloride all normal. CO2 was 20, anion gap 15, BUN 20, creatinine 0.94. Glucose 134. Hemoglobin A1c 6.7. Magnesium 1.4. Troponins are negative 3. Review of Systems REVIEW OF SYSTEMS: CONSTITUTIONAL: [Negative.] NEUROLOGIC: [ Negative.] HEENT: [ Negative.] CARDIAC: Sharp chest pain, over the left chest and left breast area. PULMONARY: [Negative.] GI: [Negative.] : [Negative.] RHEUMATOLOGIC: [ Negative.] IMMUNOLOGIC: [ Negative.] ENDOCRINE: [Negative. ] DERMATOLOGIC: [Negative.] Past Medical History Past Medical History: Diabetes Mellitus, GERD/Reflux, Hyperlipidemia, Hypertension, Renal Disease, Sleep Apnea/CPAP/BIPAP Additional Past Medical History / Comment(s): hx of kidney stones, hx sinus problems. History of Any Multi-Drug Resistant Organisms: MRSA Date of last positivie culture/infection: 2007 MDRO Source:: buttock Past Surgical History: Bladder Surgery, Cholecystectomy, Heart Catheterization, Hysterectomy, Orthopedic Surgery, Tubal Ligation Additional Past Surgical History / Comment(s): 2013 cardiac cath, EGD/[place] py, open cholecystectomy, MYOMECTOMY, dermoid tumor removed from abdomen, R foot hammer toe, I&D perirectal abscess, anal fistula repair, monarc procedure. Past Anesthesia/Blood Transfusion Reactions: No Reported Reaction Additional Past Anesthesia/Blood Transfusion Reaction / Comment(s): no hx blood transfusion Past Psychological History: No Psychological Hx Reported Smoking Status: Never smoker Past Alcohol Use History: None Reported Past Drug Use History: None Reported - Past Family History Father Family Medical History: Cancer Additional Family Medical History / Comment(s): Father from COLON cancer in his 60's. Mother Family Medical History: Coronary Artery Disease (CAD), Diabetes Mellitus, Liver Disease, Renal Disease Sister(s) Family Medical History: Deep Vein Thrombosis (DVT) Medications and Allergies Home Medications Medication Instructions Recorded Confirmed Type Atorvastatin [Lipitor] 40 mg PO DAILY 12/20/16 08/02/22 History FLUoxetine HCL [PROzac] 20 mg PO DAILY 12/20/16 08/02/22 History metFORMIN HCL [Glucophage] 1,000 mg PO BID 12/20/16 08/02/22 History sitaGLIPtin [Januvia] 100 mg PO DAILY 12/20/16 08/02/22 History Dulaglutide [Trulicity] 1.5 mg SQ SA 10/06/21 08/02/22 History atenoloL [Tenormin] 50 mg PO DAILY 10/06/21 08/02/22 History Allergies Allergy/AdvReac Type Severity Reaction Status Date / Time adhesive Allergy Rash/Hives Verified 08/02/22 07:32 bacitracin Allergy Rash/Hives/ Verified 08/02/22 07:32 [From Triple Antibiotic] blisters [place] And Derivatives Allergy Rash/Hives Verified 08/02/22 07:32 [[place]] metronidazole [From Flagyl] Allergy Rash/Hives Verified 08/02/22 07:32 neomycin Allergy Rash/Hives/ Verified 08/02/22 07:32 [From Triple Antibiotic] blisters polymyxin B Allergy Rash/Hives/ Verified 08/02/22 07:32 [From Triple Antibiotic] blisters propoxyphene AdvReac Hallucinati Verified 08/02/22 07:32 [From Darvocet-N] ons Physical Exam Osteopathic Statement: *. No significant issues noted on an osteopathic structural exam other than those noted in the History and Physical/Consult. Vitals: Vital Signs Temp Pulse Pulse Resp BP BP Pulse Ox 08/03/22 02:44 97.7 F 70 16 138/81 96 08/02/22 19:54 97.6 F 66 17 117/72 96 08/02/22 15:00 97.7 F 76 16 131/71 95 08/02/22 14:00 74 08/02/22 12:40 97.8 F 74 16 144/81 94 L 08/02/22 11:47 75 15 139/82 97 08/02/22 06:50 98.2 F 90 16 145/86 98 Intake and Output 08/02/22 08/02/22 08/03/22 14:59 22:59 06:59 Intake Total 120.86 118.348 Balance 120.86 118.348 Intake: Intake, IV Titration 120.86 118.348 Amount Heparin Sod,Pork in 0.45% 120.86 118.348 NaCl 25,000 unit In 0.45 % NaCl 1 250ml.bag @ 18 UNITS/KG/HR 19.922 mls/hr IV .[id number] PENDING SALE TO [facility] Rx#: [id number] Other: # Voids 1 1 1 # Bowel Movements 1 Weight 110.677 kg No acute distress, oriented 3. Currently on room air. HEENT examination is grossly unremarkable. Neck supple. Full range of motion. No adenopathy thyromegaly or neck vein distention. Cardiovascular examination reveals regular rhythm rate. S1-S2 normal. No S3 or S4. No discernible murmur noted. Heart rate 70 bpm. Lungs reveal clear breath sounds. Breath sounds are equal bilaterally. No adventitious lung sounds including wheezes rhonchi or crackles. Room air resting saturation is 96%. Palpation of the left chest area, reproduces the pa in. Abdomen soft bowel sounds are heard. No masses or tenderness. Extremities are intact. No cyanosis clubbing or edema. Skin is without rash or lesion. Neurologic examination is brief but nonfocal. Results - Laboratory Findings CBC and BMP: 08/02/22 07:12 08/02/22 07:12 PT/INR, D-dimer PT 10.5 sec (9.0-12.0) 08/02/22 14:40 INR 1.0 (<1.2) 08/02/22 14:40 D-Dimer 0.68 mg/L FEU (<0.60) H 08/02/22 07:12 Abnormal lab findings: Abnormal Labs 08/02/22 08/02/22 08/02/22 07:12 07:12 07:12 APTT D-Dimer 0.68 H Carbon Dioxide 20 L BUN 20 H Glucose 134 H Hemoglobin A1c 6.7 H Magnesium 1.4 L 08/02/22 08/03/22 20:26 02:50 APTT 86.3 H 60.3 H D-Dimer Carbon Dioxide BUN Glucose Hemoglobin A1c Magnesium - Diagnostic Findings Chest x-ray: image reviewed CT scan - chest: image reviewed Assessment and Plan Assessment: Sharp left-sided chest pain, in part reproducible, also, with features of pleurisy. I suspect coxsackie B infection, i.e. viral pleurisy ([employer]), with a component of chest wall syndrome. Underlying cardiac disease should be ruled out. I do not think the patient has had a pulmonary embolism. History of hypertension. History of diabetes. History of hyperlipidemia. Obesity. Plan: Plan dated 08/03/2022. We'll await cardiology input. The patient states that she may have a stress test today. I doubt that she has pulmonary embolism. If cardiac disease is ruled out, I would treat the patient with anti-inflammatories, and a short course of corticosteroids. I believe she has chest wall syndrome, in addition to viral pleurisy/coxsackie B infection. Time with Patient: Greater than 30
--- NOTE | 2022-08-03 08:09 | P.PN ---
Subjective Progress Note Date: 08/03/22 PROGRESS NOTE The patient is a 62-year-old female with known history of hypertension, hyperlipidemia and diabetes who presented with symptoms of chest discomfort. She continues to have mild chest discomfort with deep breathing or in certain position. She denies any dizziness or palpitations. Her breathing has been stable. She denies any nausea or vomiting. Medications: Aspirin, Tenormin 50 mg daily, Lipitor 40 mg daily PHYSICAL EXAMINATION: Blood pressure 127/70 heart rate 70 LUNGS: Clear to auscultation HEART: Regular rate and rhythm, S1, S2. No S3. No systolic murmur ABDOMEN: Soft, nontender, no organomegaly EXTREMETIES: No edema LAB: Troponin less than 0.012 IMPRESSION: 1. Chest discomfort probably noncardiac 2. History of hypertension 3. History of hyperlipidemia 4. Diabetes mellitus PLAN: 1. Proceed with dobutamine stress echocardiogram today 2. Obtain an echocardiogram with Doppler 3. Stop IV heparin 4. Depending on the results of the testing further recommendations will be made Objective - Vital Signs Vital signs: Vital Signs Temp 97.6 F 08/03/22 06:58 Pulse 72 08/03/22 06:58 Resp 16 08/03/22 06:58 BP 127/73 08/03/22 06:58 Pulse Ox 96 08/03/22 06:58 FiO2 Intake & Output 08/02/22 08/03/22 08/03/22 18:59 06:59 18:59 Intake Total 239.208 Balance 239.208 Weight 110.677 kg Intake: Intake, IV Titration 239.208 Amount Heparin Sod,Pork in 0.45% 239.208 NaCl 25,000 unit In 0.45 % NaCl 1 250ml.bag @ 18 UNITS/KG/HR 19.922 mls/hr IV .[id number] [facility]AS[facility]Y Rx#: [id number] Other: # Voids 1 1 # Bowel Movements 1 - Labs CBC & Chem 7: 08/02/22 07:12 08/02/22 07:12 Labs: Abnormal Lab Results - Last 24 Hours (Table) 08/02/22 08/02/22 08/03/22 Range/Units 07:12 20:26 02:50 APTT 86.3 H 60.3 H (22.0-30.0) sec Hemoglobin A1c 6.7 H (0.0-6.0) %
[2022-08-03] MEDS ORDERED: ATORVASTATIN 40 MG TAB PO SCH (09:00)
[2022-08-03] MEDS ORDERED: FLUoxetine HCL 20 MG CAP PO SCH (09:00)
[2022-08-03] MEDS ORDERED: ASPIRIN 81 MG PO SCH (09:00)
[2022-08-03] MEDS ORDERED: LINAGLIPTIN 5 MG TABLET PO SCH (09:00)
[2022-08-03] MEDS ORDERED: atenoloL 25 MG TAB PO SCH (09:00)
[2022-08-03] MEDS ORDERED: metFORMIN 500 MG TAB PO SCH (09:00)
[2022-08-03] MEDS ORDERED: ASPIRIN 325 MG TAB PO SCH (09:00)
[2022-08-03 09:22] LABS: Basophils # (A) 0.03 X 10*3/uL (0.00-0.10); Basophils % (A) 0.4 %; Eosinophils # (A) 0.15 X 10*3/uL (0.04-0.35); Eosinophils % (A) 1.9 %; HCT 32.2 % (37.2-46.3); HGB 10.4 g/dL (12.0-15.0); Immature Grans, Automated 0.1 %; Lymphocytes # (A) 2.82 X 10*3/uL (0.90-5.00); Lymphocytes % (A) 36.3 %; MCH 29.9 pg (27.0-32.0); MCHC 32.3 g/dL (32.0-37.0); MCV 92.5 fL (80.0-97.0); Mean Platelet Volume 10.6 fL (9.5-12.2); Monocytes # (A) 0.52 X 10*3/uL (0.20-1.00); Monocytes % (A) 6.7 %; NRBC Per 100 WBC 0 /100 WBCS (0.0-0.0); Neutrophils # (A) 4.23 X 10*3/uL (1.80-7.70); Neutrophils % (A) 54.6 %; Platelet Count 232 X 10*3/uL (140-440); RBC 3.48 X 10*6/uL (4.10-5.20); RDW 13.2 % (11.5-14.5); WBC 7.76 X 10*3/uL (4.50-10.00)
[2022-08-03 09:38] LABS: LDL Cholesterol,Calculated 30.2 mg/dL (0.0-131.0); Magnesium 1.6 mg/dL (1.5-2.4)
[2022-08-03] MEDS ORDERED: DOBUTamine DRIP for NUC MED 500 MG in DEXTROSE/WATER 1 250ML.BAG IV PRN (11:00)
[2022-08-03] MEDS ORDERED: DOBUTamine DRIP for NUC MED 500 MG/250 ML BAG IV ONE (11:15)
--- NOTE | 2022-08-03 12:49 | CA ---
Dobutamine Stress Echocardiogram Report Vonda Haley Age: 62 Gender: F : 1960 Exam Date: 08/03/2022 11:12 Exam Location: [facility] Ordering Physician: Jacquelin Rainey Referring Physician: [id number] Dye E Commerce Marketing Manager: CLAU Technologist: Ht (in): 63 Wt (lb): 244 Procedure CPT: Indication: Chest Pain ICD-9 Codes: Rhythm: Patient History: Cardiac Medications: Medications in past 24 hours: Contrast: Lumason Total Dose (mL): 5 Stress Results Protocol: Dobutamine Peak Dose (???g/kg/min): 30 Duration (min:sec): Atropine:(mg) None Target HR: 135 Double Product: 60337 Resting HR: 72 Resting BP: 129 / 78 Peak HR: 171 Peak BP: 183 / 57 Max Predicted HR: 159 108 % Max Predicted HR Stress Summary: BP Response: Reason for Termination: Exceeded target heart rate (85% max predicted) Cardiac Symptoms: NO SYMPTOMS ECG Analysis Resting EKG: Normal sinus rhythm, normal ECG Stress EKG: No abnormal ST/T wave changes with exercise Arrhythmia: None Echo Analysis Base Echo Analysis: Normal resting echocardiogram. Low Echo Anaylsis: No wall motion changes with stress. Peak Echo Analysis: No wall motion changes with stress. Recovery Echo: No wall motion changes with stress. MEASUREMENTS (Male/Female) Normal Values CONCLUSIONS 1. Normal EKG response to dobutamine infusion 2. Normal stress echocardiogram with no evidence of stress- induced ischemia. Dr. Kadeem Guevara MD (Electronically Signed) Final Date: 03 August 2022 12:49
[2022-08-03 13:17] VITALS: BP 160/84; PULSE 73; RESP 14; TEMP 97.5
--- NOTE | 2022-08-03 18:07 | CA ---
Transthoracic Echo Report Name: Vonda Haley Age: 62 Gender: F : 1960 Exam Date: 08/03/2022 11:37 Exam Location: [facility] Ht (in): 63 Wt (lb): 344 Ordering Physician: Jacquelin Rainey Attending/Referring Phys: [id number], Brigid Manager Floor Luzma Zhang RDCS Procedure CPT: Indications: Chest Pain Cardiac Hx: Technical Quality: Technically difficult study Contrast 1: Lumason Total Dose (mL): 4 Contrast 2: Total Dose (mL): MEASUREMENTS (Male / Female) Normal Values 2D ECHO LV Diastolic Diameter PLAX 4.9 cm 4.2 - 5.9 / 3.9 - 5.3 cm LV Systolic Diameter PLAX 2.6 cm IVS Diastolic Thickness 1.2 cm 0.6 - 1.0 / 0.6 - 0.9 cm LVPW Diastolic Thickness 1.3 cm 0.6 - 1.0 / 0.6 - 0.9 cm LV Relative Wall Thickness 0.5 LA Volume 44.0 cm??? 18 - 58 / 22 - 52 cm??? M-MODE Aortic Root Diameter MM 2.5 cm LA Systolic Diameter MM 3.8 cm LA Ao Ratio MM 1.5 AV Cusp Separation MM 2.2 cm DOPPLER AV Peak Velocity 154.8 cm/s AV Peak Gradient 9.6 mmHg LVOT Peak Velocity 110.0 cm/s LVOT Peak Gradient 4.8 mmHg MV Area PHT 4.0 cm??? Mitral E Point Velocity 89.2 cm/s Mitral A Point Velocity 101.6 cm/s Mitral E to A Ratio 0.9 MV Deceleration Time 192.0 ms MV E' Velocity 9.4 cm/s Mitral E to MV E' Ratio 9.5 FINDINGS Left Ventricle Mildly increased left ventricular wall thickness. Normal left ventricular systolic function with no obvious regional wall motion abnormalities. Left ventricular ejection fraction is estimated at 55-60 %. Right Ventricle Right ventricle not well visualized. Right Atrium Right atrium not well visualized. Left Atrium Normal left atrial size. Mitral Valve Mitral valve thickened. Mild mitral annular calcification. Mild mitral regurgitation. Aortic Valve No aortic valve stenosis or regurgitation. Tricuspid Valve Tricuspid valve not well visualized. Mild tricuspid regurgitation. Pulmonic Valve Pulmonic valve not well visualized. Pericardium No pericardial effusion. Aorta Normal size aortic root and proximal ascending aorta. CONCLUSIONS 1. Normal left ventricle size and systolic function 2. Mild mitral and tricuspid regurgitation Lumason ECHO contrast used for improved visualization of the endocardial borders (inadequate visualization of two or more contiguous segments). Previewed by: Dr. Kadeem Guevara MD (Electronically Signed) Final Date: 03 August 2022 18:06
--- NOTE | 2022-08-05 14:15 | P.DS ---
Providers Date of admission: 08/02/22 09:19 Expected date of discharge: 08/05/22 Attending physician: Deandre Roper Consults: 08/02/22 09:06 Consult Physician Urgent Consulting Provider: Andreas Silverio Consult Reason/Comments: chest pain Do you want consulting provider notified?: Yes 08/02/22 13:57 Consult Physician Routine Consulting Provider: Kevin Baig Reason/Comments: ABN CTA Do you want consulting provider notified?: Yes Primary care physician: [facility] Course: Final Diagnoses: Acute left chest pain, negative troponins, reproducible, suspect muscle skeletal, in a patient scheduled for left rotator cuffs surgery in 1 month. Possible chest wall syndrome. Possible acute PE Chest CTA reported no evidence for acute central PE,cannot entirely exclude smaller segmental and subsegmental PE. D-dimer 0.68. No PE per pulmonary review of CTA. Hypertension Hyperlipidemia Diabetes mellitus, hemoglobin A1c pending. 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 Mildly elevated d-dimer 0.68. Denies lightheadedness dizziness or focal deficits. Denies diaphoresis. Reports event occurred while at work removing something from the oven, denies heavy lifting or strenuous activity that day or prior to the event. She described left-sided chest pain as both pressure and sharp, worsened by moving her left arm, from left to right. Reports she is scheduled to have left rotator surgery with Dr. Narvaez in 1 month. Left-sided chest pain reproducible.Reports event lasted approximately 2 hours until she received aspirin in the ER. Troponins negative 2. Magnesium 1.4, potassium 4.3, BUN 20, creatinine 0.94. Chest CT reported no evidence for acute central PE,cannot entirely exclude smaller segmental and subsegmental PE. EKG reporting sinus rhythm. Cardiology consult in place, recommendations pending. He evaluated by pulmonary, reviewed CTA, doubt PE, recommending short course as cost dose steroids for chest wall syndrome, pending cardiac disease is ruled out. Patient is scheduled for dobutamine stress test and will be discharged home later today in a stable condition with guarded prognosis pending stress test results, final DC recommendations and clearance per cardiology. The impression and plan of care has been dictated as directed. : I performed a history and examination of this patient, discussed the same with the dictator. I agree with the dictator's note ,documented as a scribe. Any additional findings or plans will be noted. Patient Condition at Discharge: Stable Plan - Discharge Summary Discharge Rx Participant: Yes New Discharge Prescriptions: New predniSONE 10 mg PO DIRECTED #30 tab Continue sitaGLIPtin [Januvia] 100 mg PO DAILY FLUoxetine HCL [PROzac] 20 mg PO DAILY Atorvastatin [Lipitor] 40 mg PO DAILY metFORMIN HCL [Glucophage] 1,000 mg PO BID atenoloL [Tenormin] 50 mg PO DAILY Dulaglutide [Trulicity] 1.5 mg SQ SA Discharge Medication List Atorvastatin [Lipitor] 40 mg PO DAILY 12/20/16 [History] FLUoxetine HCL [PROzac] 20 mg PO DAILY 12/20/16 [History] metFORMIN HCL [Glucophage] 1,000 mg PO BID 12/20/16 [History] sitaGLIPtin [Januvia] 100 mg PO DAILY 12/20/16 [History] Dulaglutide [Trulicity] 1.5 mg SQ SA 10/06/21 [History] atenoloL [Tenormin] 50 mg PO DAILY 10/06/21 [History] predniSONE 10 mg PO DIRECTED #30 tab 08/03/22 [Rx] Follow up Appointment(s)/Referral(s): Deandre Roper Jr, DO [Primary Care Provider] - 3 Days Patient Instructions/Handouts: Chest Pain (DC) Discharge Disposition: HOME SELF-CARE
[2022-08-07] MEDS ORDERED: Dulaglutide [Trulicity] 1.5 MG/0.5 ML SQ SCH (09:00)
== END 2022-08-03 14:55 | disposition home or self-care (01) ==
LOC: EC 06:48 → 6NMEDSUR 09:19
PROVIDERS: ADMIT Family Medicine; ATTEND Family Medicine
DX: R07.89 Other chest pain (principal); E83.42 Hypomagnesemia; I12.9 Hypertensive chronic kidney disease with stage 1 through stage 4 chronic kidney disease, or unspecified chronic kidney disease; E78.5 Hyperlipidemia, unspecified; E11.9 Type 2 diabetes mellitus without complications; K21.9 Gastro-esophageal reflux disease without esophagitis; N18.2 Chronic kidney disease, stage 2 (mild); I25.10 Atherosclerotic heart disease of native coronary artery without angina pectoris; I08.1 Rheumatic disorders of both mitral and tricuspid valves; G47.33 Obstructive sleep apnea (adult) (pediatric); E66.01 Morbid (severe) obesity due to excess calories; Z79.899 Other long term (current) drug therapy; Z79.84 Long term (current) use of oral hypoglycemic drugs; Z90.49 Acquired absence of other specified parts of digestive tract; Z90.710 Acquired absence of both cervix and uterus; Z98.51 Tubal ligation status; Z80.0 Family history of malignant neoplasm of digestive organs; Z83.3 Family history of diabetes mellitus; Z82.49 Family history of ischemic heart disease and other diseases of the circulatory system; Z68.41 Body mass index [BMI] 40.0-44.9, adult
CPT/HCPCS: 96376; 96365; 96366; 99285; 36415; 93005; 93306; 93351; 85379; 80061; 80053; 83735 ×2; 84484; 85025 ×2; 85610; 85730 ×2; 82272; 83036; 71046; 71275; G0378 ×2; J1250; J1644 ×3; Q9950; Q9967

== ENCOUNTER → 2022-08-25 | Outpatient (CLI) | payer BC ==
[2022-08-26 01:04] LABS: Basophils # (A) 0.06 X 10*3/uL (0.00-0.10); Basophils % (A) 0.7 %; Eosinophils # (A) 0.16 X 10*3/uL (0.04-0.35); Eosinophils % (A) 1.8 %; HCT 34.5 % (37.2-46.3); HGB 10.9 g/dL (12.0-15.0); Immature Grans, Automated 0.4 %; Lymphocytes # (A) 3.41 X 10*3/uL (0.90-5.00); Lymphocytes % (A) 37.3 %; MCH 29.9 pg (27.0-32.0); MCHC 31.6 g/dL (32.0-37.0); MCV 94.8 fL (80.0-97.0); Mean Platelet Volume 10.6 fL (9.5-12.2); Monocytes # (A) 0.52 X 10*3/uL (0.20-1.00); Monocytes % (A) 5.7 %; NRBC Per 100 WBC 0 /100 WBCS (0.0-0.0); Neutrophils # (A) 4.94 X 10*3/uL (1.80-7.70); Neutrophils % (A) 54.1 %; Platelet Count 258 X 10*3/uL (140-440); RBC 3.64 X 10*6/uL (4.10-5.20); RDW 13.6 % (11.5-14.5); WBC 9.13 X 10*3/uL (4.50-10.00)
== END | disposition home or self-care (01) ==
LOC: LABWHC1 13:34
PROVIDERS: ATTEND Orthopaedic Surgery
DX: Z01.812 Encounter for preprocedural laboratory examination (principal); M75.42 Impingement syndrome of left shoulder
CPT/HCPCS: 36415; 85025

== ENCOUNTER → 2022-09-08 | Day surgery (SDC) | payer BC ==
--- NOTE | 2022-09-07 13:14 | HP ---
HISTORY AND PHYSICAL DATE OF SURGERY: 09/08/2022. HISTORY OF PRESENT ILLNESS: Vonda Haley is a 62-year-old patient who is seen with progressive left shoulder pain. We discussed options for treatment. She elected to proceed with left shoulder arthroscopy. Consent was obtained. PAST MEDICAL HISTORY: Hyperlipidemia, hypertension, ohb-uztzqmz-[id number] diabetes. PAST SURGICAL HISTORY: Cholecystectomy, foot surgery, knee arthroscopy, total knee arthroplasty, and bladder suspension surgery. MEDICATIONS: 1. Atenolol. 2. Januvia. 3. Lipitor. 4. Metformin. 5. Trulicity .. 6. Ibuprofen. ALLERGIES: Flagyl. SOCIAL HISTORY: She denies tobacco use. PHYSICAL EVALUATION OF THE LEFT SHOULDER: Flexion is 90 degrees, abduction is 80 degrees, external rotation is 10 degrees with pain and weakness. Tenderness along the anterior lateral acromion and rotator cuff insertion. Impingement is positive at 90 degrees. Cross-body adduction sign is positive. Drop-arm sign is positive. Distal neurovascular exam is intact. RADIOGRAPHS: Right shoulder radiographs revealed a type 2 acromion, evidence for acromioclavicular joint osteoarthritis and osteoarthritic changes of glenohumeral joint. An MRI of left shoulder revealed a rotator cuff tear along with osteoarthritic changes and an effusion. IMPRESSION: 1. Left shoulder impingement with rotator cuff tear. 2. Acromioclavicular joint osteoarthritis. 3. Hypertension. 4. Hyperlipidemia. 5. Fbe-fiqoclm-mebgvxsai diabetes. PLAN: Left shoulder arthroscopy, subacromial decompression, arthroscopic rotator cuff repair, possible Keri procedure and debridement. MMODL / IJN: [id number] /
[~2022-09-08] MED LIST changes: -DEXAMETHASONE SOD PHOSPHATE 4 MG/ML 1 ML VIAL IV ONE; +HYDROcodone/APAP 7.5-325MG 1 EACH TAB ONE; +HYDROcodone/APAP 7.5-325MG 1 EACH TAB PO ONE; +KETOROLAC 15 MG/ML 1 ML VIAL ONE; -LACTATED RINGERS 1,000 ML IV SCH; +LIDOCAINE 2% INJ 20 MG/ML (2 ML VIAL) ONE; +MIDAZOLAM 2 MG/2 ML VIAL IVP ONE; +MIDAZOLAM 2 MG/2 ML VIAL ONE; +ONDANSETRON 4 MG/2 ML VIAL IVP ONE; +PHENYLEPHRINE-0.9% NACL SYG 1,000 MCG/10 ML SYRINGE ONE; +PROPOFOL 10 MG/ML 20 ML VIAL IV ONE; +ROPIVACAINE 5 MG/ML 30 ML VIAL ONE; +ePHEDrine 50 MG/ML 1 ML VIAL ONE; +fentaNYL (PF) 50 MCG/ML 2 ML AMP ONE
[2022-09-08 07:17] LABS: Glucose,Whole Blood 120 mg/dL (70-110)
[2022-09-08] MEDS: LACTATED RINGERS 1,000 ML IV SCH ×2 (07:17→08:23)
--- NOTE | 2022-09-08 08:24 | P.ANPRN ---
Procedure Note - Anesthesia - Nerve Block Performed Left Interscalene Time Out Performed: Yes (08:) Date of Procedure: 09/08/22 Procedure Start Time: : Procedure Stop Time: 08:05 Location of Patient: PreOp Indication: Acute Post-Operative Pain, Requested by Surgeon (Dr Narvaez) Sedation Type: Sedate with meaningful contact maintained Preparation: Sterile Prep Position: Supine Catheter: None Needle Types: Pajunk Needle Gauge: Other (see comment) (22g) Ultrasound used to visualize needle placement: Yes Ultrasound used to observe medication spread: Yes Injectate: 0.5% Ropivacaine (see comment for volume) (20cc) Blood Aspirated: No Pain Paresthesia on Injection Noted: No Resistance on Injection: Normal Image Stored and Saved: Yes Events: Uneventful and Well Tolerated
[2022-09-08 09:48] VITALS: TEMP 96.9
--- NOTE | 2022-09-08 09:49 | P.OP ---
Date of Procedure: 09/08/22 Preoperative Diagnosis: Left shoulder impingement Postoperative Diagnosis: 1. Left shoulder rotator cuff tear 2. Left shoulder impingement 3. Left shoulder grade 3/4 glenohumeral joint osteoarthritis Procedure(s) Performed: 1. Left shoulder arthroscopic rotator cuff repair 2. Left shoulder arthroscopic subacromial decompression Implants: 15.5 Arthrex swivel lock anchor Anesthesia: GETA, regional (Interscalene block) Surgeon: Nacho Narvaez Audio Specialist #1: Josue Fofana Estimated Blood Loss (ml): 10 Pathology: none sent Condition: stable Disposition: PACU Indications for Procedure: 62-year-old patient seen with progressive left shoulder pain. After having treatment options discussed, she elected to proceed with arthroscopy. Operative Findings: see description of procedure Description of Procedure: Patient underwent an interscalene block by department of anesthesia. The patient was then taken to the operative suite. The patient underwent a general anesthetic by the department of anesthesia. The patient was placed into a lateral position and secured. There was appropriate padding of the bony prominence. Left shoulder was then prepped and draped in normal sterile orthopedic fashion. We placed the extremity in 10 pounds of longitudinal traction. A posterior incision was now made for a posterior working portal site. The trocar and cannula were inserted into the glenohumeral joint. Arthroscopy was initiated. Spinal needle was now inserted anteriorly, to ascertain the anterior working portal site. An incision was now made in that area, a trocar was inserted followed by a probe. There were grade 3/4 chondromalacia changes diffusely about the glenohumeral joint without any evidence for osteochondral tears. The labrum was frayed along the inner margins with no tears. The biceps appeared stable. Instruments were now removed from the glenohumeral joint. Utilizing the posterior working portal site, the trocar and cannula were ins erted into the subacromial space. Arthroscopy initiated. I made an incision 2 fingerbreadths lateral to the acromion. I introduced my trocar followed by my ArthroCare ablator. I now began ablating thick subacromial bursal tissue, which exposed the undersurface of the anterior acromion. There was diminished subacromial space. There was a very prominent anterior acromion. A motorized bur was introduced and a subacromial decompression was performed. I also excised some osteophytes off the inferior aspect of the distal clavicle. The AC joint was visualized and noted to be moderately arthritic, I did not think enough toward a Keri procedure. I turned my attention to the rotator cuff tendon. There was a tear along the distal supraspinatus tendon. I debrided the margins getting down to stable tendon tissue. The defect/tear measuring approximately 1.5 cm and was freely mobile over the footprint. I abraded the footprint with a motorized bur. I punched hole in the footprint area for insertion of an anchor. With the assistance of Syd BASSETT past 3 everted mattress sutures through good bites of rotator cuff tendon. All 6 limbs of suture were now passed through the eyelet of a 5.5 Arthrex swivel lock anchor. I placed the eyelet into the pre-punch hole. I held it in position while Syd BASSETT tension the suture limbs and deployed the anchor with good fixation noted. All residual suture limbs were now clipped. We had good compression of the tendon along the entire footprint. Instruments now removed from the portal sites. All portal sites were approximated with nylon suture. Sterile dressings were applied followed by a shoulder sling. Josue BASSETT assisted in this case. The patient was awakened, transferred to a bed, and taken to recovery in stable condition.
[2022-09-08 10:36] VITALS: BP 125/72
[2022-09-08 11:03] VITALS: PULSE 79; RESP 15
== END | disposition home or self-care (01) ==
LOC: OR 06:37
PROVIDERS: ATTEND Orthopaedic Surgery
DX: M75.102 Unspecified rotator cuff tear or rupture of left shoulder, not specified as traumatic (principal); G89.18 Other acute postprocedural pain; M19.012 Primary osteoarthritis, left shoulder; M75.42 Impingement syndrome of left shoulder; E11.9 Type 2 diabetes mellitus without complications; E78.5 Hyperlipidemia, unspecified; I10 Essential (primary) hypertension; Z79.1 Long term (current) use of non-steroidal anti-inflammatories (NSAID); Z79.84 Long term (current) use of oral hypoglycemic drugs; Z88.1 Allergy status to other antibiotic agents; Z90.49 Acquired absence of other specified parts of digestive tract
CPT/HCPCS: 29826; 29827; 64415; 76942; C1713; J2250; J0690; J2405; J3010; J2795; J1885; J2370; J2704; J2001

== ENCOUNTER 2023-08-22 02:48 | Emergency (ER) | payer BC ==
[2023-08-22 03:54] VITALS: RESP 18
[2023-08-22] MEDS ORDERED: SODIUM CHLORIDE 0.9% 1,000 ML IV STA (04:23)
[2023-08-22] MEDS ORDERED: MORPHINE SULFATE 4 MG/ML SYRINGE IVP STA (04:23)
[2023-08-22] MEDS ORDERED: ONDANSETRON 4 MG/2 ML VIAL IVP STA (04:23)
[2023-08-22] MEDS ORDERED: KETOROLAC 15 MG/ML 1 ML VIAL IVP STA (04:23)
[2023-08-22 05:47] LABS: Basophils # (A) 0.1 k/uL (0-0.2); Basophils % (A) 0 %; Eosinophils % (A) 0 %; HGB 12.8 gm/dL (11.4-16.0); Lymphocytes % (A) 16 %; MCH 30.3 pg (25.0-35.0); MCHC 33.7 g/dL (31.0-37.0); MCV 89.8 fL (80.0-100.0); Mean Platelet Volume 7.3; Monocytes # (A) 0.4 k/uL (0-1.0); Monocytes % (A) 4 %; Neutrophils # (A) 9.7 k/uL (1.3-7.7); Neutrophils % (A) 79 %; Platelet Count 263 k/uL (150-450); RBC 4.23 m/uL (3.80-5.40); RDW 13.5 % (11.5-15.5); WBC 12.3 k/uL (3.8-10.6)
--- NOTE | 2023-08-22 05:53 | ED ---
Abdominal Pain HPI - General Source: patient, RN notes reviewed, old records reviewed Mode of arrival: ambulatory Limitations: no limitations - History of Present Illness MD Complaint: abdominal pain -: hour(s) Location: LLQ, L flank Radiation: L flank Migration to: LLQ Severity: severe Severity scale (1-10): 8 Quality: stabbing Consistency: constant, intermittent Improves With: nothing Worsens With: nothing Associated Symptoms: nausea, vomiting <vAinash Poe - Last Filed: 08/22/23 05:51> <Kevin Schafer - Last Filed: 08/22/23 07:56> - General Chief Complaint: Abdominal Pain Stated Complaint: Kidney stones - History of Present Illness Initial Comments: This is a 63-year-old female to the emergency department for evaluation abdominal pain. History of kidney stones. States that attaches x-ray stones p ain is been different this pain is currently left-sided left flank left lower quadrant in the abdomen. Patient has significant surgical history consistent for tubal ligation and gallbladder surgery. History of kidney stones bolus feels different. This was sudden onset of pain with hot and cold chills and positive nausea with vomiting (Avinash Poe) - Related Data Home Medications Medication Instructions Recorded Confirmed Atorvastatin [Lipitor] 40 mg PO QAM 12/20/16 09/08/22 FLUoxetine HCL [PROzac] 20 mg PO QAM 12/20/16 09/08/22 metFORMIN HCL [Glucophage] 1,000 mg PO BID 12/20/16 09/08/22 sitaGLIPtin [Januvia] 100 mg PO QAM 12/20/16 09/08/22 Dulaglutide [Trulicity] 1.5 mg SQ SA 10/06/21 09/08/22 atenoloL [Tenormin] 50 mg PO QAM 10/06/21 09/08/22 Acetaminophen [Tylenol] 325 - 650 mg PO Q6H PRN 09/03/22 09/08/22 Omeprazole Magnesium [PriLOSEC OTC] 20 mg PO DAILY PRN 09/03/22 09/08/22 Previous Rx's Medication Instructions Recorded HYDROcodone/APAP 7.5-325MG [Gilbert 1 each PO Q6HR PRN #28 tab 09/08/22 7.5] HYDROcodone/APAP 5-325MG [Gilbert 1 tab PO Q6HR PRN #12 tab 08/22/23 5-325] Ibuprofen [Motrin] 600 mg PO Q8HR PRN #24 tab 08/22/23 Tamsulosin [Flomax] 0.4 mg PO DAILY #7 cap 08/22/23 Allergies Allergy/AdvReac Type Severity Reaction Status Date / Time adhesive Allergy Rash/Hives Verified 08/22/23 03:42 bacitracin Allergy Rash/Hives/ Verified 08/22/23 03:42 [From Triple Antibiotic] blisters Hudspeth And Derivatives Allergy Rash/Hives Verified 08/22/23 03:42 [Hudspeth] metronidazole [From Flagyl] Allergy Rash/Hives Verified 08/22/23 03:42 neomycin Allergy Rash/Hives/ Verified 08/22/23 03:42 [From Triple Antibiotic] blisters polymyxin B Allergy Rash/Hives/ Verified 08/22/23 03:42 [From Triple Antibiotic] blisters propoxyphene AdvReac Hallucinati Verified 08/22/23 03:42 [From Darvocet-N] ons Review of Systems ROS Other: All systems not noted in ROS Statement are negative. <Avinash Poe - Last Filed: 08/22/23 05:51> ROS Other: All systems not noted in ROS Statement are negative. <Kevin Schafer - Last Filed: 08/22/23 07:56> ROS Statement: Those systems with pertinent positive or pertinent negative responses have been documented in the HPI. Past Medical History Past Medical History: Diabetes Mellitus, GERD/Reflux, Hyperlipidemia, Hypertension, Renal Disease, Sleep Apnea/CPAP/BIPAP Additional Past Medical History / Comment(s): hx of kidney stones, hx sinus problems. History of Any Multi-Drug Resistant Organisms: MRSA Date of last positivie culture/infection: 2007 MDRO Source:: buttock Past Surgical History: Bladder Surgery, Cholecystectomy, Heart Catheterization, Hysterectomy, Orthopedic Surgery, Tubal Ligation Additional Past Surgical History / Comment(s): 2013 cardiac cath, EGD/colonoscopy, open cholecystectomy, MYOMECTOMY, dermoid tumor removed from abdomen, R foot hammer toe, I&D perirectal abscess, anal fistula repair, monarc procedure. Past Anesthesia/Blood Transfusion Reactions: No Reported Reaction Additional Past Anesthesia/Blood Transfusion Reaction / Comment(s): no hx blood transfusion Past Psychological History: No Psychological Hx Reported Smoking Status: Never smoker Past Alcohol Use History: None Reported Past Drug Use History: None Reported - Past Family History Father Family Medical History: Cancer Additional Family Medical History / Comment(s): Father from COLON cancer in his 60's. Mother Family Medical History: Coronary Artery Disease (CAD), Diabetes Mellitus, Liver Disease, Renal Disease Sister(s) Family Medical History: Deep Vein Thrombosis (DVT) <Avinash Poe - Last Filed: 08/22/23 05:51> General Exam Limitations: no limitations General appearance: alert, in no apparent distress Head exam: Present: atraumatic, normocephalic, normal inspection Eye exam: Present: normal appearance, PERRL, EOMI. Absent: scleral icterus, conjunctival injection, periorbital swelling ENT exam: Present: normal exam, mucous membranes moist Neck exam: Present: normal inspection. Absent: tenderness, meningismus, lymphadenopathy Respiratory exam: Present: normal lung sounds bilaterally. Absent: respiratory distress, wheezes, rales, rhonchi, stridor Cardiovascular Exam: Present: regular rate, normal rhythm, normal heart sounds. Absent: systolic murmur, diastolic murmur, rubs, gallop, clicks GI/Abdominal exam: Present: soft, normal bowel sounds. Absent: distended, tenderness, guarding, rebound, rigid Extremities exam: Present: normal inspection, full ROM, normal capillary refill. Absent: tenderness, pedal edema, joint swelling, calf tenderness Back exam: Present: normal inspection Neurological exam: Present: alert, oriented X3, CN II-XII intact Psychiatric exam: Present: normal affect, normal mood Skin exam: Present: warm, dry, intact, normal color. Absent: rash <Avinash Poe - Last Filed: 08/22/23 05:51> Course <Avinash Poe - Last Filed: 08/22/23 05:51> Vital Signs 08/22/23 03:40 Temperature 98.2 F Pulse Rate 92 Respiratory 18 Rate Blood Pressure 178/99 O2 Sat by Pulse 95 Oximetry - Reevaluation(s) Reevaluation #1: 08/22/23 05:52 Medical records reviewed (Avinash Poe) Reevaluation #5: 08/22/23 05:52 Differential Abdominal Pain Women: Appendicitis, Cholecystitis, diverticulosis, ischemic bowel, pancreatitis, hepatitis, UTI, gastroenteritis, AAA, incarcerated hernia, bowel obstruction, constipation, inflammatory bowel, hepatitis, peptic ulcer disease, splenic infarction, perforated viscus, vulvitis, ovarian torsion, PID, kidney stone, pipo centa abruption, this is not meant to be an all-inclusive list (Avinash Poe) Medical Decision Making - Lab Data Result diagrams: 08/22/23 05:12 <Avinash Poe - Last Filed: 08/22/23 05:51> - Lab Data Result diagrams: 08/22/23 05:12 08/22/23 05:12 <Kevin Schafer - Last Filed: 08/22/23 07:56> - Medical Decision Making I finished quick note portion of this exam, Vikash Poe (Avinash Poe) Was pt. sent in by a medical professional or institution (, PA, CLINIC CLERK, urgent care, hospital, or fci...) When possible be specific @ -No Did you speak to anyone other than the patient for history (EMS, parent, family, police, friend...)? What history was obtained from this source @ -No Did you review nursing and triage notes (agree or disagree)? Why? @ -I reviewed and agree with nursing and triage notes Were old charts reviewed (outside hosp., previous admission, EMS record, old EKG, old radiological studies, urgent care reports/EKG's, fci records)? Report findings @ -No old charts were reviewed Differential Diagnosis (chest pain, altered mental status, abdominal pain women, abdominal pain men, vaginal bleeding, weakness, fever, dyspnea, syncope, headache, dizziness, GI bleed, back pain, seizure, CVA, palpatations, mental health, musculoskeletal)? @ -Differential Abdominal Pain Women: Appendicitis, Cholecystitis, diverticulosis, ischemic bowel, pancreatitis, hepatitis, UTI, gastroenteritis, AAA, incarcerated hernia, bowel obstruction, constipation, inflammatory bowel, hepatitis, peptic ulcer disease, splenic infarction, perforated viscus, vulvitis, ovarian torsion, PID, kidney stone, placenta abruption, this is not meant to be an all-inclusive list EKG interpreted by me (3pts min.). @ -As above X-rays interpreted by me (1pt min.). @ -None done CT interpreted by me (1pt min.). @ -CT showing a mid obstructing kidney stone in the left ureter with associated hydronephrosis and perinephric edema. U/S interpreted by me (1pt. min.). @ -None done What testing was considered but not performed or refused? (CT, X-rays, U/S, labs)? Why? @ -None What meds were considered but not given or refused? Why? @ -None Did you discuss the management of the patient with other professionals (professionals i.e. Dr., PA, CLINIC CLERK, lab, RT, psych nurse, social services assistant, temperature inspector, teacher, licensing officer, mattress spring encaser)? Give summary @ -No Was smoking cessation discussed for >3mins.? @ -No Was critical care preformed (if so, how long)? @ -No Were there social determinants of health that impacted care today? How? (Homelessness, low income, unemployed, alcoholism, drug addiction, transportation, low edu. Level, literacy, decrease access to med. care, long term, rehab)? @ -No Was there de-escalation of care discussed even if they declined (Discuss DNR or withdrawal of care, Hospice)? DNR status @ -No What co-morbidities impacted this encounter? (DM, HTN, Smoking, COPD, CAD, Cancer, CVA, ARF, Chemo, Hep., AIDS, mental health diagnosis, sleep apnea, morbid obesity)? @ -[History of kidney stones Was patient admitted / discharged? Hospital course, mention meds given and route, prescriptions, significant lab abnormalities, going to OR and other pertinent info. @ -63-year-old female with left-sided flank pain and abdominal pain, history of stones. CT confirms an obstructing stone on the left. Patient's laboratory testing is unremarkable. She feels 100% better after pain medication. She will be given pain medication and close follow-up with urology. Undiagnosed new problem with uncertain prognosis? @ -No Drug Therapy requiring intensive monitoring for toxicity (Heparin, Nitro, Insulin, Cardizem)? @ -No Were any procedures done? @ -No Diagnosis/symptom? @Renal colic, obstructing kidney stone Acute, or Chronic, or Acute on Chronic? @Acute Uncomplicated (without systemic symptoms) or Complicated (systemic symptoms)? @ -default Side effects of treatment? @ -No Exacerbation, Progression, or Severe Exacerbation? @ -No Poses a threat to life or bodily function? How? (Chest pain, USA, MA, pneumonia, PE, COPD, DKA, ARF, appy, cholecystitis, CVA, Diverticulitis, Homicidal, Suicidal, threat to staff... and all critical care pts) @ -[Low risk at this time (Kevin Schafer) - Lab Data Lab Results 08/22/23 08/22/23 08/22/23 Range/Units 05:12 05:12 05:12 WBC 12.3 H (3.8-10.6) k/uL RBC 4.23 (3.80-5.40) m/uL Hgb 12.8 (11.4-16.0) gm/dL Hct 38.0 (34.0-46.0) % MCV 89.8 (80.0-100.0) fL MCH 30.3 (25.0-35.0) pg MCHC 33.7 (31.0-37.0) g/dL RDW 13.5 (11.5-15.5) % Plt Count 263 (150-450) k/uL MPV 7.3 Neutrophils % 79 % Lymphocytes % 16 % Monocytes % 4 % Eosinophils % 0 % Basophils % 0 % Neutrophils # 9.7 H (1.3-7.7) k/uL Lymphocytes # 2.0 (1.0-4.8) k/uL Monocytes # 0.4 (0-1.0) k/uL Eosinophils # 0.0 (0-0.7) k/uL Basophils # 0.1 (0-0.2) k/uL Sodium 137 (137-145) mmol/L Potassium 4.3 (3.5-5.1) mmol/L Chloride 100 (98-107) mmol/L Carbon Dioxide 22 (22-30) mmol/L Anion Gap 15 mmol/L BUN 19 H (7-17) mg/dL Creatinine 0.98 (0.52-1.04) mg/dL Est GFR (CKD-EPI)AfAm 71 (>60 ml/min/1.73 sqM) Est GFR (CKD-EPI)NonAf 62 (>60 ml/min/1.73 sqM) Glucose 176 H (74-99) mg/dL Calcium 9.9 (8.4-10.2) mg/dL Total Bilirubin 0.7 (0.2-1.3) mg/dL AST 24 (14-36) U/L ALT 24 (4-34) U/L Alkaline Phosphatase 111 (38-126) U/L Total Protein 7.4 (6.3-8.2) g/dL Albumin 4.3 (3.5-5.0) g/dL Amylase 42 (30-110) U/L Lipase 124 (23-300) U/L Urine Color Yellow Urine Appearance Clear (Clear) Urine pH 5.5 (5.0-8.0) Ur Specific Vicco 1.020 (1.001-1.035) Urine Protein Trace H (Negative) Urine Glucose (UA) Negative (Negative) Urine Ketones Negative (Negative) Urine Blood Trace (Negative) Urine Nitrite Negative (Negative) Urine Bilirubin Negative (Negative) Urine Urobilinogen <2.0 (<2.0) mg/dL Ur Leukocyte Esterase Negative (Negative) Urine RBC 4 (0-5) /hpf Urine WBC 2 (0-5) /hpf Ur Squamous Epith Cells 1 (0-4) /hpf Urine Mucus Rare H (None) /hpf Disposition <Avinash Poe - Last Filed: 08/22/23 05:51> Is patient prescribed a controlled substance at d/c from ED?: No Time of Disposition: 07:50 <Kevin Schafer - Last Filed: 08/22/23 07:56> Clinical Impression: Kidney stone on left side, Renal colic on left side Disposition: HOME SELF-CARE Condition: Fair Instructions (If sedation given, give patient instructions): Kidney Stones (ED), Renal Colic (ED) Prescriptions: Tamsulosin [Flomax] 0.4 mg PO DAILY #7 cap Ibuprofen [Motrin] 600 mg PO Q8HR PRN #24 tab PRN Reason: Pain HYDROcodone/APAP 5-325MG [Gilbert 5-325] 1 tab PO Q6HR PRN #12 tab PRN Reason: Pain Referrals: Skip Dunlap MD [Primary Care Provider] - 1-2 days Gorge Delacruz MD [STAFF PHYSICIAN] - 1-2 days
[2023-08-22 06:03] LABS: ALT 24 U/L (4-34); AST 24 U/L (14-36); African American GFR (CKD) 71 (>60 ml/min/1.73 sqM); Albumin 4.3 g/dL (3.5-5.0); Alkaline Phosphatase 111 U/L (38-126); Amylase 42 U/L (30-110); Anion Gap 15 mmol/L; Blood Urea Nitrogen 19 mg/dL (7-17); Calcium 9.9 mg/dL (8.4-10.2); Carbon Dioxide 22 mmol/L (22-30); Chloride 100 mmol/L (98-107); Glucose 176 mg/dL (74-99); Lipase 124 U/L (23-300); Non-African American GFR(CKD) 62 (>60 ml/min/1.73 sqM); Potassium 4.3 mmol/L (3.5-5.1); Sodium 137 mmol/L (137-145); Total Bilirubin 0.7 mg/dL (0.2-1.3); Total Protein 7.4 g/dL (6.3-8.2)
[2023-08-22 06:05] LABS: Appearance,Urine Clear (Clear); Bilirubin,Urine Negative (Negative); Blood,Urine Trace (Negative); Color,Urine Yellow; Glucose,Urine (UA) Negative (Negative); Ketones,Urine Negative (Negative); Mucus,Urine Rare /hpf; PH, Urine 5.5 (5.0-8.0); Protein,Urine Trace (Negative); RBC,Urine 4 /hpf (0-5); Squamous Epithelial Cell,Urine 1 /hpf (0-4); Urobilinogen,Urine <2.0 mg/dL (<2.0); WBC,Urine 2 /hpf (0-5)
[2023-08-22 06:06] LABS: Leukocyte Esterase,Urine Negative (Negative); Nitrite,Urine Negative (Negative)
--- NOTE | 2023-08-22 07:36 | CT ---
EXAMINATION TYPE: CT abdomen pelvis wo con CT DLP: 1382 mGycm, Automated exposure control for dose reduction was used. DATE OF EXAM: 08/22/2023 6:22 AM COMPARISON: CT abdomen pelvis most recent from 08/02/2013, 08/02/2022 CLINICAL INDICATION:Female, 63 years old with history of abdominal pain; TECHNIQUE: Axial CT of the ;CT abdomen pelvis wo con;Sagittal and coronal reformats were created on a separate workstation. Contrast used: mL of , (none if empty) Oral contrast used: (none if empty) FINDINGS: LOWER CHEST: Unremarkable ABDOMEN LIVER: Diffusely hypoattenuating parenchyma. GALLBLADDER AND BILE DUCTS: The gallbladder surgically absent. PANCREAS: Unremarkable. SPLEEN: Unremarkable. ADRENAL GLANDS: Unremarkable. KIDNEYS AND URETERS: Mild left hydronephrosis secondary obstructing 5 mm calculus in the proximal lef t ureter. No additional calculi visualized on the left. Nonobstructing right 3 mm calculus. No right hydronephrosis. PELVIS BLADDER: Unremarkable REPRODUCTIVE: Unremarkable. ABDOMEN & PELVIS STOMACH AND BOWEL: No evidence of bowel obstruction. Appendix is dilated and filled with feces. PERITONEUM/RETROPERITONEUM: No evidence of pneumoperitoneum or free fluid. VASCULATURE: Mild atherosclerotic calcifications are present throughout the abdominal aorta and its b ranches. No evidence of aortic aneurysm. MUSCULOSKELETAL: No acute osseous abnormalities. Mild disc degeneration changes are present throughou t the thoracolumbar spine. LYMPH NODES: No gross evidence for lymphadenopathy. SOFT TISSUE/ABDOMINAL WALL: Unremarkable IMPRESSION: 1. Mild left hydronephrosis secondary obstructing 5 mm calculus in the proximal left ureter. 2. Nonobstructing right renal calculus measuring 3 mm. 3. Hepatic steatosis.
[2023-08-22 08:29] VITALS: BP 131/84; PULSE 86; TEMP 97.9
== END 2023-08-22 08:08 | disposition home or self-care (01) ==
LOC: EC 02:48
DX: K76.0 Fatty (change of) liver, not elsewhere classified (principal); N13.2 Hydronephrosis with renal and ureteral calculous obstruction; I10 Essential (primary) hypertension; G47.30 Sleep apnea, unspecified; E11.9 Type 2 diabetes mellitus without complications; K21.9 Gastro-esophageal reflux disease without esophagitis; E78.5 Hyperlipidemia, unspecified; Z79.899 Other long term (current) drug therapy; Z79.85 Long-term (current) use of injectable non-insulin antidiabetic drugs; Z88.8 Allergy status to other drugs, medicaments and biological substances; Z91.048 Other nonmedicinal substance allergy status
CPT/HCPCS: 36415; 80053; 82150; 83690; 85025; 81001; 74176; 99284; 96374; 96375 ×2; 96361 ×3; J2270; J2405; J1885

== ENCOUNTER → 2023-10-20 | Outpatient (CLI) | payer BC | END | disposition home or self-care (01) | LOC: LABPAT 13:32 | PROVIDERS: ATTEND Orthopaedic Surgery | DX: Z01.812 Encounter for preprocedural laboratory examination (principal); M17.11 Unilateral primary osteoarthritis, right knee; Z22.322 Carrier or suspected carrier of Methicillin resistant Staphylococcus aureus | CPT/HCPCS: 87070 ==

== ENCOUNTER 2023-11-07 05:42 | Day surgery (SDC) | payer BC ==
[~2023-11-07 05:42] MED LIST changes: -HYDROcodone/APAP 7.5-325MG 1 EACH TAB ONE; -HYDROcodone/APAP 7.5-325MG 1 EACH TAB PO ONE; -HYDROmorphone 0.5 MG/0.5 ML SYRINGE IVP PRN; -KETOROLAC 15 MG/ML 1 ML VIAL ONE; -LIDOCAINE 1% (10MG/ML) FOR IV START INTRADERMA PRN; -LIDOCAINE 2% INJ 20 MG/ML (2 ML VIAL) ONE; -MIDAZOLAM 2 MG/2 ML VIAL IVP ONE; -MIDAZOLAM 2 MG/2 ML VIAL ONE; -ONDANSETRON 4 MG/2 ML VIAL IVP ONE; -PHENYLEPHRINE-0.9% NACL SYG 1,000 MCG/10 ML SYRINGE ONE; -PROPOFOL 10 MG/ML 20 ML VIAL IV ONE; -ROPIVACAINE 5 MG/ML 30 ML VIAL ONE; +TRANEXAMIC 1,000 MG/100ML-NACL 1,000 MG in SALINE 1 100ML.BAG IVPB PRN; -ePHEDrine 50 MG/ML 1 ML VIAL ONE; -fentaNYL (PF) 50 MCG/ML 2 ML AMP ONE
[2023-11-07 06:25] LABS: Glucose,Whole Blood 156 mg/dL (70-110)
[2023-11-07] MEDS ORDERED: ONDANSETRON 4 MG/2 ML VIAL ONE (06:32)
[2023-11-07] MEDS: ACETAMINOPHEN TAB 500 MG TAB PO PRN (06:36)
[2023-11-07] MEDS: DEXAMETHASONE SOD PHOSPHATE 4 MG/ML 1 ML VIAL IV ONE (06:37)
[2023-11-07] MEDS: LACTATED RINGERS 1,000 ML IV SCH (06:37)
[2023-11-07] MEDS: ONDANSETRON 4 MG/2 ML VIAL IVP ONE (06:37)
[2023-11-07] MEDS: MELOXICAM 7.5 MG TAB PO PRN (06:37)
[2023-11-07] MEDS: MIDAZOLAM 2 MG/2 ML VIAL IVP ONE (06:49)
[2023-11-07] MEDS: fentaNYL (PF) 50 MCG/1 ML VIAL IVP ONE ×2 (06:49)
[2023-11-07] MEDS ORDERED: LIDOCAINE 1% INJ 10MG/ML (20 ML MDV) ONE (07:27)
[2023-11-07] MEDS ORDERED: SODIUM CHLORIDE 0.9% (PF) 10 ML VIAL ONE (07:27)
[2023-11-07] MEDS ORDERED: DEXAMETHASONE SOD PHOSPHATE 4 MG/ML 1 ML VIAL ONE (07:27)
[2023-11-07] MEDS ORDERED: ROPIVACAINE 5 MG/ML 30 ML VIAL ONE (07:27)
[2023-11-07] MEDS ORDERED: PROPOFOL 10 MG/ML 20 ML VIAL IV ONE (07:27)
[2023-11-07] MEDS ORDERED: SUCCINYLCHOLINE CHLORIDE 200 MG/10 ML VIAL IV ONE (07:27)
[2023-11-07] MEDS ORDERED: MIDAZOLAM 2 MG/2 ML VIAL ONE (07:27)
[2023-11-07] MEDS ORDERED: TRANEXAMIC 1,000 MG/100ML-NACL PREMIX BAG ONE (07:27)
[2023-11-07] MEDS ORDERED: ROCURONIUM 10 MG/ML (5 ML VIAL) IV ONE (07:27)
[2023-11-07] MEDS ORDERED: NEOSTIGMINE 1 MG/ML 10 ML VIAL ONE (07:27)
[2023-11-07] MEDS ORDERED: fentaNYL (PF) 50 MCG/ML 2 ML AMP ONE (07:27)
[2023-11-07] MEDS ORDERED: GLYCOPYRROLATE 0.2 MG/ML 2 ML VIAL ONE (07:27)
--- NOTE | 2023-11-07 07:42 | HP ---
HISTORY AND PHYSICAL DATE OF SURGERY: 11/07/2023 HISTORY OF PRESENT ILLNESS: Vonda Haley is a 63-year-old patient, seen with symptomatic right knee osteoarthritis. After treatment options were discussed with her, she elected to proceed with right total knee arthroplasty. Consent was obtained. Medical clearance was provided from Dr. Dunlap's office. PAST MEDICAL HISTORY: Dlr-jegjxal-sxjweuhxu diabetes, hypertension, hyperlipidemia, gastroesophageal reflux disease. PAST SURGICAL HISTORY: Cholecystectomy, hysterectomy, knee arthroscopy, left total knee arthroplasty, bladder suspension surgery. DAILY MEDICATIONS: 1. Trulicity. 2. Tylenol. 3. Atenolol. 4. Januvia. 5. Lipitor. 6. Metformin. 7. Omeprazole. ALLERGIES: Flagyl. SOCIAL HISTORY: She denies tobacco use. PHYSICAL EVALUATION OF THE RIGHT KNEE: Her range of motion is 0 to 120 degrees. There is a mild effusion present. She has tenderness along the medial joint line. Crepitance along the medial and patellofemoral compartments with range of motion. Pain with patellofemoral compression. Ligaments stable. Hip rotation without pain. Distal neurovascular exam is intact. IMAGING STUDIES: Right knee radiographs reveal severe medial compartment and mild patellofemoral compartment osteoarthritis. IMPRESSION: 1. Right knee osteoarthritis. 2. Hypertension. 3. Hyperlipidemia. 4. Wqw-dumnvxn-dsausvvld diabetes. PLAN: Right total knee arthroplasty. MMODL / IJN: [id number] /
[2023-11-07] MEDS: ceFAZolin 1,000 MG in SODIUM CHLORIDE 0.9% 1,000 ML IRRIGATION ONE (07:59)
--- NOTE | 2023-11-07 08:12 | P.ANPRN ---
Procedure Note - Anesthesia - Nerve Block Performed Right Adductor Canal Infusion Time Out Performed: Yes Date of Procedure: 11/07/23 Procedure Start Time: 06:49 Procedure Stop Time: 06:59 Indication: Acute Post-Operative Pain, Requested by Surgeon Sedation Type: Sedate with meaningful contact maintained Preparation: Sterile Prep, Sterile Dressing Position: Supine Catheter: Indwelling Needle Types: Pajunk Needle Gauge: 18 Ultrasound used to visualize needle placement: Yes Ultrasound used to observe medication spread: Yes Injectate: 0.5% Ropivacaine (see comment for volume) (Ropivacaine 0.5% 20 ml + 10 ml NS + 4 mg Dexamethasone) Blood Aspirated: No Pain Paresthesia on Injection Noted: No Resistance on Injection: Normal Image Stored and Saved: Yes Events: Uneventful and Well Tolerated
--- NOTE | 2023-11-07 08:13 | P.ANPRN ---
Procedure Note - Anesthesia - Nerve Block Performed Right iPack Single Time Out Performed: Yes Date of Procedure: 11/07/23 Procedure Start Time: 07:00 Procedure Stop Time: 07:07 Location of Patient: PreOp Indication: Acute Post-Operative Pain, Requested by Surgeon Sedation Type: Sedate with meaningful contact maintained Preparation: Sterile Prep Position: Left Lateral Needle Types: Pajunk Needle Gauge: 21 Ultrasound used to visualize needle placement: Yes Ultrasound used to observe medication spread: Yes Injectate: 0.5% Ropivacaine (see comment for volume) (Ropivacaine 0.5% 20 ml + 10 ml NS + 4 mg Dexamethasone) Blood Aspirated: No Pain Paresthesia on Injection Noted: No Resistance on Injection: Normal Image Stored and Saved: Yes Events: Uneventful and Well Tolerated
[2023-11-07] MEDS: LACTATED RINGERS 1,000 ML IV ONE (08:56)
[2023-11-07] MEDS ORDERED: NALOXONE 0.4 MG/ML 1 ML VIAL IV PRN (09:09)
[2023-11-07] MEDS ORDERED: HYDROcodone/APAP 5-325MG 1 EACH TAB PO PRN (09:09)
[2023-11-07] MEDS ORDERED: ONDANSETRON 4 MG/2 ML VIAL IVP PRN (09:09)
[2023-11-07] MEDS ORDERED: HYDROmorphone 0.5 MG/0.5 ML SYRINGE IVP PRN ×2 (09:09)
[2023-11-07] MEDS ORDERED: LACTATED RINGERS 1,000 ML IV ONE (09:09)
[2023-11-07] MEDS ORDERED: HYDROmorphone 1 MG/ML 1 ML SYRINGE IVP PRN (09:09)
--- NOTE | 2023-11-07 09:09 | P.OP ---
Date of Procedure: 11/07/23 Preoperative Diagnosis: Right knee osteoarthritis Postoperative Diagnosis: Right knee osteoarthritis Procedure(s) Performed: Right total knee arthroplasty Implants: 1. DePuy attune size 5 right cruciate retaining cemented femur 2. DePuy attune size 5 fixed-bearing cemented tibial baseplate 3. DePuy attune size 5 fixed-bearing cruciate retaining 8 mm polyethylene tibial insert 4. DePuy attune 35 mm all polyethylene cemented patella Anesthesia: GETA, regional (Adductor canal catheter, iPAQ block) Surgeon: Nacho Narvaez Lumber Sorter #1: Josue Fofana Estimated Blood Loss (ml): 50 Pathology: none sent Condition: stable Disposition: PACU Indications for Procedure: 63-year-old patient seen with symptomatic right knee osteoarthritis. After having treatment options discussed, she elected to proceed with total knee a rthroplasty. Operative Findings: See description of procedure Description of Procedure: Patient was taken to the operative suite after having an adductor canal catheter placed by the department of anesthesia. Patient underwent a general anesthetic by the department of anesthesia. Patient was given preoperative IV intake antibiotics and TXA. A well-padded tourniquet was placed about the right lower extremity. The lower extremity was then prepped and draped in the normal sterile orthopedic fashion. The extremity was elevated, a tourniquet was insufflated to 300. A standard anterior incision was made sharply through skin. Dissection was taken down through the subcutaneous soft tissues down to the extensor mechanism. A medial arthrotomy was performed, patella was everted and knee was flexed. There was advanced osteoarthritis noted. I introduced my distal intramedullary femoral drill. I then introduced the distal femoral cutting jig. Syd BASSETT secured the cutting jig with 2 pins. I held retractors in position while Syd BASSETT performed the distal femoral resection through the guide area we now removed her distal femoral cutting guide. We now placed our 4-in-1 femoral cutting block and positioned and it was secured with 2 pins by Syd BASSETT while I held the block in position. The distal femoral finishing was now completed. A proximal tibial cutting guide was positioned. I held the guide in the appropriate position with both hands well Syd BASSETT inserted stabilizing pins into the guide. Proximal tibial cut was made. We now placed a trial femoral component into position, along with an appropriate size tibial tray and insert. We now took the knee through range of motion and had full extension good flexion and good overall soft tissue balance noted. The patella was everted and stabilized with 2 towel clips held by Syd BASSETT while I performed a flush with patellar quad tendon utilizing a fresh sawblade. We templated the patella, appropriate drill holes were made. An appropriate trial patella was positioned, knee was taken through full range of motion with the patella tracking very nicely. The trial patella was removed. Drill holes were made through the femoral component. All trial components were removed after marking off the appropriate rotation of the tibia. Retractors were now positioned along the proximal tibia. An appropriate keel punch was made with the appropriate size tibial guide by myself on Syd BASSETT assisted by holding retractors. At this point appropriate size implants were chosen and opened. The joint was irrigated copiously with pulse lavage mechanical irrigation. The wound was irrigated with pulse lavage mechanical irrigation. We mixed antibiotic methylmethacrylate. We placed the knee into flexion. We placed multiple retractors assisted by Syd BASSETT to expose the proximal tibia. Once the methyl methacrylate was ready, the tibial component was cemented into place removing any excess methylmethacrylate form by both myself and Syd BASSETT. The femoral component was cemented into place removing the removing any excess methylmethacrylate performed by both myself and Syd BASSETT. We then inserted the appropriate size polyethylene tibial insert. We made sure that it was locked into position. We took the knee into full extension, and then back in a flexion making sure we had removed any excess methylmethacrylate. The patellar component was then cemented down and secured with clamp. Excess methylmethacrylate removed. We kept the knee in full extension, patellar clamp in position until methylmethacrylate had hardened. Once it had hardened the patellar clamp was removed. The knee was taken through full range of motion. The patella tracked nicely. There was good soft tissue balancing. The tourniquet was now released. Additional hemostasis was achieved via electrocautery. A second gram of TXA was given. The wound again was irrigated with pulse lavage mechanical irrigation. The extensor mechanism was repaired with Ethibond suture. We checked the repair with range of motion and it was stable. The subcutaneous soft tissues were repaired with Vicryl in layers. The skin was approximated with pernio/Dermabond. Sterile dressings were applied followed by loose web roll and Adrian bandage. The patient was transferred to a bed, and taken to recovery in stable and satisfactory condition. Syd BASSETT assisted with this complex procedure.
[2023-11-07 09:43] VITALS: TEMP 97.8
[2023-11-07] MEDS: ROPIVACAINE 0.75% 1,100 MG, SODIUM CHLORIDE 0.9% 500 ML 403 ML, EMPTY PAIN BALL 1 EACH MISCELLANE PRN (09:45)
[2023-11-07] MEDS: HYDROmorphone 0.5 MG/0.5 ML SYRINGE IVP PRN (09:46)
[2023-11-07 10:38] LABS: Glucose,Whole Blood 218 mg/dL (70-110)
[2023-11-07] MEDS: INSULIN ASPART (NovoLOG) 100 UNIT/ML VIAL SQ ONE (10:44)
--- NOTE | 2023-11-07 10:47 | XR ---
EXAMINATION TYPE: XR knee limited RT DATE OF EXAM: 11/07/2023 10:33 AM CLINICAL INDICATION:Female, 63 years old with history of Evaluation for Postop abnormality and alignm ent; H COMPARISON: 09/28/2023 TECHNIQUE: XR knee limited RT; examined in Frontal, lateral and oblique projections. FINDINGS: Status post total knee arthroplasty changes with hardware in appropriate alignment and in tact. No evidence of fracture. Subcutaneous lucencies and lucencies within the joint consistent with surgical changes. IMPRESSION: Status post total knee arthroplasty changes with hardware intact and appropriate alignment. No fractu res identified.
[2023-11-07] MEDS ORDERED: HYDROcodone/APAP 7.5-325MG 1 EACH TAB ONE (11:02)
[2023-11-07] MEDS: HYDROcodone/APAP 7.5-325MG 1 EACH TAB PO PRN (11:03)
[2023-11-07 11:15] VITALS: RESP 16
[2023-11-07 11:45] VITALS: BP 148/81; PULSE 74
== END 2023-11-07 12:37 | disposition home health service (06) ==
LOC: OR 05:42
PROVIDERS: ATTEND Orthopaedic Surgery
DX: M17.11 Unilateral primary osteoarthritis, right knee (principal); G89.18 Other acute postprocedural pain; E11.9 Type 2 diabetes mellitus without complications; I10 Essential (primary) hypertension; E78.5 Hyperlipidemia, unspecified; F32.A Depression, unspecified; K21.9 Gastro-esophageal reflux disease without esophagitis; E66.01 Morbid (severe) obesity due to excess calories; Z90.49 Acquired absence of other specified parts of digestive tract; Z90.710 Acquired absence of both cervix and uterus; Z96.652 Presence of left artificial knee joint; Z98.890 Other specified postprocedural states; Z79.85 Long-term (current) use of injectable non-insulin antidiabetic drugs; Z79.84 Long term (current) use of oral hypoglycemic drugs; Z79.899 Other long term (current) drug therapy; Z88.8 Allergy status to other drugs, medicaments and biological substances; Z88.1 Allergy status to other antibiotic agents
CPT/HCPCS: 97162; 64999; 64448; 73560; 27447; C1776; C1713 ×2; C1751; J2250; J0330; J1100; J2710; J0690 ×2; J2405; J2001; J3010 ×2; J2795 ×2; J2704; J1170

== ENCOUNTER → 2024-02-17 | Outpatient (CLI) | payer BC ==
[2024-02-17 19:37] LABS: Basophils # (A) 0.07 X 10*3/uL (0.00-0.10); Basophils % (A) 0.7 %; Eosinophils # (A) 0.16 X 10*3/uL (0.04-0.35); Eosinophils % (A) 1.6 %; HCT 35.5 % (37.2-46.3); HGB 11.2 g/dL (12.0-15.0); Lymphocytes # (A) 3.61 X 10*3/uL (0.90-5.00); MCHC 31.5 g/dL (32.0-37.0); Mean Platelet Volume 10.1 FL (9.5-12.2); Monocytes # (A) 0.64 X 10*3/uL (0.20-1.00); Monocytes % (A) 6.6 %; NRBC Per 100 WBC 0 X 10*3/uL (0.00-0.01); Neutrophils # (A) 5.22 X 10*3/uL (1.80-7.70); Neutrophils % (A) 53.6 %; Platelet Count 296 X 10*3/uL (140-440); RBC 3.86 X 10*6/uL (4.10-5.20); RDW 13.9 % (11.5-14.5); WBC 9.75 X 10*3/uL (4.50-10.00)
[2024-02-17 19:51] LABS: Erythrocyte Sedimentation Rate 14 mm/Hr (0-30)
[2024-02-17 20:10] LABS: % Iron Saturation 9.74 (12.00-45.00); ALT 15 U/L (8-44); AST 15 U/L (13-35); Albumin 4.5 g/dL (3.8-4.9); Albumin/Globulin Ratio 1.67 Ratio (1.60-3.17); Alkaline Phosphatase 103 U/L (41-126); Blood Urea Nitrogen 24.3 mg/dL (9.0-27.0); Calcium 9.7 mg/dL (8.7-10.3); Carbon Dioxide 24.2 mmol/L (21.6-31.8); Chloride 108 mmol/L (96-109); Ferritin 32.4 ng/mL (10.0-291.0); Globulin 2.7 g/dL (1.6-3.3); Glucose 105 mg/dL (70-110); Iron 42 UG/DL (50-170); Potassium 4.2 mmol/L (3.5-5.5); Sodium 148 mmol/L (135-145); Total Bilirubin 0.2 mg/dL (0.3-1.2); Total Iron Binding Capacity 431 UG/DL (228-460); Total Protein 7.2 g/dL (6.2-8.2)
== END | disposition home or self-care (01) ==
LOC: LABWHC1 13:41
PROVIDERS: ATTEND Internal Medicine Gastroenterology
DX: K58.0 Irritable bowel syndrome with diarrhea (principal); D50.9 Iron deficiency anemia, unspecified
CPT/HCPCS: 36415; 80053; 82728; 83516; 83540; 83550; 85025; 85652; 86140

== ENCOUNTER → 2024-02-21 | Outpatient (CLI) | payer BC ==
--- NOTE | 2024-02-22 11:16 | MM ---
Reason for Exam: Screening (asymptomatic). Last mammogram was performed 1 year(s) and 3 month(s) ago. Patient History: Menarche at age 18. Patient has no children. Left ovary removed at age 41. Hysterectomy at age 41. Postmenopausal. Hormonal Contraceptives, starting at age 31 for 7 years. Maternal aunt (Lori) had breast cancer, age 45. Maternal aunt (Perla) had breast cancer, age 45. Risk Values: Maryjane 5 year model risk: 1.5%. NCI Lifetime model risk: 7.0%. Prior Study Comparison: 11/05/2020 Bilateral Screening Mammogram, [facility]. 11/19/2021 Bilateral Screening Mammogram, [facility]. 11/22/2022 Bilateral MG screening mammo w CAD, [facility]. Tissue Density: There are scattered areas of fibroglandular density. Findings: Analyzed By CAD. Right breast: There is no suspicious group of microcalcifications or new suspicious mass. Left breast: There is no suspicious group of microcalcifications or new suspicious mass. Overall Assessment: Negative, BI-RAD 1 Management: Screening Mammogram of both breasts in [address] [facility] will attempt to contact patient to return for supplemental views and ultrasound if indicated. Patient should continue monthly self-breast exams. A clinical breast exam by your physician is recommended on an annual basis. This exam should not preclude additional follow-up of suspicious palpable abnormalities. Note on Maryjane scores and lifetime risk: 1. A Maryjane score greater than 3% is considered moderate risk. If this is the case, consider specialist referral to assess eligibility for a risk reducing agent. 2. If overall lifetime risk for the development of breast cancer is 20% or higher, the patient may qualify for future screening with alternating mammogram and breast MRI. Electronically signed and approved by: Kevin Wayne DO
== END | disposition home or self-care (01) ==
LOC: RADMAMWWP 13:37
PROVIDERS: ATTEND Family Medicine
DX: Z12.31 Encounter for screening mammogram for malignant neoplasm of breast (principal); Z80.3 Family history of malignant neoplasm of breast; Z78.0 Asymptomatic menopausal state
CPT/HCPCS: 77063; 77067

== ENCOUNTER → 2025-02-04 | Outpatient (CLI) | payer BC ==
--- NOTE | 2025-02-04 14:05 | US ---
EXAMINATION TYPE: US extremity nonvasc complt RT DATE OF EXAM: 02/04/2025 COMPARISON: NONE CLINICAL INDICATION: Female, 64 years old with history of M25.551 RIGHT HIP PAIN W07.XXXA S70.01XA; R ight hip pain. Pt fell 1 month ago. She feels a large baseball-size lump on lateral right hip/femur. TECHNIQUE: Scanned palpable area of concern FINDINGS: Complex area seen at palpable just anterior to bone: 6.3 x 6.2 x 2.4 cm. IMPRESSION: A moderate size deep subcutaneous hematoma is present as detailed above. [facility], , 02/04/2025 2:03 PM
== END | disposition home or self-care (01) ==
LOC: RADUSWWP 13:33
PROVIDERS: ATTEND Family Medicine
DX: S70.01XA Contusion of right hip, initial encounter (principal); W07.XXXA Fall from chair, initial encounter

== ENCOUNTER → 2025-03-08 | Outpatient (CLI) | payer BC ==
--- NOTE | 2025-03-08 18:05 | MM ---
Reason for Exam: Screening (asymptomatic). Last screening mammogram was performed 12 month(s) ago. Patient History: Menarche at age 18. Patient has no children. Left ovary removed at age 41. Hysterectomy at age 41. Postmenopausal. Hormonal Contraceptives, starting at age 31 for 7 years. Maternal aunt (Lori) had breast cancer, age 45. Maternal aunt (Perla) had breast cancer, age 45. Risk Values: Maryjane 5 year model risk: 1.6%. NCI Lifetime model risk: 6.8%. Prior Study Comparison: 11/19/2021 Bilateral Screening Mammogram, [facility]. 11/22/2022 Bilateral MG screening mammo w CAD, [facility]. 02/21/2024 Bilateral MG 3D screening mammo w/cad, [facility]. Tissue Density: The breasts are heterogeneously dense, which may obscure small masses. Findings: Analyzed By CAD. Unchanged areas of asymmetric density. There is no suspicious group of microcalcifications or new suspicious mass in either breast. Overall Assessment: Benign, BI-RAD 2 Management: Screening Mammogram of both breasts in 1 year. Patient should continue monthly self-breast exams. A clinical breast exam by your physician is recommended on an annual basis. This exam should not preclude additional follow-up of suspicious palpable abnormalities. Note on Maryjane scores and lifetime risk: 1. A Maryjane score greater than 3% is considered moderate risk. If this is the case, consider specialist referral to assess eligibility for a risk reducing agent. 2. If overall lifetime risk for the development of breast cancer is 20% or higher, the patient may qualify for future screening with alternating mammogram and breast MRI. [facility], , 03/08/2025 6:02 PM. Electronically signed and approved by: Brigitte Dockery M.D. Radiologist
== END | disposition home or self-care (01) ==
LOC: RADMAMWWP 10:09
PROVIDERS: ATTEND Family Medicine
DX: Z12.31 Encounter for screening mammogram for malignant neoplasm of breast (principal); R92.333 Mammographic heterogeneous density, bilateral breasts; Z78.0 Asymptomatic menopausal state; Z80.3 Family history of malignant neoplasm of breast; Z92.0 Personal history of contraception
CPT/HCPCS: 77063; 77067